=== PATIENT | female | born 1945 | race Two or more races ===

== ENCOUNTER → 2016-07-09 | Outpatient (CLI) | payer MEDICARE, OTHER ==
[~2016-07-09] MED LIST: LEVEMIR SC; LISI-646 PO; METF-312 PO; METO-158 PO; OMEPRAZOLE PO
== END | disposition home or self-care (01) ==
LOC: Rad HDHVI 10:24
PROVIDERS: ATTEND Internal Medicine Cardiovascular Disease
DX: I10 Essential (primary) hypertension (principal); E78.00 Pure hypercholesterolemia, unspecified
CPT/HCPCS: 93306

== ENCOUNTER → 2016-07-23 | Outpatient (CLI) | payer MEDICARE, OTHER | END | disposition home or self-care (01) | LOC: Rad HDHVI 08:33 | PROVIDERS: ATTEND Internal Medicine Cardiovascular Disease | DX: I10 Essential (primary) hypertension (principal); E78.00 Pure hypercholesterolemia, unspecified | CPT/HCPCS: 93880 ==

== ENCOUNTER → 2016-08-07 | Outpatient (CLI) | payer MEDICARE, OTHER ==
[~2016-08-07] VITALS: Ht 149.9 cm; Wt 54.4 kg
== END | disposition home or self-care (01) ==
LOC: Rad HDHVI 09:46
PROVIDERS: ATTEND Internal Medicine Cardiovascular Disease
DX: I07.1 Rheumatic tricuspid insufficiency (principal); I10 Essential (primary) hypertension; I25.2 Old myocardial infarction; E11.9 Type 2 diabetes mellitus without complications; E78.00 Pure hypercholesterolemia, unspecified; Z82.49 Family history of ischemic heart disease and other diseases of the circulatory system
CPT/HCPCS: 78452; 93017; 96374; A9500

== ENCOUNTER → 2017-01-27 | Outpatient (CLI) | payer MEDICARE, OTHER ==
[~2017-01-27] MED LIST changes: +IOHEXOL 350 MG/ML 100ML IJ ONE; -METF-312 PO; +METF-370 PO
[2017-01-27 09:55] VITALS: BP 141/61
[2017-01-27 10:40] VITALS: BP 156/79
== END | disposition home or self-care (01) ==
LOC: Rad HDHVI 09:36
PROVIDERS: ATTEND Internal Medicine Cardiovascular Disease
DX: I65.29 Occlusion and stenosis of unspecified carotid artery (principal); I65.02 Occlusion and stenosis of left vertebral artery; E11.9 Type 2 diabetes mellitus without complications; G51.0 Bell's palsy
CPT/HCPCS: 70498; 82565; 93880; 96374; G0463; Q9967; 70496

== ENCOUNTER → 2017-03-02 | Outpatient (CLI) | payer MEDICARE, OTHER ==
[~2017-03-02] MED LIST changes: +ALBU1AER4 IN; +AMLO10TA2 PO; +ASPI81TA27 PO; +BUDE2SUS3 IN; +CLOP75TA28 PO; +INSLISPI SC; -IOHEXOL 350 MG/ML 100ML IJ ONE; +RAMI2.5C33 PO
[2017-03-02 11:10] VITALS: BP 116/74
[2017-03-02 11:45] VITALS: BP 137/77
[2017-03-02 13:06] LABS: Basophils # (auto) 0 uL; Basophils % (auto) 0.5 % (0.0-2.0); Eosinophils # (auto) 0.3 uL; Hematocrit 42.4 % (36.0-46.0); Hemoglobin 14.7 g/dL (12.2-16.2); Lymphocytes # (auto) 1.9 uL; Lymphocytes % (auto) 32.2 % (10.0-50.0); Mean Corpuscular Hemoglobin 30.9 pg (28.0-32.0); Mean Corpuscular Hgb Conc. 34.6 g/dL (32.0-36.0); Mean Corpuscular Volume 89.3 fL (80.0-100.0); Mean Platelet Volume 8.3 fL (6.9-10.8); Monocytes # (auto) 0.4 uL; Monocytes % (auto) 7.5 % (0.0-12.0); Neutrophils # (auto) 3.2 uL; Neutrophils % (auto) 54.8 % (37.0-80.0); Nucleated Red Blood Cells % 0.1 %; Platelet Count (auto) 206 10^3/uL (140-450); Red Cell Distribution Width 12.7 % (11.8-14.3); White Blood Cell 5.8 10^3/uL (4.4-10.8)
[2017-03-02 13:14] LABS: INR 0.93 (0.9-1.15); Partial Thromboplastin Time 23.6 sec (22.64-33.71); Prothrombin Time 10.1 sec (9.37-12.3)
[2017-03-02 13:29] LABS: BUN/Creatinine Ratio 36.9; Calcium 9.3 mg/dL (8.5-10.1); Potassium 4.6 mmol/L (3.5-5.1)
== END | disposition home or self-care (01) ==
LOC: Rad HDHVI 10:42
PROVIDERS: ATTEND Internal Medicine Cardiovascular Disease
DX: Z01.818 Encounter for other preprocedural examination (principal); I70.0 Atherosclerosis of aorta; I10 Essential (primary) hypertension; D64.9 Anemia, unspecified; R79.1 Abnormal coagulation profile; I65.29 Occlusion and stenosis of unspecified carotid artery; I25.2 Old myocardial infarction; E78.00 Pure hypercholesterolemia, unspecified
CPT/HCPCS: 36415; 71020; 80048; 85025; 85610; 85730; 93005; G0463

== ENCOUNTER → 2017-04-13 | Outpatient (CLI) | payer MEDICARE, OTHER ==
[~2017-04-13] MED LIST changes: -LISI-646 PO; -OMEPRAZOLE PO; +PRAS10TA6 PO
[2017-04-13 11:30] VITALS: BP 163/74
[2017-04-13 11:50] VITALS: BP 153/69
[2017-04-13 16:20] LABS: Basophils # (auto) 0 uL; Basophils % (auto) 0.9 % (0.0-2.0); Eosinophils # (auto) 0.4 uL; Eosinophils % (auto) 8.5 % (0.0-7.0); Lymphocytes # (auto) 1.4 uL; Lymphocytes % (auto) 26.2 % (10.0-50.0); Mean Corpuscular Hemoglobin 30.4 pg (28.0-32.0); Mean Corpuscular Hgb Conc. 34.1 g/dL (32.0-36.0); Mean Corpuscular Volume 89.2 fL (80.0-100.0); Monocytes # (auto) 0.4 uL; Monocytes % (auto) 7.8 % (0.0-12.0); Neutrophils # (auto) 2.9 uL; Neutrophils % (auto) 56.6 % (37.0-80.0); Nucleated Red Blood Cells % 0.1 %; Platelet Count (auto) 204 10^3/uL (140-450); Red Blood Cells 4.59 10^6/uL (4.0-5.20); Red Cell Distribution Width 12.6 % (11.8-14.3); White Blood Cell 5.2 10^3/uL (4.4-10.8)
[2017-04-13 16:35] LABS: INR 0.94 (0.9-1.15); Partial Thromboplastin Time 25.2 sec (22.64-33.71); Prothrombin Time 10.2 sec (9.37-12.3)
[2017-04-13 16:37] LABS: BUN/Creatinine Ratio 36.2; Calcium 8.7 mg/dL (8.5-10.1); Potassium 4.1 mmol/L (3.5-5.1)
== END | disposition home or self-care (01) ==
LOC: Rad HDHVI 10:39
PROVIDERS: ATTEND Internal Medicine Cardiovascular Disease
DX: Z01.812 Encounter for preprocedural laboratory examination (principal); D64.9 Anemia, unspecified; I10 Essential (primary) hypertension; R79.1 Abnormal coagulation profile
CPT/HCPCS: 36415; 71046; 80048; 85025; 85610; 85730; 93005; G0463

== ENCOUNTER 2017-04-16 07:19 | Inpatient (IN) | payer MEDICARE, OTHER ==
[~2017-04-16] VITALS: Ht 149.9 cm; Wt 53.1 kg
[~2017-04-16 07:19] MED LIST changes: -AMLO10TA2 PO; +ANGIOMAX 250 MG VIAL IV ONE; -CLOP75TA28 PO; +fentaNYL CITRATE 100 MCG/2 ML VL ONE
[2017-04-16] MEDS ORDERED: MIDAZOLAM HCL 1MG/1ML-2 ML VIAL ONE (07:20)
[2017-04-16] MEDS ORDERED: IOHEXOL 350 MG/ML 100ML IJ ONE ×2 (07:30→07:37)
[2017-04-16] MEDS ORDERED: LIDOCAINE 2%HCL (LOCAL ANESTH.) INJ 20ML MDV ONE (07:30)
[2017-04-16] MEDS ORDERED: DOPamine 1600MCG/ML D5W 250 ML IV ONE (08:11)
[2017-04-16] MEDS ORDERED: HEPARIN DRIP/D5W 100UNITS/ML 250 ML IV ONE (08:56)
[2017-04-16] MEDS ORDERED: NITROGLYCERIN 0.4 MG SL TAB SL PRN (09:30)
[2017-04-16] MEDS ORDERED: ONDANSETRON HCL 4 MG/2 ML VIAL IV PRN (09:30)
[2017-04-16] MEDS ORDERED: HEPARIN SODIUM (PORCINE) 5000 UNITS/ML 1ML VIAL ONE (09:30)
[2017-04-16] MEDS ORDERED: HEPARIN SODIUM (PORCINE) 5000 UNITS/ML 1ML VIAL IV ONE (09:30)
[2017-04-16] MEDS ORDERED: ZOLPIDEM TARTRATE 5 MG TAB PO PRN (09:30)
[2017-04-16] MEDS ORDERED: LORazepam 0.5 MG TAB PO PRN (09:30)
[2017-04-16] MEDS ORDERED: ACETAMINOPHEN 500 MG TAB PO PRN (09:30)
[2017-04-16] MEDS ORDERED: MORPHINE SULF INJ 2 MG/ML SYRINGE 1ML IV PRN ×2 (09:30)
[2017-04-16] MEDS ORDERED: HEPARIN DRIP/D5W 100UNITS/ML 250 ML IV SCH (09:45)
[2017-04-16] MEDS: HEPARIN DRIP/D5W 100UNITS/ML 250 ML IV SCH (10:15)
[2017-04-16 10:23] LABS: Basophils # (auto) 0 uL; Basophils % (auto) 0.7 % (0.0-2.0); Eosinophils # (auto) 0.3 uL; Hemoglobin 14.8 g/dL (12.2-16.2); Lymphocytes # (auto) 1.3 uL; Lymphocytes % (auto) 22.2 % (10.0-50.0); Mean Corpuscular Hemoglobin 30.2 pg (28.0-32.0); Mean Corpuscular Hgb Conc. 34.3 g/dL (32.0-36.0); Monocytes # (auto) 0.4 uL; Monocytes % (auto) 7.3 % (0.0-12.0); Neutrophils # (auto) 3.8 uL; Neutrophils % (auto) 64.8 % (37.0-80.0); Nucleated Red Blood Cells % 0.2 %; Platelet Count (auto) 205 10^3/uL (140-450); Red Blood Cells 4.89 10^6/uL (4.0-5.20); Red Cell Distribution Width 12.7 % (11.8-14.3); White Blood Cell 5.8 10^3/uL (4.4-10.8)
[2017-04-16] MEDS ORDERED: DEXTROSE (50%) 50ML SYRG IV PRN ×2 (10:30)
[2017-04-16 10:48] LABS: INR 3.45 (0.9-1.15); Prothrombin Time 38.1 sec (9.37-12.3)
[2017-04-16 10:52] LABS: Partial Thromboplastin Time 72.4 sec (22.64-33.71)
[2017-04-16] MEDS: ACCU-CHEK COMFORT CURVE STRIP VI SCH ×3 (10:55→21:50)
[2017-04-16] MEDS: InsuLIN REG 1unit/0.01ml Soln (100units/ml) SC SCH ×3 (10:57→21:54)
[2017-04-16] MEDS ORDERED: InsuLIN REG 1unit/0.01ml Soln (100units/ml) SC SCH (11:30)
[2017-04-16] MEDS ORDERED: ACCU-CHEK COMFORT CURVE STRIP VI SCH (11:30)
[2017-04-16 17:30] VITALS: BP 151/58
[2017-04-16 17:36] LABS: INR 0.98 (0.9-1.15); Partial Thromboplastin Time 39.9 sec (22.64-33.71); Prothrombin Time 10.7 sec (9.37-12.3)
[2017-04-16 20:00] VITALS: BP 136/70
[2017-04-16] MEDS ORDERED: INSULIN DETEMIR(LEVEMIR) 1unit/0.01ml Soln (100units/ml) SC SCH (22:00)
[2017-04-17] VITALS (7 sets, daily range): BP systolic 113–150; BP diastolic 61–77
[2017-04-17 01:03] LABS: INR 0.96 (0.9-1.15); Partial Thromboplastin Time 45.8 sec (22.64-33.71); Prothrombin Time 10.5 sec (9.37-12.3)
[2017-04-17 05:37] LABS: Basophils # (auto) 0 uL; Basophils % (auto) 0.5 % (0.0-2.0); Eosinophils # (auto) 0.4 uL; Eosinophils % (auto) 5.4 % (0.0-7.0); Hematocrit 41.6 % (36.0-46.0); Hemoglobin 14.3 g/dL (12.2-16.2); Lymphocytes % (auto) 28.4 % (10.0-50.0); Mean Corpuscular Hemoglobin 30.2 pg (28.0-32.0); Mean Corpuscular Hgb Conc. 34.4 g/dL (32.0-36.0); Mean Corpuscular Volume 87.6 fL (80.0-100.0); Monocytes # (auto) 0.6 uL; Monocytes % (auto) 8.8 % (0.0-12.0); Neutrophils # (auto) 4.1 uL; Neutrophils % (auto) 56.9 % (37.0-80.0); Nucleated Red Blood Cells % 0.1 %; Platelet Count (auto) 212 10^3/uL (140-450); Red Blood Cells 4.75 10^6/uL (4.0-5.20); Red Cell Distribution Width 12.7 % (11.8-14.3); White Blood Cell 7.2 10^3/uL (4.4-10.8)
[2017-04-17 05:54] LABS: Calcium 8.8 mg/dL (8.5-10.1); Potassium 3.8 mmol/L (3.5-5.1)
[2017-04-17 05:55] LABS: INR 0.96 (0.9-1.15); Partial Thromboplastin Time 56.5 sec (22.64-33.71); Prothrombin Time 10.5 sec (9.37-12.3)
[2017-04-17] MEDS: InsuLIN REG 1unit/0.01ml Soln (100units/ml) SC SCH ×3 (06:41→17:31)
[2017-04-17] MEDS: ACCU-CHEK COMFORT CURVE STRIP VI SCH ×3 (06:41→17:31)
[2017-04-17] MEDS: HEPARIN DRIP/D5W 100UNITS/ML 250 ML IV SCH (12:00)
[2017-04-17 15:15] LABS: INR 0.97 (0.9-1.15); Prothrombin Time 10.6 sec (9.37-12.3)
[2017-04-17 22:22] LABS: INR 0.99 (0.9-1.15); Prothrombin Time 10.8 sec (9.37-12.3)
[2017-04-18 04:00] VITALS: BP 133/67
[2017-04-18 05:55] LABS: INR 0.98 (0.9-1.15); Prothrombin Time 10.7 sec (9.37-12.3)
[2017-04-18 06:03] LABS: Partial Thromboplastin Time 72.3 sec (22.64-33.71)
[2017-04-18] MEDS: InsuLIN REG 1unit/0.01ml Soln (100units/ml) SC SCH ×5 (06:38→22:07)
[2017-04-18] MEDS: INSULIN DETEMIR(LEVEMIR) 1unit/0.01ml Soln (100units/ml) SC SCH ×3 (06:38→22:08)
[2017-04-18] MEDS: ACCU-CHEK COMFORT CURVE STRIP VI SCH ×5 (06:39→22:08)
[2017-04-18] MEDS: HEPARIN DRIP/D5W 100UNITS/ML 250 ML IV SCH (10:26)
[2017-04-18 11:59] VITALS: BP 134/74
[2017-04-18 16:47] VITALS: BP 143/64
[2017-04-18 20:00] VITALS: BP 145/70
[2017-04-19] VITALS (7 sets, daily range): BP systolic 114–152; BP diastolic 55–74
[2017-04-19] MEDS: HYDROcodone-ACET 5/325MG TAB PO PRN ×2 (04:50→20:25)
[2017-04-19] MEDS: INSULIN DETEMIR(LEVEMIR) 1unit/0.01ml Soln (100units/ml) SC SCH ×2 (06:39→22:20)
[2017-04-19] MEDS: InsuLIN REG 1unit/0.01ml Soln (100units/ml) SC SCH ×4 (06:39→22:20)
[2017-04-19] MEDS: ACCU-CHEK COMFORT CURVE STRIP VI SCH ×4 (06:40→22:20)
[2017-04-19] MEDS: HEPARIN DRIP/D5W 100UNITS/ML 250 ML IV SCH (07:30)
[2017-04-19 07:39] LABS: Basophils # (auto) 0.1 uL; Basophils % (auto) 0.9 % (0.0-2.0); Eosinophils # (auto) 0.4 uL; Eosinophils % (auto) 7.1 % (0.0-7.0); Hematocrit 38.5 % (36.0-46.0); Hemoglobin 13.2 g/dL (12.2-16.2); Lymphocytes # (auto) 1.9 uL; Lymphocytes % (auto) 33.4 % (10.0-50.0); Mean Corpuscular Hemoglobin 30.3 pg (28.0-32.0); Mean Corpuscular Hgb Conc. 34.4 g/dL (32.0-36.0); Mean Corpuscular Volume 88.2 fL (80.0-100.0); Monocytes # (auto) 0.5 uL; Monocytes % (auto) 8.8 % (0.0-12.0); Neutrophils # (auto) 2.9 uL; Neutrophils % (auto) 49.8 % (37.0-80.0); Platelet Count (auto) 193 10^3/uL (140-450); Red Blood Cells 4.36 10^6/uL (4.0-5.20); Red Cell Distribution Width 12.9 % (11.8-14.3); White Blood Cell 5.8 10^3/uL (4.4-10.8)
[2017-04-19 07:59] LABS: Albumin 2.8 g/dL (3.4-5.0); BUN/Creatinine Ratio 35.8; Calcium 9.2 mg/dL (8.5-10.1); Potassium 3.9 mmol/L (3.5-5.1)
[2017-04-19 08:01] LABS: Bilirubin, Total 0.6 mg/dL (0.2-1.0); Total Protein 6.7 g/dL (6.4-8.2)
[2017-04-19 08:02] LABS: INR 0.96 (0.9-1.15); Prothrombin Time 10.5 sec (9.37-12.3)
[2017-04-19 08:40] LABS: Partial Thromboplastin Time 73.8 sec (22.64-33.71)
[2017-04-20] VITALS: BP_SYST 102; BP_SYST 157; BP_DIAS 57; BP_DIAS 73
[2017-04-20 04:00] VITALS: BP 121/72
[2017-04-20 05:55] LABS: Basophils # (auto) 0 uL; Basophils % (auto) 0.5 % (0.0-2.0); Eosinophils # (auto) 0.5 uL; Eosinophils % (auto) 8.7 % (0.0-7.0); Hematocrit 40.2 % (36.0-46.0); Hemoglobin 13.7 g/dL (12.2-16.2); Lymphocytes # (auto) 1.9 uL; Lymphocytes % (auto) 36.4 % (10.0-50.0); Mean Corpuscular Hemoglobin 30.2 pg (28.0-32.0); Mean Corpuscular Hgb Conc. 34.1 g/dL (32.0-36.0); Mean Corpuscular Volume 88.3 fL (80.0-100.0); Monocytes # (auto) 0.5 uL; Monocytes % (auto) 9.6 % (0.0-12.0); Neutrophils # (auto) 2.3 uL; Neutrophils % (auto) 44.8 % (37.0-80.0); Nucleated Red Blood Cells % 0.1 %; Platelet Count (auto) 205 10^3/uL (140-450); Red Blood Cells 4.55 10^6/uL (4.0-5.20); White Blood Cell 5.2 10^3/uL (4.4-10.8)
[2017-04-20] MEDS: InsuLIN REG 1unit/0.01ml Soln (100units/ml) SC SCH ×4 (06:31→22:00)
[2017-04-20] MEDS: ACCU-CHEK COMFORT CURVE STRIP VI SCH ×4 (06:31→22:06)
[2017-04-20] MEDS: INSULIN DETEMIR(LEVEMIR) 1unit/0.01ml Soln (100units/ml) SC SCH ×2 (06:31→22:07)
[2017-04-20] MEDS: HEPARIN DRIP/D5W 100UNITS/ML 250 ML IV SCH (07:08)
[2017-04-20 08:00] VITALS: BP 128/64
[2017-04-20 12:00] VITALS: BP 127/76
[2017-04-20 15:56] VITALS: BP 137/70
[2017-04-20 19:59] VITALS: BP 125/71
[2017-04-20] MEDS: HYDROcodone-ACET 5/325MG TAB PO PRN (22:07)
[2017-04-21] VITALS: BP 133/68
[2017-04-21 04:00] VITALS: BP 143/69
[2017-04-21 05:30] LABS: Basophils # (auto) 0 uL; Basophils % (auto) 0.5 % (0.0-2.0); Eosinophils # (auto) 0.5 uL; Eosinophils % (auto) 9.6 % (0.0-7.0); Hematocrit 41.7 % (36.0-46.0); Hemoglobin 14.1 g/dL (12.2-16.2); Lymphocytes # (auto) 2.1 uL; Lymphocytes % (auto) 43.5 % (10.0-50.0); Mean Corpuscular Hemoglobin 30.5 pg (28.0-32.0); Mean Corpuscular Hgb Conc. 33.9 g/dL (32.0-36.0); Mean Corpuscular Volume 89.9 fL (80.0-100.0); Monocytes # (auto) 0.5 uL; Monocytes % (auto) 9.9 % (0.0-12.0); Neutrophils # (auto) 1.7 uL; Neutrophils % (auto) 36.5 % (37.0-80.0); Nucleated Red Blood Cells % 0.1 %; Platelet Count (auto) 193 10^3/uL (140-450); Red Blood Cells 4.64 10^6/uL (4.0-5.20); Red Cell Distribution Width 12.9 % (11.8-14.3); White Blood Cell 4.7 10^3/uL (4.4-10.8)
[2017-04-21 05:57] LABS: INR 0.95 (0.9-1.15); Prothrombin Time 10.4 sec (9.37-12.3)
[2017-04-21] MEDS: INSULIN DETEMIR(LEVEMIR) 1unit/0.01ml Soln (100units/ml) SC SCH ×2 (06:24→21:26)
[2017-04-21] MEDS: ACCU-CHEK COMFORT CURVE STRIP VI SCH ×4 (06:24→21:26)
[2017-04-21] MEDS: InsuLIN REG 1unit/0.01ml Soln (100units/ml) SC SCH ×4 (06:25→21:26)
[2017-04-21 08:00] VITALS: BP 144/69
[2017-04-21] MEDS: HEPARIN DRIP/D5W 100UNITS/ML 250 ML IV SCH (09:27)
[2017-04-21 11:50] VITALS: BP 136/76
[2017-04-21 12:51] LABS: INR 0.93 (0.9-1.15); Partial Thromboplastin Time 53.6 sec (22.64-33.71); Prothrombin Time 10.1 sec (9.37-12.3)
[2017-04-21 15:50] VITALS: BP 138/66
[2017-04-21 19:32] LABS: INR 0.95 (0.9-1.15); Prothrombin Time 10.4 sec (9.37-12.3)
[2017-04-21 19:54] VITALS: BP 137/67
[2017-04-21] MEDS: HYDROcodone-ACET 5/325MG TAB PO PRN (21:27)
[2017-04-22] VITALS (7 sets, daily range): BP systolic 136–154; BP diastolic 73–79
[2017-04-22 04:20] LABS: INR 0.94 (0.9-1.15); Prothrombin Time 10.2 sec (9.37-12.3)
[2017-04-22] MEDS: InsuLIN REG 1unit/0.01ml Soln (100units/ml) SC SCH ×4 (06:25→22:00)
[2017-04-22] MEDS: INSULIN DETEMIR(LEVEMIR) 1unit/0.01ml Soln (100units/ml) SC SCH ×2 (06:25→22:00)
[2017-04-22] MEDS: ACCU-CHEK COMFORT CURVE STRIP VI SCH ×5 (06:25→23:52)
[2017-04-22] MEDS ORDERED: VANCOMYCIN 1GM/250ML 250 ML IV ONE (07:30)
[2017-04-22] MEDS ORDERED: ACCU-CHEK COMFORT CURVE STRIP VI ONE (07:30)
[2017-04-22] MEDS: HEPARIN DRIP/D5W 100UNITS/ML 250 ML IV SCH (09:45)
[2017-04-22] MEDS: CHLORHEXIDINE 4% TOPICAL soln 473ML TOP SCH ×2 (10:00→22:00)
[2017-04-22 10:05] LABS: INR 0.95 (0.9-1.15); Prothrombin Time 10.4 sec (9.37-12.3)
[2017-04-22 11:09] LABS: Partial Thromboplastin Time 82.6 sec (22.64-33.71)
[2017-04-22] MEDS ORDERED: ALBUMIN 25% 400 ML IV ONE (13:33)
[2017-04-22 13:39] LABS: Urine Bacteria NONE SEEN /hpf (None Seen); Urine Blood Negative /uL (Negative); Urine Specific Gravity 1.006 (1.001-1.035); Urine WBC 1 /hpf (0 - 5)
[2017-04-22] MEDS: HYDROcodone-ACET 5/325MG TAB PO PRN (21:07)
[2017-04-22] MEDS ORDERED: ASCORBIC ACID 500 MG TAB PO ONE (22:00)
[2017-04-22] MEDS ORDERED: InsuLIN R (HUMAN) 100 UNITS in SODIUM CHL 0.9% 99 ML IV SCH ×8 (23:26)
[2017-04-22] MEDS ORDERED: DEXTROSE (50%) 50ML SYRG IV PRN (23:30)
[2017-04-23] VITALS (53 sets, daily range): BP systolic 102–167; BP diastolic 49–87
[2017-04-23] MEDS: ACCU-CHEK COMFORT CURVE STRIP VI SCH ×17 (01:30→23:00)
[2017-04-23] MEDS: CHLORHEXIDINE 4% TOPICAL soln 473ML TOP SCH ×2 (01:30→22:00)
[2017-04-23] MEDS ORDERED: CHLORHEXIDINE 4% TOPICAL soln 473ML TOP ONE (02:00)
[2017-04-23 03:43] LABS: Basophils # (auto) 0 uL; Basophils % (auto) 0.4 % (0.0-2.0); Eosinophils # (auto) 0.4 uL; Eosinophils % (auto) 6.1 % (0.0-7.0); Hematocrit 39.1 % (36.0-46.0); Hemoglobin 13.6 g/dL (12.2-16.2); Lymphocytes # (auto) 1.8 uL; Lymphocytes % (auto) 31.9 % (10.0-50.0); Mean Corpuscular Hemoglobin 30.6 pg (28.0-32.0); Mean Corpuscular Hgb Conc. 34.8 g/dL (32.0-36.0); Monocytes # (auto) 0.7 uL; Monocytes % (auto) 11.4 % (0.0-12.0); Neutrophils # (auto) 2.9 uL; Neutrophils % (auto) 50.2 % (37.0-80.0); Platelet Count (auto) 209 10^3/uL (140-450); Red Blood Cells 4.44 10^6/uL (4.0-5.20); Red Cell Distribution Width 12.9 % (11.8-14.3); White Blood Cell 5.8 10^3/uL (4.4-10.8)
[2017-04-23 03:56] LABS: INR 0.95 (0.9-1.15); Partial Thromboplastin Time 35.4 sec (22.64-33.71); Prothrombin Time 10.3 sec (9.37-12.3)
[2017-04-23 04:08] LABS: Albumin 3.1 g/dL (3.4-5.0); BUN/Creatinine Ratio 33.3; Bilirubin, Total 0.4 mg/dL (0.2-1.0); Calcium 8.9 mg/dL (8.5-10.1); Potassium 3.9 mmol/L (3.5-5.1); Total Protein 7.4 g/dL (6.4-8.2)
[2017-04-23] MEDS ORDERED: ALBUMIN 5% 750 ML IV ONE (05:54)
[2017-04-23] MEDS ORDERED: ALBUMIN 25% 400 ML IV ONE (05:54)
[2017-04-23] MEDS ORDERED: NITROGLYCERIN 50MG/250ML 250 ML IV ONE (05:55)
[2017-04-23] MEDS ORDERED: PROPOFOL 200 ML IV ONE (05:55)
[2017-04-23] MEDS ORDERED: CALCIUM CHLOR(10%) 100MG/ML 10ML SYRINGE IV ONE ×2 (05:55→16:13)
[2017-04-23] MEDS ORDERED: ROCURONIUM 10MG/ML 10ML VIAL IV ONE (05:56)
[2017-04-23] MEDS ORDERED: fentaNYL CITRATE 10 ML ONE (06:02)
[2017-04-23] MEDS ORDERED: MIDAZOLAM HCL 1MG/1ML-2 ML VIAL ONE ×2 (06:03)
[2017-04-23] MEDS: INSULIN DETEMIR(LEVEMIR) 1unit/0.01ml Soln (100units/ml) SC SCH ×2 (06:23→22:00)
[2017-04-23] MEDS ORDERED: PAPAVERINE HCL 60 MG/2 ML 2ML VIAL ONE (06:46)
[2017-04-23] MEDS ORDERED: BACITRACIN INJ 50000 UNIT VIAL ONE (06:47)
[2017-04-23] MEDS ORDERED: HEPARIN 1,000 UNITS/ml 1ML VIAL ONE (06:47)
[2017-04-23] MEDS ORDERED: NEOMYCIN-BACITRACIN-POLYM 15GM TOP OINT TOP ONE (06:59)
[2017-04-23] MEDS ORDERED: CHLORHEXIDINE 0.12% ORAL rinse 473ML MT ONE (07:30)
[2017-04-23] MEDS ORDERED: AZTREONAM 1GM INJ 1 GM in D5W 5% 50 ML IV ONE (07:30)
[2017-04-23] MEDS ORDERED: VASOPRESSIN 50 UNITS in SODIUM CHL 0.9% 247.5 ML IV ONE (08:00)
[2017-04-23] MEDS ORDERED: EPINEPHrine HCL 4 MG in D5W 5% 250 ML IV ONE (08:00)
[2017-04-23] MEDS ORDERED: InsuLIN R (HUMAN) 100 UNITS in SODIUM CHL 0.9% 99 ML IV ONE (08:00)
[2017-04-23] MEDS ORDERED: HEPARIN 30000 UNITS in SODIUM CHLORIDE 0.9% 1000 ML IV ONE (08:00)
[2017-04-23] MEDS ORDERED: PHENYLEPHRINE INJ 20 MG in SODIUM CHL 0.9% 250 ML IV ONE (08:00)
[2017-04-23] MEDS ORDERED: NOREPINEPHRINE 8 MG/250ML KIT 250 ML IV ONE (08:00)
[2017-04-23] MEDS ORDERED: AMINOCAPROIC ACID 5 GM in SODIUM CHL 0.9% 250 ML IV ONE (08:00)
[2017-04-23] MEDS ORDERED: AMINOCAPROIC ACID 10 GM in SODIUM CHL 0.9% 100 ML IV ONE (08:00)
[2017-04-23] MEDS ORDERED: PLASMA-LYTE A pH7.4 5,000 ML INJ ONE (09:41)
[2017-04-23] MEDS: HEPARIN DRIP/D5W 100UNITS/ML 250 ML IV SCH (09:45)
[2017-04-23] MEDS ORDERED: ESMOLOL HCL IV ONE (10:08)
[2017-04-23 13:44] LABS: Basophils # (auto) 0 uL; Basophils % (auto) 0.2 % (0.0-2.0); Eosinophils # (auto) 0.1 uL; Hematocrit 25.9 % (36.0-46.0); Hemoglobin 9.1 g/dL (12.2-16.2); Lymphocytes % (auto) 13.2 % (10.0-50.0); Mean Corpuscular Hemoglobin 31.4 pg (28.0-32.0); Mean Corpuscular Hgb Conc. 35.1 g/dL (32.0-36.0); Mean Corpuscular Volume 89.3 fL (80.0-100.0); Monocytes # (auto) 0.2 uL; Monocytes % (auto) 2.4 % (0.0-12.0); Neutrophils # (auto) 6.4 uL; Neutrophils % (auto) 83.2 % (37.0-80.0); Nucleated Red Blood Cells % 0.1 %; Platelet Count (auto) 90 10^3/uL (140-450); Red Cell Distribution Width 12.9 % (11.8-14.3); White Blood Cell 7.7 10^3/uL (4.4-10.8)
[2017-04-23 13:56] LABS: INR 1.23 (0.9-1.15); Partial Thromboplastin Time 30.1 sec (22.64-33.71); Prothrombin Time 13.4 sec (9.37-12.3)
[2017-04-23 14:07] LABS: Albumin 4.4 g/dL (3.4-5.0); Bilirubin, Total 1.2 mg/dL (0.2-1.0); Calcium 10.3 mg/dL (8.5-10.1); Potassium 4.1 mmol/L (3.5-5.1); Total Protein 6.4 g/dL (6.4-8.2)
[2017-04-23] MEDS ORDERED: INSULIN DRIP 100 UNIT/100ML 100 ML IV SCH (14:32)
[2017-04-23] MEDS ORDERED: PHENYLEPHRINE IV 250 ML IV SCH (14:33)
[2017-04-23] MEDS ORDERED: NITROGLYCERIN 50MG/250ML 250 ML IV SCH (14:33)
[2017-04-23] MEDS ORDERED: PROPOFOL 100 ML IV SCH (14:33)
[2017-04-23] MEDS ORDERED: NICARDIPINE 25MG/250ML BAG KIT 250 ML IV SCH (14:33)
[2017-04-23] MEDS ORDERED: DEXMEDETOMIDINE HCL 400 MCG in D5W 5% 96 ML IV SCH (14:42)
[2017-04-23] MEDS ORDERED: AMIODARONE HCL 900 MG in DEXTROSE 500 ML IV SCH (14:43)
[2017-04-23] MEDS ORDERED: SODIUM BICARBONATE 8.4% INJ 50ML SYRINGE IV PRN (14:45)
[2017-04-23] MEDS ORDERED: CALCIUM GLUC 4.65meq/50ml D5AE 50 ML IV PRN (14:45)
[2017-04-23] MEDS ORDERED: VANCOMYCIN 1GM/250ML 250 ML IV SCH (14:45)
[2017-04-23] MEDS ORDERED: ZOLPIDEM TARTRATE 5 MG TAB PO PRN (14:45)
[2017-04-23] MEDS ORDERED: MAGNESIUM SULFATE 1GM/100ML 100 ML IV PRN (14:45)
[2017-04-23] MEDS ORDERED: ONDANSETRON HCL 4 MG/2 ML VIAL IV PRN (14:45)
[2017-04-23] MEDS ORDERED: fentaNYL CITRATE 100 MCG/2 ML VL IV PRN (14:45)
[2017-04-23] MEDS ORDERED: MORPHINE SULFATE 10 MG/ML INJ 1ML SDV IV PRN ×3 (14:45)
[2017-04-23] MEDS ORDERED: FUROSEMIDE 20 MG/2 ML VIAL IV PRN (14:45)
[2017-04-23] MEDS ORDERED: AMIODARONE HCL 150 MG in D5W 5% 100 ML IV ONE (14:45)
[2017-04-23] MEDS ORDERED: DEXTROSE (50%) 50ML SYRG IV PRN (14:45)
[2017-04-23] MEDS ORDERED: METOCLOPRAMIDE HCL 5MG/ml INJ 2ml VIAL IV PRN (14:45)
[2017-04-23] MEDS: SODIUM CHLORIDE 0.9% 500 ML IV SCH (15:00)
[2017-04-23] MEDS: SODIUM CHLORIDE 0.9% 1,000 ML IV SCH (15:00)
[2017-04-23 15:09] LABS: Basophils # (auto) 0 uL; Basophils % (auto) 0.2 % (0.0-2.0); Eosinophils # (auto) 0.1 uL; Eosinophils % (auto) 0.9 % (0.0-7.0); Hematocrit 31.4 % (36.0-46.0); Lymphocytes # (auto) 1.1 uL; Lymphocytes % (auto) 11.8 % (10.0-50.0); Mean Corpuscular Hemoglobin 31.5 pg (28.0-32.0); Mean Corpuscular Hgb Conc. 34.9 g/dL (32.0-36.0); Mean Corpuscular Volume 90.1 fL (80.0-100.0); Monocytes # (auto) 0.6 uL; Neutrophils # (auto) 7.7 uL; Neutrophils % (auto) 81.1 % (37.0-80.0); Platelet Count (auto) 86 10^3/uL (140-450); Red Blood Cells 3.48 10^6/uL (4.0-5.20); Red Cell Distribution Width 12.5 % (11.8-14.3); White Blood Cell 9.5 10^3/uL (4.4-10.8)
[2017-04-23 15:22] LABS: INR 1.07 (0.9-1.15); Partial Thromboplastin Time 26.8 sec (22.64-33.71); Prothrombin Time 11.7 sec (9.37-12.3)
[2017-04-23] MEDS ORDERED: METOPROLOL TARTRATE 1MG/1ML-5ML VIAL IV ONE (15:30)
[2017-04-23 15:37] LABS: BUN/Creatinine Ratio 18.8; Bilirubin, Total 1.6 mg/dL (0.2-1.0); Calcium 9.5 mg/dL (8.5-10.1); Potassium 3.3 mmol/L (3.5-5.1); Total Protein 6.9 g/dL (6.4-8.2)
[2017-04-23 15:44] LABS: Phosphorus 0.5 mg/dL (2.5-4.90)
[2017-04-23 15:45] LABS: Magnesium 5.5 mg/dL (1.6-2.6)
[2017-04-23] MEDS: POTASSIUM CHL 20MEQ/50ML 50 ML IV PRN ×2 (16:13→18:02)
[2017-04-23] MEDS ORDERED: AMINOCAPROIC ACID 5 GM/20 ML VL IV ONE (16:13)
[2017-04-23] MEDS ORDERED: MAGNESIUM SULF 50% 40 MEQ/10 ML VL IV ONE (16:13)
[2017-04-23] MEDS ORDERED: ADENOSINE 6 MG/2 ML INJ IV ONE (16:13)
[2017-04-23] MEDS ORDERED: LIDOCAINE HCL 100 MG/5ML (2%) SYRG INJ IV ONE (16:13)
[2017-04-23] MEDS ORDERED: DEXAMETHASONE SODIUM PHOSP 120 MG/30ml VIAL IV ONE (16:13)
[2017-04-23] MEDS ORDERED: SODIUM BICARBONATE 8.4 % INJ 50ML VIAL IV ONE (16:13)
[2017-04-23] MEDS ORDERED: POTASSIUM CHL 2MEQ/ML 20ML IV ONE (16:13)
[2017-04-23] MEDS ORDERED: PHENYLEPHRINE HCL 10 MG/ML VL IV ONE (16:13)
[2017-04-23] MEDS ORDERED: MANNITOL 20% SOLN 100 gm/500ml BAG IV ONE (16:20)
[2017-04-23] MEDS ORDERED: ALBUMIN 25% 50 ML IV ONE (17:30)
[2017-04-23] MEDS: IPRATROPIUM BROM 0.5 MG/2.5ML INH SOL NEB SCH ×2 (17:59→22:20)
[2017-04-23] MEDS ORDERED: METOPROLOL TARTRATE 1MG/1ML-5ML VIAL IV SCH ×2 (18:00)
[2017-04-23 20:01] LABS: Basophils # (auto) 0 uL; Basophils % (auto) 0.2 % (0.0-2.0); Eosinophils # (auto) 0 uL; Eosinophils % (auto) 0.2 % (0.0-7.0); Hematocrit 31.9 % (36.0-46.0); Hemoglobin 11.1 g/dL (12.2-16.2); Lymphocytes # (auto) 0.7 uL; Lymphocytes % (auto) 7.7 % (10.0-50.0); Mean Corpuscular Hemoglobin 31.2 pg (28.0-32.0); Mean Corpuscular Hgb Conc. 34.8 g/dL (32.0-36.0); Mean Corpuscular Volume 89.9 fL (80.0-100.0); Monocytes # (auto) 0.7 uL; Monocytes % (auto) 8.3 % (0.0-12.0); Neutrophils # (auto) 7.1 uL; Neutrophils % (auto) 83.6 % (37.0-80.0); Platelet Count (auto) 98 10^3/uL (140-450); Red Blood Cells 3.54 10^6/uL (4.0-5.20); Red Cell Distribution Width 13.3 % (11.8-14.3); White Blood Cell 8.4 10^3/uL (4.4-10.8)
[2017-04-23 20:22] LABS: BUN/Creatinine Ratio 18.4; Calcium 9.7 mg/dL (8.5-10.1); Potassium 4.4 mmol/L (3.5-5.1)
[2017-04-23 20:26] LABS: Magnesium 4.6 mg/dL (1.6-2.6); Phosphorus 0.7 mg/dL (2.5-4.90)
[2017-04-23] MEDS: ALBUMIN 5% 250 ML IV PRN ×2 (20:40→21:34)
[2017-04-23] MEDS: AMIODARONE HCL 900 MG in DEXTROSE 500 ML IV SCH (20:43)
[2017-04-23] MEDS ORDERED: POTASSIUM PHOSPHATE 22 MEQ in SODIUM CHL 0.9% 100 ML IV ONE (20:45)
[2017-04-23] MEDS: AZTREONAM 1GM INJ 1 GM in D5W 5% 50 ML IV SCH (22:18)
[2017-04-23] MEDS: CHLORHEXIDINE 0.12% ORAL rinse 473ML MT SCH (22:18)
[2017-04-23] MEDS: ACETYLCYSTEINE 10 %(100MG/ML) SOL 4ML NEB SCH (22:20)
[2017-04-24] VITALS (100 sets, daily range): BP systolic 101–159; BP diastolic 53–96
[2017-04-24] MEDS ORDERED: METOPROLOL TARTRATE 1MG/1ML-5ML VIAL IV SCH
[2017-04-24] MEDS: ACCU-CHEK COMFORT CURVE STRIP VI SCH ×21 (00:29→23:24)
[2017-04-24 00:39] LABS: Potassium 4.2 mmol/L (3.5-5.1)
[2017-04-24 00:42] LABS: Magnesium 3.9 mg/dL (1.6-2.6)
[2017-04-24] MEDS: ALBUMIN 5% 250 ML IV PRN ×2 (01:03→12:39)
[2017-04-24] MEDS: IPRATROPIUM BROM 0.5 MG/2.5ML INH SOL NEB SCH ×6 (02:19→22:08)
[2017-04-24 04:43] LABS: Basophils # (auto) 0 uL; Basophils % (auto) 0.1 % (0.0-2.0); Eosinophils # (auto) 0 uL; Hematocrit 30.9 % (36.0-46.0); Hemoglobin 10.6 g/dL (12.2-16.2); Lymphocytes # (auto) 0.7 uL; Lymphocytes % (auto) 7.7 % (10.0-50.0); Mean Corpuscular Hemoglobin 30.9 pg (28.0-32.0); Mean Corpuscular Hgb Conc. 34.2 g/dL (32.0-36.0); Mean Corpuscular Volume 90.2 fL (80.0-100.0); Monocytes # (auto) 1.1 uL; Monocytes % (auto) 11.2 % (0.0-12.0); Neutrophils # (auto) 7.6 uL; Platelet Count (auto) 101 10^3/uL (140-450); Red Blood Cells 3.42 10^6/uL (4.0-5.20); Red Cell Distribution Width 13.1 % (11.8-14.3); White Blood Cell 9.4 10^3/uL (4.4-10.8)
[2017-04-24] MEDS: SODIUM CHLORIDE 0.9% 1,000 ML IV SCH (04:51)
[2017-04-24 04:55] LABS: BUN/Creatinine Ratio 27.8; Magnesium 3.9 mg/dL (1.6-2.6); Phosphorus 3.9 mg/dL (2.5-4.90); Potassium 4.2 mmol/L (3.5-5.1)
[2017-04-24] MEDS: VANCOMYCIN 1GM/250ML 250 ML IV SCH ×2 (05:18→17:39)
[2017-04-24] MEDS: ACETYLCYSTEINE 10 %(100MG/ML) SOL 4ML NEB SCH ×3 (05:50→18:35)
[2017-04-24] MEDS: AZTREONAM 1GM INJ 1 GM in D5W 5% 50 ML IV SCH ×3 (06:50→22:24)
[2017-04-24] MEDS: INSULIN DETEMIR(LEVEMIR) 1unit/0.01ml Soln (100units/ml) SC SCH ×2 (07:00→22:00)
[2017-04-24] MEDS ORDERED: ALBUMIN 25% 50 ML IV ONE ×3 (08:30→10:30)
[2017-04-24] MEDS ORDERED: PANTOPRAZOLE 40 MG/10 ML VIAL IV SCH (10:00)
[2017-04-24] MEDS: CHLORHEXIDINE 4% TOPICAL soln 473ML TOP SCH ×2 (10:00→22:00)
[2017-04-24] MEDS: CHLORHEXIDINE 0.12% ORAL rinse 473ML MT SCH ×2 (10:27→22:00)
[2017-04-24] MEDS ORDERED: HYDROcodone-ACET 7.5/325MG TAB PO PRN (12:30)
[2017-04-24] MEDS ORDERED: MORPHINE SULFATE 10 MG/ML INJ 1ML SDV IV PRN (12:30)
[2017-04-24] MEDS ORDERED: SENNA 8.6 MG TAB PO PRN (12:30)
[2017-04-24] MEDS ORDERED: HYDROcodone-ACET 5/325MG TAB PO PRN (12:30)
[2017-04-24] MEDS ORDERED: FUROSEMIDE 20 MG/2 ML VIAL ONE (12:45)
[2017-04-24] MEDS ORDERED: ZOLPIDEM TARTRATE 5 MG TAB PO PRN (12:45)
[2017-04-24] MEDS ORDERED: ASPirin-EC 81 mg tab PO ONE (12:45)
[2017-04-24] MEDS ORDERED: FUROSEMIDE 20 MG/2 ML VIAL IV ONE (12:45)
[2017-04-24] MEDS ORDERED: SODIUM CHLORIDE 0.9% 1,000 ML IV SCH (12:45)
[2017-04-24] MEDS ORDERED: ASCORBIC ACID 500 MG TAB PO ONE (13:00)
[2017-04-24] MEDS: SODIUM CHLORIDE 0.9% 500 ML IV SCH (14:33)
[2017-04-24 15:07] LABS: Basophils # (auto) 0 uL; Basophils % (auto) 0.1 % (0.0-2.0); Eosinophils # (auto) 0 uL; Hematocrit 27.9 % (36.0-46.0); Hemoglobin 9.5 g/dL (12.2-16.2); Lymphocytes # (auto) 0.6 uL; Lymphocytes % (auto) 5.9 % (10.0-50.0); Mean Corpuscular Hemoglobin 31.1 pg (28.0-32.0); Mean Corpuscular Hgb Conc. 34.2 g/dL (32.0-36.0); Mean Corpuscular Volume 91.1 fL (80.0-100.0); Monocytes # (auto) 0.9 uL; Monocytes % (auto) 9.2 % (0.0-12.0); Neutrophils # (auto) 8.5 uL; Neutrophils % (auto) 84.8 % (37.0-80.0); Platelet Count (auto) 97 10^3/uL (140-450); Red Blood Cells 3.07 10^6/uL (4.0-5.20); Red Cell Distribution Width 13.8 % (11.8-14.3)
[2017-04-24 15:25] LABS: Calcium 8.5 mg/dL (8.5-10.1); Magnesium 3.1 mg/dL (1.6-2.6); Phosphorus 4.6 mg/dL (2.5-4.90); Potassium 3.6 mmol/L (3.5-5.1)
[2017-04-24] MEDS: PROPRANOLOL HCL 1 MG/ML VIAL IV PRN (16:43)
[2017-04-24] MEDS: POTASSIUM CHL 20MEQ/100ML 100 ML IV PRN ×2 (16:54→18:53)
[2017-04-24] MEDS ORDERED: INSULIN DRIP 100 UNIT/100ML 100 ML IV SCH (17:30)
[2017-04-24] MEDS ORDERED: DEXTROSE (50%) 50ML SYRG IV PRN (17:30)
[2017-04-24] MEDS ORDERED: METOPROLOL TARTRATE 25 MG TAB PO ONE (17:45)
[2017-04-24] MEDS: FUROSEMIDE 40 MG TAB PO SCH (18:01)
[2017-04-24] MEDS: Boost Glucose Control 8 Ounces PO SCH (18:48)
[2017-04-24] MEDS: AMIODARONE HCL 900 MG in DEXTROSE 500 ML IV SCH (20:43)
[2017-04-24] MEDS ORDERED: METOPROLOL TARTRATE 25 MG TAB PO SCH (22:00)
[2017-04-24] MEDS: ATORVASTATIN 20 MG TAB PO SCH (22:30)
[2017-04-24] MEDS: ASCORBIC ACID 500 MG TAB PO SCH (22:30)
[2017-04-24] MEDS: DOCUSATE SOD 100 MG CAP PO SCH (22:30)
[2017-04-25] VITALS (95 sets, daily range): BP systolic 107–164; BP diastolic 50–95
[2017-04-25] MEDS: ACCU-CHEK COMFORT CURVE STRIP VI SCH ×20 (01:00→23:00)
[2017-04-25] MEDS: POTASSIUM CHL 20MEQ/100ML 100 ML IV PRN ×4 (03:56→21:07)
[2017-04-25 04:53] LABS: Basophils # (auto) 0 uL; Basophils % (auto) 0.2 % (0.0-2.0); Eosinophils # (auto) 0 uL; Eosinophils % (auto) 0.1 % (0.0-7.0); Hematocrit 29.4 % (36.0-46.0); Lymphocytes # (auto) 1.1 uL; Lymphocytes % (auto) 8.9 % (10.0-50.0); Mean Corpuscular Hemoglobin 31.1 pg (28.0-32.0); Mean Corpuscular Hgb Conc. 33.9 g/dL (32.0-36.0); Mean Corpuscular Volume 91.7 fL (80.0-100.0); Monocytes % (auto) 8.3 % (0.0-12.0); Neutrophils # (auto) 9.9 uL; Neutrophils % (auto) 82.5 % (37.0-80.0); Platelet Count (auto) 102 10^3/uL (140-450); Red Blood Cells 3.21 10^6/uL (4.0-5.20); Red Cell Distribution Width 13.6 % (11.8-14.3)
[2017-04-25 05:11] LABS: Albumin 4.5 g/dL (3.4-5.0); BUN/Creatinine Ratio 51.5; Calcium 8.7 mg/dL (8.5-10.1); Magnesium 2.7 mg/dL (1.6-2.6); Potassium 3.6 mmol/L (3.5-5.1)
[2017-04-25 05:14] LABS: Bilirubin, Total 1.3 mg/dL (0.2-1.0); Total Protein 6.9 g/dL (6.4-8.2)
[2017-04-25] MEDS: FUROSEMIDE 40 MG TAB PO SCH ×2 (05:19→18:06)
[2017-04-25] MEDS: AZTREONAM 1GM INJ 1 GM in D5W 5% 50 ML IV SCH ×2 (06:02→15:18)
[2017-04-25] MEDS: ACETYLCYSTEINE 10 %(100MG/ML) SOL 4ML NEB SCH ×3 (06:15→22:42)
[2017-04-25] MEDS: IPRATROPIUM BROM 0.5 MG/2.5ML INH SOL NEB SCH ×6 (06:15→22:42)
[2017-04-25] MEDS: INSULIN DETEMIR(LEVEMIR) 1unit/0.01ml Soln (100units/ml) SC SCH (06:23)
[2017-04-25] MEDS: PROPRANOLOL HCL 1 MG/ML VIAL IV PRN ×2 (06:38→18:14)
[2017-04-25] MEDS: Boost Glucose Control 8 Ounces PO SCH ×3 (08:00→17:54)
[2017-04-25] MEDS: SODIUM CHLORIDE 0.9% 1,000 ML IV SCH (08:30)
[2017-04-25] MEDS ORDERED: DEXTROSE (50%) 50ML SYRG IV PRN ×2 (08:30→16:45)
[2017-04-25] MEDS ORDERED: CALCIUM GLUC 4.65meq/50ml D5AE 50 ML IV PRN (09:00)
[2017-04-25] MEDS ORDERED: MAGNESIUM SULFATE 1GM/100ML 100 ML IV PRN (09:00)
[2017-04-25] MEDS: DOCUSATE SOD 100 MG CAP PO SCH ×2 (09:22→21:08)
[2017-04-25] MEDS: METOPROLOL TARTRATE 25 MG TAB PO SCH ×2 (09:23→21:07)
[2017-04-25] MEDS: RAMIPRIL 2.5 MG CAP PO SCH (09:23)
[2017-04-25] MEDS: ASCORBIC ACID 500 MG TAB PO SCH ×2 (09:23→21:07)
[2017-04-25] MEDS: PANTOPRAZOLE 40 MG TAB PO SCH (09:23)
[2017-04-25] MEDS: NITROGLYCERIN 0.4MG/HR TOPICAL PATCH TD SCH (09:24)
[2017-04-25] MEDS: CHLORHEXIDINE 0.12% ORAL rinse 473ML MT SCH ×2 (09:24→21:08)
[2017-04-25] MEDS: POTASSIUM CHL 20 Meq TABLET PO SCH (09:24)
[2017-04-25] MEDS ORDERED: AMIODARONE HCL (50 MG/ ML) 3 ML VIAL IV ONE (09:55)
[2017-04-25] MEDS: CHLORHEXIDINE 4% TOPICAL soln 473ML TOP SCH ×2 (10:00→22:00)
[2017-04-25] MEDS ORDERED: INSULIN DETEMIR(LEVEMIR) 1unit/0.01ml Soln (100units/ml) SC SCH (10:00)
[2017-04-25] MEDS ORDERED: ASPirin 81 mg TAB PO SCH (10:00)
[2017-04-25] MEDS: AMIODARONE HCL 900 MG in DEXTROSE 500 ML IV SCH (10:07)
[2017-04-25] MEDS ORDERED: DILTIAZEM 125mg/125ml BAG KIT 125 ML IV SCH (10:30)
[2017-04-25] MEDS ORDERED: InsuLIN REG 1unit/0.01ml Soln (100units/ml) SC SCH (12:00)
[2017-04-25] MEDS ORDERED: ACCU-CHEK COMFORT CURVE STRIP VI SCH (12:00)
[2017-04-25] MEDS: NICARDIPINE 25MG/250ML BAG KIT 250 ML IV SCH ×3 (13:00→23:00)
[2017-04-25] MEDS: ACETAMINOPHEN 325 MG TAB PO PRN (13:27)
[2017-04-25] MEDS: SODIUM CHLORIDE 0.9% 500 ML IV SCH (14:33)
[2017-04-25] MEDS: hydrALAZINE HCL 20 MG/ML VL IV PRN (15:37)
[2017-04-25] MEDS ORDERED: INSULIN DRIP 100 UNIT/100ML 100 ML IV SCH (16:32)
[2017-04-25 16:39] LABS: BUN/Creatinine Ratio 46.4; Potassium 5.1 mmol/L (3.5-5.1)
[2017-04-25] MEDS: KETOROLAC TROMETH 30 MG/ML 1ML VIAL IV PRN (18:06)
[2017-04-25 19:04] LABS: INR 1.04 (0.9-1.15)
[2017-04-25 20:22] LABS: Magnesium 2.6 mg/dL (1.6-2.6); Potassium 3.7 mmol/L (3.5-5.1)
[2017-04-25] MEDS: ATORVASTATIN 20 MG TAB PO SCH (21:07)
[2017-04-25] MEDS: AMIODARONE HCL 200 MG TAB PO SCH (21:08)
[2017-04-26] VITALS (86 sets, daily range): BP systolic 96–139; BP diastolic 51–79
[2017-04-26] MEDS ORDERED: NITROGLYCERIN 50MG/250ML 250 ML IV ONE (00:08)
[2017-04-26 00:50] LABS: Magnesium 2.5 mg/dL (1.6-2.6); Potassium 4.3 mmol/L (3.5-5.1)
[2017-04-26] MEDS: ACCU-CHEK COMFORT CURVE STRIP VI SCH ×23 (01:00→23:00)
[2017-04-26] MEDS: KETOROLAC TROMETH 30 MG/ML 1ML VIAL IV PRN (02:00)
[2017-04-26] MEDS: IPRATROPIUM BROM 0.5 MG/2.5ML INH SOL NEB SCH ×6 (02:00→21:52)
[2017-04-26] MEDS: NICARDIPINE 25MG/250ML BAG KIT 250 ML IV SCH ×4 (03:10→18:44)
[2017-04-26 05:15] LABS: Albumin 3.7 g/dL (3.4-5.0); BUN/Creatinine Ratio 72.4; Calcium 8.5 mg/dL (8.5-10.1); Magnesium 2.7 mg/dL (1.6-2.6); Total Protein 6.2 g/dL (6.4-8.2)
[2017-04-26 05:37] LABS: Basophils # (auto) 0 uL; Basophils % (auto) 0.3 % (0.0-2.0); Eosinophils # (auto) 0 uL; Eosinophils % (auto) 0.2 % (0.0-7.0); Hematocrit 28.7 % (36.0-46.0); Hemoglobin 9.5 g/dL (12.2-16.2); Lymphocytes # (auto) 1.3 uL; Mean Corpuscular Hemoglobin 30.7 pg (28.0-32.0); Mean Corpuscular Hgb Conc. 33.1 g/dL (32.0-36.0); Mean Corpuscular Volume 92.8 fL (80.0-100.0); Monocytes # (auto) 0.5 uL; Monocytes % (auto) 4.8 % (0.0-12.0); Neutrophils # (auto) 9.1 uL; Neutrophils % (auto) 82.7 % (37.0-80.0); Nucleated Red Blood Cells % 0.1 %; Platelet Count (auto) 117 10^3/uL (140-450); Red Cell Distribution Width 13.8 % (11.8-14.3)
[2017-04-26] MEDS: FUROSEMIDE 40 MG TAB PO SCH ×2 (05:44→17:47)
[2017-04-26] MEDS: ACETYLCYSTEINE 10 %(100MG/ML) SOL 4ML NEB SCH ×3 (06:00→21:52)
[2017-04-26] MEDS: Boost Glucose Control 8 Ounces PO SCH ×3 (08:09→17:47)
[2017-04-26] MEDS: SODIUM CHLORIDE 0.9% 1,000 ML IV SCH (08:30)
[2017-04-26] MEDS: PROPRANOLOL HCL 1 MG/ML VIAL IV PRN ×2 (08:38→18:43)
[2017-04-26 09:57] LABS: Magnesium 2.4 mg/dL (1.6-2.6)
[2017-04-26] MEDS: CHLORHEXIDINE 0.12% ORAL rinse 473ML MT SCH ×2 (10:00→21:35)
[2017-04-26] MEDS: CHLORHEXIDINE 4% TOPICAL soln 473ML TOP SCH ×2 (10:00→21:35)
[2017-04-26] MEDS: DOCUSATE SOD 100 MG CAP PO SCH ×2 (10:30→21:34)
[2017-04-26] MEDS: NITROGLYCERIN 0.4MG/HR TOPICAL PATCH TD SCH (10:30)
[2017-04-26] MEDS: ASCORBIC ACID 500 MG TAB PO SCH ×2 (10:30→21:34)
[2017-04-26] MEDS: PANTOPRAZOLE 40 MG TAB PO SCH (10:30)
[2017-04-26] MEDS: METOPROLOL TARTRATE 25 MG TAB PO SCH ×2 (10:31→21:34)
[2017-04-26] MEDS: RAMIPRIL 2.5 MG CAP PO SCH (10:31)
[2017-04-26] MEDS: POTASSIUM CHL 20 Meq TABLET PO SCH (10:31)
[2017-04-26] MEDS: AMIODARONE HCL 200 MG TAB PO SCH ×2 (10:32→21:34)
[2017-04-26] MEDS: POTASSIUM CHL 20MEQ/100ML 100 ML IV PRN ×2 (11:04→21:39)
[2017-04-26] MEDS: SODIUM CHLORIDE 0.9% 500 ML IV SCH (14:33)
[2017-04-26 14:39] LABS: Magnesium 2.5 mg/dL (1.6-2.6); Potassium 4.6 mmol/L (3.5-5.1)
[2017-04-26 17:07] LABS: BUN/Creatinine Ratio 72.1; Calcium 8.4 mg/dL (8.5-10.1); Potassium 4.3 mmol/L (3.5-5.1)
[2017-04-26] MEDS ORDERED: INSULIN DRIP 100 UNIT/100ML 100 ML IV SCH (17:11)
[2017-04-26] MEDS ORDERED: DEXTROSE (50%) 50ML SYRG IV PRN (17:15)
[2017-04-26 20:22] LABS: Potassium 3.9 mmol/L (3.5-5.1)
[2017-04-26 20:25] LABS: Magnesium 2.1 mg/dL (1.6-2.6)
[2017-04-26] MEDS: ATORVASTATIN 20 MG TAB PO SCH (21:34)
[2017-04-27] VITALS (42 sets, daily range): BP systolic 93–148; BP diastolic 38–76
[2017-04-27 00:59] LABS: Potassium 4.8 mmol/L (3.5-5.1)
[2017-04-27] MEDS: ACCU-CHEK COMFORT CURVE STRIP VI SCH ×19 (01:00→20:00)
[2017-04-27 01:01] LABS: Magnesium 2.4 mg/dL (1.6-2.6)
[2017-04-27] MEDS: hydrALAZINE HCL 20 MG/ML VL IV PRN (01:46)
[2017-04-27] MEDS: IPRATROPIUM BROM 0.5 MG/2.5ML INH SOL NEB SCH ×6 (02:28→22:19)
[2017-04-27 04:22] LABS: Basophils # (auto) 0 uL; Basophils % (auto) 0.3 % (0.0-2.0); Eosinophils # (auto) 0.3 uL; Eosinophils % (auto) 2.7 % (0.0-7.0); Hematocrit 28.8 % (36.0-46.0); Hemoglobin 9.8 g/dL (12.2-16.2); Lymphocytes # (auto) 1.2 uL; Lymphocytes % (auto) 10.7 % (10.0-50.0); Mean Corpuscular Hemoglobin 31.2 pg (28.0-32.0); Mean Corpuscular Volume 91.6 fL (80.0-100.0); Monocytes # (auto) 0.8 uL; Monocytes % (auto) 6.8 % (0.0-12.0); Neutrophils # (auto) 8.9 uL; Neutrophils % (auto) 79.5 % (37.0-80.0); Platelet Count (auto) 105 10^3/uL (140-450); Red Blood Cells 3.14 10^6/uL (4.0-5.20); Red Cell Distribution Width 12.9 % (11.8-14.3); White Blood Cell 11.2 10^3/uL (4.4-10.8)
[2017-04-27 04:46] LABS: Albumin 3.1 g/dL (3.4-5.0); BUN/Creatinine Ratio 72.9; Calcium 8.5 mg/dL (8.5-10.1); Magnesium 2.2 mg/dL (1.6-2.6); Potassium 3.9 mmol/L (3.5-5.1)
[2017-04-27 04:48] LABS: Bilirubin, Total 0.9 mg/dL (0.2-1.0)
[2017-04-27] MEDS: NICARDIPINE 25MG/250ML BAG KIT 250 ML IV SCH ×5 (05:00→20:00)
[2017-04-27] MEDS: FUROSEMIDE 40 MG TAB PO SCH ×2 (05:25→18:34)
[2017-04-27] MEDS: POTASSIUM CHL 20MEQ/100ML 100 ML IV PRN (05:26)
[2017-04-27] MEDS: PROPRANOLOL HCL 1 MG/ML VIAL IV PRN (05:48)
[2017-04-27] MEDS: ACETYLCYSTEINE 10 %(100MG/ML) SOL 4ML NEB SCH ×3 (07:06→22:19)
[2017-04-27] MEDS: SODIUM CHLORIDE 0.9% 1,000 ML IV SCH (08:39)
[2017-04-27] MEDS: Boost Glucose Control 8 Ounces PO SCH ×3 (08:39→19:30)
[2017-04-27 09:36] LABS: Magnesium 2.3 mg/dL (1.6-2.6); Potassium 4.1 mmol/L (3.5-5.1)
[2017-04-27] MEDS: NITROGLYCERIN 0.4MG/HR TOPICAL PATCH TD SCH (09:58)
[2017-04-27] MEDS: PANTOPRAZOLE 40 MG TAB PO SCH (09:59)
[2017-04-27] MEDS: ASCORBIC ACID 500 MG TAB PO SCH ×2 (09:59→20:50)
[2017-04-27] MEDS: RAMIPRIL 2.5 MG CAP PO SCH (09:59)
[2017-04-27] MEDS: METOPROLOL TARTRATE 25 MG TAB PO SCH (09:59)
[2017-04-27] MEDS: AMIODARONE HCL 200 MG TAB PO SCH ×2 (09:59→20:50)
[2017-04-27] MEDS: CHLORHEXIDINE 0.12% ORAL rinse 473ML MT SCH ×2 (10:00→20:39)
[2017-04-27] MEDS: DOCUSATE SOD 100 MG CAP PO SCH ×2 (10:00→20:39)
[2017-04-27] MEDS: POTASSIUM CHL 20 Meq TABLET PO SCH (10:00)
[2017-04-27] MEDS ORDERED: ASPirin 81 mg TAB PO SCH (10:00)
[2017-04-27] MEDS: CHLORHEXIDINE 4% TOPICAL soln 473ML TOP SCH ×2 (10:00→20:50)
[2017-04-27] MEDS: ACETAMINOPHEN 325 MG TAB PO PRN (11:30)
[2017-04-27] MEDS ORDERED: METOPROLOL TARTRATE 25 MG TAB PO ONE (12:00)
[2017-04-27] MEDS ORDERED: glipiZIDE 5 MG TAB PO ONE (12:45)
[2017-04-27] MEDS ORDERED: metFORMIN HYDROCHLORIDE 500 MG TAB PO ONE (12:45)
[2017-04-27] MEDS: SODIUM CHLORIDE 0.9% 500 ML IV SCH (14:33)
[2017-04-27] MEDS: metFORMIN HYDROCHLORIDE 500 MG TAB PO SCH (18:34)
[2017-04-27] MEDS: InsuLIN REG 1unit/0.01ml Soln (100units/ml) SC SCH (20:00)
[2017-04-27] MEDS: ATORVASTATIN 20 MG TAB PO SCH (20:50)
[2017-04-27] MEDS: METOPROLOL TARTRATE 50 MG TAB PO SCH (20:50)
[2017-04-27] MEDS: INSULIN DETEMIR(LEVEMIR) 1unit/0.01ml Soln (100units/ml) SC SCH (22:00)
[2017-04-28] VITALS (23 sets, daily range): BP systolic 98–133; BP diastolic 46–69
[2017-04-28] MEDS: InsuLIN REG 1unit/0.01ml Soln (100units/ml) SC SCH ×6 (00:13→20:56)
[2017-04-28] MEDS: ACCU-CHEK COMFORT CURVE STRIP VI SCH ×6 (00:13→20:00)
[2017-04-28] MEDS: NICARDIPINE 25MG/250ML BAG KIT 250 ML IV SCH ×5 (01:00→21:00)
[2017-04-28] MEDS: IPRATROPIUM BROM 0.5 MG/2.5ML INH SOL NEB SCH ×6 (02:15→22:11)
[2017-04-28 04:21] LABS: Basophils # (auto) 0 uL; Basophils % (auto) 0.2 % (0.0-2.0); Eosinophils # (auto) 0.3 uL; Eosinophils % (auto) 3.4 % (0.0-7.0); Hematocrit 28.9 % (36.0-46.0); Hemoglobin 10.1 g/dL (12.2-16.2); Lymphocytes # (auto) 1.2 uL; Mean Corpuscular Hemoglobin 31.5 pg (28.0-32.0); Mean Corpuscular Hgb Conc. 35.1 g/dL (32.0-36.0); Mean Corpuscular Volume 89.8 fL (80.0-100.0); Monocytes # (auto) 0.9 uL; Monocytes % (auto) 10.1 % (0.0-12.0); Neutrophils # (auto) 6.7 uL; Neutrophils % (auto) 73.3 % (37.0-80.0); Platelet Count (auto) 188 10^3/uL (140-450); Red Blood Cells 3.22 10^6/uL (4.0-5.20); White Blood Cell 9.1 10^3/uL (4.4-10.8)
[2017-04-28 04:55] LABS: Albumin 3.2 g/dL (3.4-5.0); BUN/Creatinine Ratio 53.4; Calcium 8.6 mg/dL (8.5-10.1); Magnesium 2.4 mg/dL (1.6-2.6); Potassium 4.2 mmol/L (3.5-5.1); Total Protein 6.4 g/dL (6.4-8.2)
[2017-04-28] MEDS: FUROSEMIDE 40 MG TAB PO SCH (06:00)
[2017-04-28] MEDS: metFORMIN HYDROCHLORIDE 500 MG TAB PO SCH (06:59)
[2017-04-28] MEDS ORDERED: glipiZIDE 5 MG TAB PO SCH (07:00)
[2017-04-28] MEDS: ACETYLCYSTEINE 10 %(100MG/ML) SOL 4ML NEB SCH ×3 (07:13→22:11)
[2017-04-28] MEDS: Boost Glucose Control 8 Ounces PO SCH ×3 (08:11→18:40)
[2017-04-28] MEDS: SODIUM CHLORIDE 0.9% 1,000 ML IV SCH (08:30)
[2017-04-28] MEDS: PROPRANOLOL HCL 1 MG/ML VIAL IV PRN (08:42)
[2017-04-28] MEDS: CHLORHEXIDINE 4% TOPICAL soln 473ML TOP SCH ×2 (10:00→22:16)
[2017-04-28] MEDS: RAMIPRIL 2.5 MG CAP PO SCH (10:16)
[2017-04-28] MEDS: NITROGLYCERIN 0.4MG/HR TOPICAL PATCH TD SCH (10:16)
[2017-04-28] MEDS: METOPROLOL TARTRATE 50 MG TAB PO SCH ×2 (10:17→22:15)
[2017-04-28] MEDS: AMIODARONE HCL 200 MG TAB PO SCH ×2 (10:17→22:15)
[2017-04-28] MEDS: PANTOPRAZOLE 40 MG TAB PO SCH (10:17)
[2017-04-28] MEDS: POTASSIUM CHL 20 Meq TABLET PO SCH (10:17)
[2017-04-28] MEDS: ASCORBIC ACID 500 MG TAB PO SCH ×2 (10:17→22:15)
[2017-04-28] MEDS: DOCUSATE SOD 100 MG CAP PO SCH ×2 (10:18→22:14)
[2017-04-28] MEDS: CHLORHEXIDINE 0.12% ORAL rinse 473ML MT SCH ×2 (10:31→22:00)
[2017-04-28] MEDS: INSULIN DETEMIR(LEVEMIR) 1unit/0.01ml Soln (100units/ml) SC SCH (10:31)
[2017-04-28] MEDS: ACETAMINOPHEN 325 MG TAB PO PRN (14:26)
[2017-04-28] MEDS: SODIUM CHLORIDE 0.9% 500 ML IV SCH (14:33)
[2017-04-28] MEDS ORDERED: POTASSIUM CHL 20 Meq TABLET PO PRN (14:45)
[2017-04-28] MEDS: metFORMIN HYDROCHLORIDE 850 MG TAB PO SCH (19:27)
[2017-04-28] MEDS ORDERED: INSULIN DETEMIR(LEVEMIR) 1unit/0.01ml Soln (100units/ml) SC SCH (22:00)
[2017-04-28] MEDS: ATORVASTATIN 20 MG TAB PO SCH (22:14)
[2017-04-29] VITALS (23 sets, daily range): BP systolic 90–125; BP diastolic 46–69
[2017-04-29] MEDS: IPRATROPIUM BROM 0.5 MG/2.5ML INH SOL NEB SCH ×6 (01:41→22:11)
[2017-04-29] MEDS: NICARDIPINE 25MG/250ML BAG KIT 250 ML IV SCH ×5 (02:00→21:15)
[2017-04-29 03:46] LABS: Basophils # (auto) 0 uL; Basophils % (auto) 0.2 % (0.0-2.0); Eosinophils # (auto) 0.4 uL; Eosinophils % (auto) 4.1 % (0.0-7.0); Hematocrit 27.9 % (36.0-46.0); Hemoglobin 9.7 g/dL (12.2-16.2); Lymphocytes # (auto) 1.5 uL; Lymphocytes % (auto) 15.4 % (10.0-50.0); Mean Corpuscular Hemoglobin 31.1 pg (28.0-32.0); Mean Corpuscular Hgb Conc. 34.6 g/dL (32.0-36.0); Mean Corpuscular Volume 89.8 fL (80.0-100.0); Monocytes % (auto) 10.8 % (0.0-12.0); Neutrophils # (auto) 6.7 uL; Neutrophils % (auto) 69.5 % (37.0-80.0); Platelet Count (auto) 204 10^3/uL (140-450); Red Blood Cells 3.11 10^6/uL (4.0-5.20); White Blood Cell 9.6 10^3/uL (4.4-10.8)
[2017-04-29] MEDS: ACCU-CHEK COMFORT CURVE STRIP VI SCH ×6 (04:00→20:00)
[2017-04-29] MEDS: InsuLIN REG 1unit/0.01ml Soln (100units/ml) SC SCH ×6 (04:00→20:00)
[2017-04-29 04:06] LABS: Albumin 2.9 g/dL (3.4-5.0); Calcium 9.2 mg/dL (8.5-10.1); Magnesium 2.3 mg/dL (1.6-2.6); Total Protein 6.2 g/dL (6.4-8.2)
[2017-04-29] MEDS: ACETYLCYSTEINE 10 %(100MG/ML) SOL 4ML NEB SCH ×3 (06:12→22:11)
[2017-04-29] MEDS: INSULIN DETEMIR(LEVEMIR) 1unit/0.01ml Soln (100units/ml) SC SCH (07:00)
[2017-04-29] MEDS: Boost Glucose Control 8 Ounces PO SCH ×3 (08:28→18:00)
[2017-04-29] MEDS: SODIUM CHLORIDE 0.9% 1,000 ML IV SCH (08:30)
[2017-04-29] MEDS: CHLORHEXIDINE 0.12% ORAL rinse 473ML MT SCH ×2 (10:02→21:16)
[2017-04-29] MEDS: DOCUSATE SOD 100 MG CAP PO SCH ×2 (10:04→21:16)
[2017-04-29] MEDS: RAMIPRIL 2.5 MG CAP PO SCH (10:04)
[2017-04-29] MEDS: AMIODARONE HCL 200 MG TAB PO SCH ×2 (10:05→21:17)
[2017-04-29] MEDS: POTASSIUM CHL 20 Meq TABLET PO SCH (10:05)
[2017-04-29] MEDS: METOPROLOL TARTRATE 50 MG TAB PO SCH ×2 (10:06→21:18)
[2017-04-29] MEDS: FUROSEMIDE 40 MG TAB PO SCH (10:06)
[2017-04-29] MEDS: ASCORBIC ACID 500 MG TAB PO SCH (10:07)
[2017-04-29] MEDS: PANTOPRAZOLE 40 MG TAB PO SCH (10:07)
[2017-04-29] MEDS: NITROGLYCERIN 0.4MG/HR TOPICAL PATCH TD SCH (10:07)
[2017-04-29] MEDS: CHLORHEXIDINE 4% TOPICAL soln 473ML TOP SCH ×2 (10:08→22:00)
[2017-04-29] MEDS: metFORMIN HYDROCHLORIDE 850 MG TAB PO SCH ×2 (13:09→19:12)
[2017-04-29] MEDS: glipiZIDE 5 MG TAB PO SCH (13:09)
[2017-04-29] MEDS: SODIUM CHLORIDE 0.9% 500 ML IV SCH (14:33)
[2017-04-29] MEDS: ACETAMINOPHEN 325 MG TAB PO PRN (16:26)
[2017-04-29] MEDS: ATORVASTATIN 20 MG TAB PO SCH (21:18)
[2017-04-29] MEDS ORDERED: INSULIN DETEMIR(LEVEMIR) 1unit/0.01ml Soln (100units/ml) SC SCH (22:00)
[2017-04-30] VITALS (21 sets, daily range): BP systolic 104–148; BP diastolic 52–96
[2017-04-30] MEDS: IPRATROPIUM BROM 0.5 MG/2.5ML INH SOL NEB SCH ×6 (02:21→22:23)
[2017-04-30] MEDS: InsuLIN REG 1unit/0.01ml Soln (100units/ml) SC SCH ×7 (04:00→23:44)
[2017-04-30 04:27] LABS: BUN/Creatinine Ratio 47.6; Calcium 9.1 mg/dL (8.5-10.1); Magnesium 2.1 mg/dL (1.6-2.6); Potassium 4.3 mmol/L (3.5-5.1)
[2017-04-30 04:30] LABS: Bilirubin, Total 0.9 mg/dL (0.2-1.0); Total Protein 6.5 g/dL (6.4-8.2)
[2017-04-30] MEDS: ACETYLCYSTEINE 10 %(100MG/ML) SOL 4ML NEB SCH ×3 (06:59→22:23)
[2017-04-30] MEDS: glipiZIDE 5 MG TAB PO SCH (07:00)
[2017-04-30] MEDS: metFORMIN HYDROCHLORIDE 850 MG TAB PO SCH ×2 (07:00→18:00)
[2017-04-30] MEDS: ACCU-CHEK COMFORT CURVE STRIP VI SCH ×6 (08:00→23:41)
[2017-04-30] MEDS: INSULIN DETEMIR(LEVEMIR) 1unit/0.01ml Soln (100units/ml) SC SCH (08:00)
[2017-04-30] MEDS: NICARDIPINE 25MG/250ML BAG KIT 250 ML IV SCH ×5 (08:00→23:00)
[2017-04-30] MEDS: Boost Glucose Control 8 Ounces PO SCH ×3 (08:00→18:00)
[2017-04-30] MEDS: SODIUM CHLORIDE 0.9% 1,000 ML IV SCH (08:32)
[2017-04-30] MEDS: CHLORHEXIDINE 0.12% ORAL rinse 473ML MT SCH ×2 (08:32→21:41)
[2017-04-30] MEDS: DOCUSATE SOD 100 MG CAP PO SCH ×2 (08:32→21:42)
[2017-04-30] MEDS: METOPROLOL TARTRATE 50 MG TAB PO SCH ×2 (08:38→21:41)
[2017-04-30] MEDS: NITROGLYCERIN 0.4MG/HR TOPICAL PATCH TD SCH (10:00)
[2017-04-30] MEDS: AMIODARONE HCL 200 MG TAB PO SCH ×2 (10:00→21:41)
[2017-04-30] MEDS: POTASSIUM CHL 20 Meq TABLET PO SCH (10:00)
[2017-04-30] MEDS: RAMIPRIL 2.5 MG CAP PO SCH (10:00)
[2017-04-30] MEDS: FUROSEMIDE 40 MG TAB PO SCH (10:00)
[2017-04-30] MEDS: PANTOPRAZOLE 40 MG TAB PO SCH (10:00)
[2017-04-30] MEDS ORDERED: IOHEXOL 350 MG/ML 100ML IJ ONE (10:16)
[2017-04-30] MEDS: CHLORHEXIDINE 4% TOPICAL soln 473ML TOP SCH ×2 (12:45→21:42)
[2017-04-30] MEDS: SODIUM CHLORIDE 0.9% 500 ML IV SCH (14:33)
[2017-04-30] MEDS ORDERED: InsuLIN REG 1unit/0.01ml Soln (100units/ml) IV ONE (21:30)
[2017-04-30] MEDS: ATORVASTATIN 20 MG TAB PO SCH (21:41)
[2017-04-30] MEDS ORDERED: INSULIN DETEMIR(LEVEMIR) 1unit/0.01ml Soln (100units/ml) SC SCH (22:00)
[2017-04-30] MEDS: PROPRANOLOL HCL 1 MG/ML VIAL IV PRN (23:44)
[2017-05-01] VITALS (25 sets, daily range): BP systolic 91–147; BP diastolic 39–92
[2017-05-01] MEDS: ACETAMINOPHEN 325 MG TAB PO PRN ×2 (00:15→10:54)
[2017-05-01] MEDS: IPRATROPIUM BROM 0.5 MG/2.5ML INH SOL NEB SCH ×6 (02:13→22:23)
[2017-05-01] MEDS: ACCU-CHEK COMFORT CURVE STRIP VI SCH ×6 (03:34→23:52)
[2017-05-01] MEDS: InsuLIN REG 1unit/0.01ml Soln (100units/ml) SC SCH ×6 (03:35→23:54)
[2017-05-01 03:59] LABS: BUN/Creatinine Ratio 31.4; Calcium 9.6 mg/dL (8.5-10.1); Potassium 3.8 mmol/L (3.5-5.1)
[2017-05-01] MEDS: NICARDIPINE 25MG/250ML BAG KIT 250 ML IV SCH ×4 (04:00→18:06)
[2017-05-01] MEDS: metFORMIN HYDROCHLORIDE 850 MG TAB PO SCH ×2 (07:00→18:00)
[2017-05-01] MEDS: glipiZIDE 5 MG TAB PO SCH (07:00)
[2017-05-01] MEDS: ACETYLCYSTEINE 10 %(100MG/ML) SOL 4ML NEB SCH ×3 (07:17→22:23)
[2017-05-01] MEDS: Boost Glucose Control 8 Ounces PO SCH ×3 (08:00→18:05)
[2017-05-01] MEDS: SODIUM CHLORIDE 0.9% 1,000 ML IV SCH (08:30)
[2017-05-01] MEDS: PANTOPRAZOLE 40 MG TAB PO SCH (10:45)
[2017-05-01] MEDS: FUROSEMIDE 40 MG TAB PO SCH (10:45)
[2017-05-01] MEDS: DOCUSATE SOD 100 MG CAP PO SCH ×2 (10:45→22:00)
[2017-05-01] MEDS: AMIODARONE HCL 200 MG TAB PO SCH ×2 (10:46→22:13)
[2017-05-01] MEDS: METOPROLOL TARTRATE 50 MG TAB PO SCH ×2 (10:46→22:12)
[2017-05-01] MEDS: POTASSIUM CHL 20 Meq TABLET PO SCH (10:47)
[2017-05-01] MEDS: NITROGLYCERIN 0.4MG/HR TOPICAL PATCH TD SCH (10:47)
[2017-05-01] MEDS: CHLORHEXIDINE 0.12% ORAL rinse 473ML MT SCH ×2 (10:49→22:00)
[2017-05-01] MEDS: CHLORHEXIDINE 4% TOPICAL soln 473ML TOP SCH ×2 (10:49→22:00)
[2017-05-01] MEDS: RAMIPRIL 2.5 MG CAP PO SCH (10:51)
[2017-05-01] MEDS: SODIUM CHLORIDE 0.9% 500 ML IV SCH (14:33)
[2017-05-01] MEDS: HYDROcodone-ACET 5/325MG TAB PO PRN ×2 (16:17→22:20)
[2017-05-01] MEDS: ATORVASTATIN 20 MG TAB PO SCH (22:12)
[2017-05-01] MEDS: INSULIN LANTUS (GLARGINE) 1 /0.01ml (100units/ml) SC SCH (22:19)
[2017-05-02] VITALS (65 sets, daily range): BP systolic 94–187; BP diastolic 47–79
[2017-05-02] MEDS: IPRATROPIUM BROM 0.5 MG/2.5ML INH SOL NEB SCH ×6 (02:11→22:32)
[2017-05-02] MEDS: InsuLIN REG 1unit/0.01ml Soln (100units/ml) SC SCH ×5 (04:00→20:19)
[2017-05-02 04:07] LABS: Basophils # (auto) 0.1 uL; Basophils % (auto) 0.6 % (0.0-2.0); Eosinophils # (auto) 0.6 uL; Eosinophils % (auto) 6.8 % (0.0-7.0); Hemoglobin 9.9 g/dL (12.2-16.2); Lymphocytes # (auto) 1.3 uL; Lymphocytes % (auto) 14.1 % (10.0-50.0); Mean Corpuscular Hgb Conc. 34.4 g/dL (32.0-36.0); Mean Corpuscular Volume 90.1 fL (80.0-100.0); Monocytes # (auto) 0.9 uL; Monocytes % (auto) 9.6 % (0.0-12.0); Neutrophils # (auto) 6.3 uL; Neutrophils % (auto) 68.9 % (37.0-80.0); Platelet Count (auto) 321 10^3/uL (140-450); Red Blood Cells 3.21 10^6/uL (4.0-5.20); Red Cell Distribution Width 13.2 % (11.8-14.3); White Blood Cell 9.1 10^3/uL (4.4-10.8)
[2017-05-02] MEDS: ACCU-CHEK COMFORT CURVE STRIP VI SCH ×5 (04:07→20:17)
[2017-05-02] MEDS: NICARDIPINE 25MG/250ML BAG KIT 250 ML IV SCH ×5 (04:08→20:00)
[2017-05-02 04:25] LABS: Potassium 4.8 mmol/L (3.5-5.1)
[2017-05-02 04:29] LABS: BUN/Creatinine Ratio 44.2; Calcium 9.6 mg/dL (8.5-10.1)
[2017-05-02] MEDS: HYDROcodone-ACET 5/325MG TAB PO PRN (06:21)
[2017-05-02] MEDS: metFORMIN HYDROCHLORIDE 850 MG TAB PO SCH ×2 (06:21→19:01)
[2017-05-02] MEDS: glipiZIDE 5 MG TAB PO SCH (06:21)
[2017-05-02] MEDS: INSULIN LANTUS (GLARGINE) 1 /0.01ml (100units/ml) SC SCH ×2 (06:23→21:30)
[2017-05-02] MEDS: ACETYLCYSTEINE 10 %(100MG/ML) SOL 4ML NEB SCH ×3 (07:11→22:32)
[2017-05-02] MEDS: SODIUM CHLORIDE 0.9% 1,000 ML IV SCH ×2 (08:30→13:43)
[2017-05-02] MEDS: Boost Glucose Control 8 Ounces PO SCH ×3 (08:50→18:00)
[2017-05-02] MEDS: CHLORHEXIDINE 0.12% ORAL rinse 473ML MT SCH ×2 (08:51→21:26)
[2017-05-02] MEDS: RAMIPRIL 2.5 MG CAP PO SCH ×2 (10:00→10:32)
[2017-05-02] MEDS: METOPROLOL TARTRATE 50 MG TAB PO SCH ×3 (10:00→21:27)
[2017-05-02] MEDS: AMIODARONE HCL 200 MG TAB PO SCH ×3 (10:00→21:27)
[2017-05-02] MEDS: PANTOPRAZOLE 40 MG TAB PO SCH ×2 (10:00→10:33)
[2017-05-02] MEDS: POTASSIUM CHL 20 Meq TABLET PO SCH ×2 (10:00→10:32)
[2017-05-02] MEDS: FUROSEMIDE 40 MG TAB PO SCH ×2 (10:00→10:33)
[2017-05-02] MEDS: DOCUSATE SOD 100 MG CAP PO SCH ×2 (10:32→21:26)
[2017-05-02] MEDS: NITROGLYCERIN 0.4MG/HR TOPICAL PATCH TD SCH (10:33)
[2017-05-02] MEDS: CHLORHEXIDINE 4% TOPICAL soln 473ML TOP SCH ×2 (10:34→21:30)
[2017-05-02] MEDS ORDERED: MIDAZOLAM HCL 1MG/1ML-2 ML VIAL ONE (10:59)
[2017-05-02] MEDS ORDERED: MIDAZOLAM HCL 5 MG/ML-1ML VIAL IV ONE (11:03)
[2017-05-02] MEDS ORDERED: SUCCINYLCHOLINE CHLORIDE 20 MG/ML 10ML VIAL IV ONE ×2 (11:04)
[2017-05-02] MEDS: MIDAZOLAM DRIP 50 mg/50mL 50 ML IV SCH (11:10)
[2017-05-02] MEDS ORDERED: MIDAZOLAM DRIP 50 mg/50mL 50 ML IV ONE ×2 (11:15→11:18)
[2017-05-02] MEDS ORDERED: NITROGLYCERIN 50MG/250ML 250 ML IV ONE (11:38)
[2017-05-02] MEDS: SODIUM CHLORIDE 0.9% 500 ML IV SCH (13:45)
[2017-05-02] MEDS: NITROGLYCERIN 50MG/250ML 250 ML IV SCH (13:46)
[2017-05-02] MEDS: cloNIDine 0.2 mg/24hr 7DAY PATCH TD SCH (13:48)
[2017-05-02] MEDS: ACETAMINOPHEN 325 MG TAB PO PRN (20:18)
[2017-05-02] MEDS: ATORVASTATIN 20 MG TAB PO SCH (21:27)
[2017-05-03] VITALS (86 sets, daily range): BP systolic 84–159; BP diastolic 40–76
[2017-05-03] MEDS: NICARDIPINE 25MG/250ML BAG KIT 250 ML IV SCH ×5 (01:00→21:00)
[2017-05-03] MEDS: MIDAZOLAM DRIP 50 mg/50mL 50 ML IV SCH (01:47)
[2017-05-03] MEDS: IPRATROPIUM BROM 0.5 MG/2.5ML INH SOL NEB SCH ×6 (02:13→22:20)
[2017-05-03] MEDS: ACCU-CHEK COMFORT CURVE STRIP VI SCH ×7 (03:50→23:37)
[2017-05-03] MEDS: InsuLIN REG 1unit/0.01ml Soln (100units/ml) SC SCH ×7 (03:58→23:37)
[2017-05-03] MEDS: HYDROcodone-ACET 5/325MG TAB PO PRN ×2 (04:21→21:03)
[2017-05-03 05:58] LABS: Basophils # (auto) 0 uL; Basophils % (auto) 0.3 % (0.0-2.0); Eosinophils # (auto) 0.4 uL; Hematocrit 29.3 % (36.0-46.0); Hemoglobin 10.1 g/dL (12.2-16.2); Lymphocytes # (auto) 1.2 uL; Lymphocytes % (auto) 12.6 % (10.0-50.0); Mean Corpuscular Hemoglobin 31.2 pg (28.0-32.0); Mean Corpuscular Hgb Conc. 34.5 g/dL (32.0-36.0); Mean Corpuscular Volume 90.3 fL (80.0-100.0); Monocytes # (auto) 0.7 uL; Monocytes % (auto) 6.9 % (0.0-12.0); Neutrophils # (auto) 7.3 uL; Neutrophils % (auto) 76.2 % (37.0-80.0); Platelet Count (auto) 316 10^3/uL (140-450); Red Blood Cells 3.24 10^6/uL (4.0-5.20); Red Cell Distribution Width 13.2 % (11.8-14.3); White Blood Cell 9.5 10^3/uL (4.4-10.8)
[2017-05-03] MEDS: INSULIN LANTUS (GLARGINE) 1 /0.01ml (100units/ml) SC SCH ×2 (06:28→21:34)
[2017-05-03] MEDS: glipiZIDE 5 MG TAB PO SCH (06:28)
[2017-05-03] MEDS: metFORMIN HYDROCHLORIDE 850 MG TAB PO SCH ×2 (06:28→17:09)
[2017-05-03] MEDS: ACETYLCYSTEINE 10 %(100MG/ML) SOL 4ML NEB SCH ×3 (06:33→22:20)
[2017-05-03 06:47] LABS: BUN/Creatinine Ratio 32.3; Calcium 8.8 mg/dL (8.5-10.1); Magnesium 2.5 mg/dL (1.6-2.6)
[2017-05-03] MEDS: Boost Glucose Control 8 Ounces PO SCH ×3 (08:00→17:07)
[2017-05-03] MEDS: SODIUM CHLORIDE 0.9% 1,000 ML IV SCH ×2 (08:00→08:30)
[2017-05-03] MEDS: POTASSIUM CHL 20 Meq TABLET PO SCH (10:00)
[2017-05-03] MEDS: NITROGLYCERIN 0.4MG/HR TOPICAL PATCH TD SCH (10:00)
[2017-05-03] MEDS: DOCUSATE SOD 100 MG CAP PO SCH ×2 (10:00→21:30)
[2017-05-03] MEDS: RAMIPRIL 2.5 MG CAP PO SCH (10:40)
[2017-05-03] MEDS: FUROSEMIDE 40 MG TAB PO SCH (10:40)
[2017-05-03] MEDS: METOPROLOL TARTRATE 50 MG TAB PO SCH ×2 (10:40→21:30)
[2017-05-03] MEDS: AMIODARONE HCL 200 MG TAB PO SCH ×2 (10:40→21:30)
[2017-05-03] MEDS: NITROGLYCERIN 50MG/250ML 250 ML IV SCH (12:00)
[2017-05-03] MEDS: CHLORHEXIDINE 0.12% ORAL rinse 473ML MT SCH ×2 (13:34→21:31)
[2017-05-03] MEDS: PANTOPRAZOLE 40 MG TAB PO SCH (13:36)
[2017-05-03] MEDS: CHLORHEXIDINE 4% TOPICAL soln 473ML TOP SCH ×2 (13:36→21:31)
[2017-05-03] MEDS: SODIUM CHLORIDE 0.9% 500 ML IV SCH (14:33)
[2017-05-03] MEDS ORDERED: MANNITOL 20% SOLN 100 gm/500ml 400 ML IV ONE (19:45)
[2017-05-03] MEDS: ATORVASTATIN 20 MG TAB PO SCH (21:29)
[2017-05-04] VITALS (107 sets, daily range): BP systolic 107–164; BP diastolic 46–83
[2017-05-04] MEDS: NICARDIPINE 25MG/250ML BAG KIT 250 ML IV SCH ×5 (02:00→22:00)
[2017-05-04] MEDS: IPRATROPIUM BROM 0.5 MG/2.5ML INH SOL NEB SCH ×6 (02:27→22:15)
[2017-05-04] MEDS: MIDAZOLAM DRIP 50 mg/50mL 50 ML IV SCH (02:36)
[2017-05-04] MEDS: hydrALAZINE HCL 20 MG/ML VL IV PRN ×2 (02:37→11:50)
[2017-05-04] MEDS: InsuLIN REG 1unit/0.01ml Soln (100units/ml) SC SCH ×5 (03:34→20:15)
[2017-05-04] MEDS: ACCU-CHEK COMFORT CURVE STRIP VI SCH ×5 (03:34→20:12)
[2017-05-04 03:58] LABS: Basophils # (auto) 0 uL; Basophils % (auto) 0.4 % (0.0-2.0); Eosinophils # (auto) 0.4 uL; Eosinophils % (auto) 3.6 % (0.0-7.0); Hematocrit 30.7 % (36.0-46.0); Hemoglobin 10.5 g/dL (12.2-16.2); Lymphocytes # (auto) 1.3 uL; Lymphocytes % (auto) 10.4 % (10.0-50.0); Mean Corpuscular Hemoglobin 30.7 pg (28.0-32.0); Mean Corpuscular Hgb Conc. 34.1 g/dL (32.0-36.0); Mean Corpuscular Volume 89.9 fL (80.0-100.0); Monocytes # (auto) 0.8 uL; Monocytes % (auto) 6.4 % (0.0-12.0); Neutrophils # (auto) 9.6 uL; Neutrophils % (auto) 79.2 % (37.0-80.0); Platelet Count (auto) 342 10^3/uL (140-450); Red Blood Cells 3.41 10^6/uL (4.0-5.20); Red Cell Distribution Width 13.4 % (11.8-14.3); White Blood Cell 12.1 10^3/uL (4.4-10.8)
[2017-05-04] MEDS: SODIUM CHLORIDE 0.9% 1,000 ML IV SCH ×2 (04:00→09:01)
[2017-05-04 04:25] LABS: BUN/Creatinine Ratio 21.3; Calcium 8.7 mg/dL (8.5-10.1); Potassium 3.8 mmol/L (3.5-5.1)
[2017-05-04] MEDS: HYDROcodone-ACET 5/325MG TAB PO PRN ×2 (06:05→15:36)
[2017-05-04] MEDS: metFORMIN HYDROCHLORIDE 850 MG TAB PO SCH ×2 (06:08→18:00)
[2017-05-04] MEDS: glipiZIDE 5 MG TAB PO SCH (06:08)
[2017-05-04] MEDS: INSULIN LANTUS (GLARGINE) 1 /0.01ml (100units/ml) SC SCH ×2 (06:08→22:17)
[2017-05-04] MEDS: ACETYLCYSTEINE 10 %(100MG/ML) SOL 4ML NEB SCH ×3 (06:48→22:15)
[2017-05-04] MEDS: Boost Glucose Control 8 Ounces PO SCH ×3 (08:00→18:00)
[2017-05-04] MEDS: FUROSEMIDE 40 MG TAB PO SCH (09:59)
[2017-05-04] MEDS: PANTOPRAZOLE 40 MG TAB PO SCH (09:59)
[2017-05-04] MEDS: POTASSIUM CHL 20 Meq TABLET PO SCH (09:59)
[2017-05-04] MEDS: NITROGLYCERIN 0.4MG/HR TOPICAL PATCH TD SCH (10:00)
[2017-05-04] MEDS: DOCUSATE SOD 100 MG CAP PO SCH ×2 (10:00→22:00)
[2017-05-04] MEDS: METOPROLOL TARTRATE 50 MG TAB PO SCH ×2 (10:00→22:14)
[2017-05-04] MEDS: AMIODARONE HCL 200 MG TAB PO SCH ×2 (10:00→22:13)
[2017-05-04] MEDS: RAMIPRIL 2.5 MG CAP PO SCH (10:01)
[2017-05-04] MEDS: CHLORHEXIDINE 0.12% ORAL rinse 473ML MT SCH ×2 (10:01→22:11)
[2017-05-04] MEDS: CHLORHEXIDINE 4% TOPICAL soln 473ML TOP SCH ×2 (10:02→22:36)
[2017-05-04] MEDS: NITROGLYCERIN 50MG/250ML 250 ML IV SCH (11:20)
[2017-05-04] MEDS: SODIUM CHLORIDE 0.9% 500 ML IV SCH (14:33)
[2017-05-04] MEDS: CLOPIDOGREL BISULFATE 75 MG TAB PO SCH (15:36)
[2017-05-04] MEDS ORDERED: AMIODARONE HCL 900 MG/500ML D5W KIT IV ONE (20:25)
[2017-05-04] MEDS ORDERED: NITROGLYCERIN 50MG/250ML BTL IV ONE (20:25)
[2017-05-04] MEDS: ATORVASTATIN 20 MG TAB PO SCH (22:13)
[2017-05-05] VITALS (72 sets, daily range): BP systolic 116–169; BP diastolic 50–85
[2017-05-05] MEDS: ACCU-CHEK COMFORT CURVE STRIP VI SCH ×6 (00:11→20:07)
[2017-05-05] MEDS: InsuLIN REG 1unit/0.01ml Soln (100units/ml) SC SCH ×6 (00:13→20:13)
[2017-05-05] MEDS: SODIUM CHLORIDE 0.9% 1,000 ML IV SCH ×3 (01:09→21:35)
[2017-05-05] MEDS: IPRATROPIUM BROM 0.5 MG/2.5ML INH SOL NEB SCH ×6 (02:22→22:54)
[2017-05-05] MEDS: NICARDIPINE 25MG/250ML BAG KIT 250 ML IV SCH ×5 (03:00→23:00)
[2017-05-05 03:55] LABS: Basophils # (auto) 0 uL; Basophils % (auto) 0.3 % (0.0-2.0); Eosinophils # (auto) 0.1 uL; Eosinophils % (auto) 1.1 % (0.0-7.0); Hematocrit 27.3 % (36.0-46.0); Hemoglobin 9.5 g/dL (12.2-16.2); Lymphocytes # (auto) 0.8 uL; Lymphocytes % (auto) 6.3 % (10.0-50.0); Mean Corpuscular Hgb Conc. 34.8 g/dL (32.0-36.0); Mean Corpuscular Volume 89.2 fL (80.0-100.0); Monocytes # (auto) 0.8 uL; Monocytes % (auto) 5.9 % (0.0-12.0); Neutrophils # (auto) 11.6 uL; Neutrophils % (auto) 86.4 % (37.0-80.0); Platelet Count (auto) 335 10^3/uL (140-450); Red Blood Cells 3.07 10^6/uL (4.0-5.20); Red Cell Distribution Width 13.2 % (11.8-14.3); White Blood Cell 13.4 10^3/uL (4.4-10.8)
[2017-05-05 04:25] LABS: Albumin 2.6 g/dL (3.4-5.0); BUN/Creatinine Ratio 36.7; Bilirubin, Total 0.7 mg/dL (0.2-1.0); Calcium 8.6 mg/dL (8.5-10.1); Potassium 3.1 mmol/L (3.5-5.1); Total Protein 6.9 g/dL (6.4-8.2)
[2017-05-05] MEDS: HYDROcodone-ACET 5/325MG TAB PO PRN ×3 (04:25→18:00)
[2017-05-05] MEDS: ACETYLCYSTEINE 10 %(100MG/ML) SOL 4ML NEB SCH ×3 (06:16→22:54)
[2017-05-05] MEDS: metFORMIN HYDROCHLORIDE 850 MG TAB PO SCH ×2 (06:18→17:28)
[2017-05-05] MEDS: glipiZIDE 5 MG TAB PO SCH (06:18)
[2017-05-05] MEDS: INSULIN LANTUS (GLARGINE) 1 /0.01ml (100units/ml) SC SCH ×2 (06:45→22:40)
[2017-05-05] MEDS ORDERED: POTASSIUM CHL 20MEQ/100ML 100 ML IV ONE (06:51)
[2017-05-05] MEDS: POTASSIUM CHL 20MEQ/100ML 100 ML IV SCH ×2 (07:11→09:00)
[2017-05-05] MEDS: Boost Glucose Control 8 Ounces PO SCH ×3 (08:00→17:28)
[2017-05-05] MEDS: PROPRANOLOL HCL 1 MG/ML VIAL IV PRN (08:38)
[2017-05-05] MEDS: DOCUSATE SOD 100 MG CAP PO SCH ×2 (10:00→21:27)
[2017-05-05] MEDS: NITROGLYCERIN 0.4MG/HR TOPICAL PATCH TD SCH (10:00)
[2017-05-05] MEDS: AMIODARONE HCL 200 MG TAB PO SCH ×2 (10:08→21:20)
[2017-05-05] MEDS: POTASSIUM CHL 20 Meq TABLET PO SCH (10:08)
[2017-05-05] MEDS: FUROSEMIDE 40 MG TAB PO SCH (10:08)
[2017-05-05] MEDS: PANTOPRAZOLE 40 MG TAB PO SCH (10:09)
[2017-05-05] MEDS: CHLORHEXIDINE 0.12% ORAL rinse 473ML MT SCH ×2 (10:09→22:00)
[2017-05-05] MEDS: METOPROLOL TARTRATE 50 MG TAB PO SCH ×2 (10:09→21:20)
[2017-05-05] MEDS: CLOPIDOGREL BISULFATE 75 MG TAB PO SCH (10:09)
[2017-05-05] MEDS: RAMIPRIL 2.5 MG CAP PO SCH (10:09)
[2017-05-05] MEDS: CHLORHEXIDINE 4% TOPICAL soln 473ML TOP SCH ×2 (10:10→22:00)
[2017-05-05] MEDS: MIDAZOLAM DRIP 50 mg/50mL 50 ML IV SCH (11:10)
[2017-05-05] MEDS: NITROGLYCERIN 50MG/250ML 250 ML IV SCH (12:00)
[2017-05-05] MEDS: SODIUM CHLORIDE 0.9% 500 ML IV SCH (14:33)
[2017-05-05] MEDS: hydrALAZINE HCL 20 MG/ML VL IV PRN (17:26)
[2017-05-05] MEDS: ATORVASTATIN 20 MG TAB PO SCH (21:20)
[2017-05-05] MEDS ORDERED: CHLORHEXIDINE 4% TOPICAL soln 237ML TOP ONE (21:37)
[2017-05-06] VITALS (41 sets, daily range): BP systolic 111–172; BP diastolic 51–83
[2017-05-06] MEDS: ACCU-CHEK COMFORT CURVE STRIP VI SCH ×6 (00:13→20:30)
[2017-05-06] MEDS: InsuLIN REG 1unit/0.01ml Soln (100units/ml) SC SCH ×6 (00:15→20:32)
[2017-05-06] MEDS: IPRATROPIUM BROM 0.5 MG/2.5ML INH SOL NEB SCH ×6 (02:33→22:28)
[2017-05-06 03:33] LABS: Basophils # (auto) 0 uL; Basophils % (auto) 0.1 % (0.0-2.0); Eosinophils # (auto) 0.1 uL; Eosinophils % (auto) 0.7 % (0.0-7.0); Hematocrit 27.5 % (36.0-46.0); Hemoglobin 9.5 g/dL (12.2-16.2); Lymphocytes # (auto) 0.7 uL; Lymphocytes % (auto) 4.4 % (10.0-50.0); Mean Corpuscular Hemoglobin 30.7 pg (28.0-32.0); Mean Corpuscular Hgb Conc. 34.6 g/dL (32.0-36.0); Mean Corpuscular Volume 88.9 fL (80.0-100.0); Monocytes # (auto) 0.9 uL; Monocytes % (auto) 5.2 % (0.0-12.0); Neutrophils % (auto) 89.6 % (37.0-80.0); Platelet Count (auto) 357 10^3/uL (140-450); Red Cell Distribution Width 13.2 % (11.8-14.3); White Blood Cell 16.8 10^3/uL (4.4-10.8)
[2017-05-06 03:39] LABS: Calcium 8.8 mg/dL (8.5-10.1); Potassium 3.1 mmol/L (3.5-5.1)
[2017-05-06] MEDS: NICARDIPINE 25MG/250ML BAG KIT 250 ML IV SCH ×2 (04:00→09:00)
[2017-05-06] MEDS: HYDROcodone-ACET 5/325MG TAB PO PRN (05:40)
[2017-05-06] MEDS: ACETYLCYSTEINE 10 %(100MG/ML) SOL 4ML NEB SCH ×3 (06:18→22:28)
[2017-05-06] MEDS: metFORMIN HYDROCHLORIDE 850 MG TAB PO SCH ×2 (06:26→18:00)
[2017-05-06] MEDS: glipiZIDE 5 MG TAB PO SCH (06:26)
[2017-05-06] MEDS: INSULIN LANTUS (GLARGINE) 1 /0.01ml (100units/ml) SC SCH ×2 (07:00→22:45)
[2017-05-06] MEDS: Boost Glucose Control 8 Ounces PO SCH ×3 (08:00→18:00)
[2017-05-06] MEDS: POTASSIUM CHL 20 Meq TABLET PO SCH (10:00)
[2017-05-06] MEDS: CHLORHEXIDINE 4% TOPICAL soln 473ML TOP SCH (10:00)
[2017-05-06] MEDS: NITROGLYCERIN 0.4MG/HR TOPICAL PATCH TD SCH (10:00)
[2017-05-06] MEDS: CHLORHEXIDINE 0.12% ORAL rinse 473ML MT SCH (10:44)
[2017-05-06] MEDS: RAMIPRIL 2.5 MG CAP PO SCH (10:59)
[2017-05-06] MEDS: DOCUSATE SOD 100 MG CAP PO SCH ×2 (11:00→22:47)
[2017-05-06] MEDS: PANTOPRAZOLE 40 MG TAB PO SCH (11:00)
[2017-05-06] MEDS: FUROSEMIDE 40 MG TAB PO SCH (11:01)
[2017-05-06] MEDS: CLOPIDOGREL BISULFATE 75 MG TAB PO SCH (11:01)
[2017-05-06] MEDS: METOPROLOL TARTRATE 50 MG TAB PO SCH ×2 (11:02→22:46)
[2017-05-06] MEDS: AMIODARONE HCL 200 MG TAB PO SCH ×2 (11:03→22:47)
[2017-05-06] MEDS: MIDAZOLAM DRIP 50 mg/50mL 50 ML IV SCH (11:10)
[2017-05-06] MEDS: NITROGLYCERIN 50MG/250ML 250 ML IV SCH (12:00)
[2017-05-06] MEDS ORDERED: EPINEPHrine HCL 0.5 ML NEB ONE (14:21)
[2017-05-06] MEDS ORDERED: EPINEPHrine HCL 0.5 ML NEB NEB ONE (14:30)
[2017-05-06] MEDS: SODIUM CHLORIDE 0.9% 500 ML IV SCH (14:33)
[2017-05-06] MEDS: SODIUM CHLORIDE 0.9% 1,000 ML IV SCH ×2 (16:05→16:10)
[2017-05-06] MEDS: PROPRANOLOL HCL 1 MG/ML VIAL IV PRN (20:16)
[2017-05-06] MEDS: ATORVASTATIN 20 MG TAB PO SCH (22:47)
[2017-05-07] VITALS (29 sets, daily range): BP systolic 111–154; BP diastolic 48–95
[2017-05-07] MEDS: ACCU-CHEK COMFORT CURVE STRIP VI SCH ×6 (00:32→20:00)
[2017-05-07] MEDS: InsuLIN REG 1unit/0.01ml Soln (100units/ml) SC SCH ×6 (00:32→20:00)
[2017-05-07] MEDS: IPRATROPIUM BROM 0.5 MG/2.5ML INH SOL NEB SCH ×6 (02:00→22:40)
[2017-05-07 04:34] LABS: Basophils # (auto) 0 uL; Basophils % (auto) 0.1 % (0.0-2.0); Eosinophils # (auto) 0 uL; Hematocrit 29.8 % (36.0-46.0); Lymphocytes # (auto) 0.6 uL; Lymphocytes % (auto) 2.9 % (10.0-50.0); Mean Corpuscular Hemoglobin 29.7 pg (28.0-32.0); Mean Corpuscular Hgb Conc. 33.5 g/dL (32.0-36.0); Mean Corpuscular Volume 88.8 fL (80.0-100.0); Monocytes # (auto) 1.1 uL; Monocytes % (auto) 5.3 % (0.0-12.0); Neutrophils # (auto) 19.4 uL; Neutrophils % (auto) 91.7 % (37.0-80.0); Platelet Count (auto) 400 10^3/uL (140-450); Red Blood Cells 3.36 10^6/uL (4.0-5.20); Red Cell Distribution Width 13.1 % (11.8-14.3); White Blood Cell 21.1 10^3/uL (4.4-10.8)
[2017-05-07 04:49] LABS: BUN/Creatinine Ratio 38.5; Calcium 8.7 mg/dL (8.5-10.1)
[2017-05-07 04:53] LABS: Potassium 2.7 mmol/L (3.5-5.1)
[2017-05-07] MEDS: ACETYLCYSTEINE 10 %(100MG/ML) SOL 4ML NEB SCH ×3 (06:06→22:41)
[2017-05-07] MEDS: metFORMIN HYDROCHLORIDE 850 MG TAB PO SCH ×2 (06:53→18:00)
[2017-05-07] MEDS: glipiZIDE 5 MG TAB PO SCH (06:53)
[2017-05-07] MEDS: INSULIN LANTUS (GLARGINE) 1 /0.01ml (100units/ml) SC SCH ×2 (06:53→22:00)
[2017-05-07] MEDS: POTASSIUM CHL 20MEQ/100ML 100 ML IV SCH ×4 (07:30→13:30)
[2017-05-07] MEDS: Boost Glucose Control 8 Ounces PO SCH ×3 (08:00→18:00)
[2017-05-07] MEDS: SODIUM CHLORIDE 0.9% 1,000 ML IV SCH ×3 (08:25→12:09)
[2017-05-07] MEDS: DOCUSATE SOD 100 MG CAP PO SCH ×2 (10:00→22:00)
[2017-05-07] MEDS: POTASSIUM CHL 20 Meq TABLET PO SCH (10:00)
[2017-05-07] MEDS: FUROSEMIDE 40 MG TAB PO SCH (10:00)
[2017-05-07] MEDS: RAMIPRIL 2.5 MG CAP PO SCH (10:00)
[2017-05-07] MEDS: PANTOPRAZOLE 40 MG TAB PO SCH (10:00)
[2017-05-07] MEDS: CLOPIDOGREL BISULFATE 75 MG TAB PO SCH (10:00)
[2017-05-07] MEDS: METOPROLOL TARTRATE 50 MG TAB PO SCH ×2 (10:00→13:23)
[2017-05-07] MEDS: NITROGLYCERIN 0.4MG/HR TOPICAL PATCH TD SCH (10:00)
[2017-05-07] MEDS: AMIODARONE HCL 200 MG TAB PO SCH ×2 (10:00→22:00)
[2017-05-07] MEDS: NITROGLYCERIN 50MG/250ML 250 ML IV SCH (12:00)
[2017-05-07 17:02] LABS: Urine Amorphous Crystal FEW /hpf (None Seen); Urine Bacteria FEW /hpf (None Seen); Urine Hyaline Cast FEW /lpf (0 - 2); Urine Mucus FEW (None Seen); Urine Sperm PRESENT /hpf (None Seen); Urine WBC 64 /hpf (0 - 5)
[2017-05-07] MEDS: ATORVASTATIN 20 MG TAB PO SCH (22:00)
[2017-05-08] VITALS (22 sets, daily range): BP systolic 101–151; BP diastolic 48–96
[2017-05-08] MEDS: ACCU-CHEK COMFORT CURVE STRIP VI SCH ×6 (00:28→20:14)
[2017-05-08] MEDS: IPRATROPIUM BROM 0.5 MG/2.5ML INH SOL NEB SCH ×6 (02:38→22:05)
[2017-05-08] MEDS: hydrALAZINE HCL 20 MG/ML VL IV PRN (03:15)
[2017-05-08] MEDS: PROPRANOLOL HCL 1 MG/ML VIAL IV PRN (03:20)
[2017-05-08] MEDS: InsuLIN REG 1unit/0.01ml Soln (100units/ml) SC SCH ×6 (03:55→20:00)
[2017-05-08] MEDS: METOPROLOL TARTRATE 50 MG TAB PO SCH ×2 (03:56→16:16)
[2017-05-08 04:09] LABS: Basophils # (auto) 0 uL; Basophils % (auto) 0.2 % (0.0-2.0); Eosinophils # (auto) 0 uL; Eosinophils % (auto) 0.1 % (0.0-7.0); Hematocrit 28.8 % (36.0-46.0); Hemoglobin 9.7 g/dL (12.2-16.2); Lymphocytes # (auto) 0.6 uL; Lymphocytes % (auto) 4.1 % (10.0-50.0); Mean Corpuscular Hemoglobin 30.1 pg (28.0-32.0); Mean Corpuscular Hgb Conc. 33.7 g/dL (32.0-36.0); Mean Corpuscular Volume 89.3 fL (80.0-100.0); Monocytes # (auto) 0.8 uL; Neutrophils # (auto) 14.4 uL; Neutrophils % (auto) 90.6 % (37.0-80.0); Platelet Count (auto) 413 10^3/uL (140-450); Red Blood Cells 3.23 10^6/uL (4.0-5.20); Red Cell Distribution Width 13.8 % (11.8-14.3); White Blood Cell 15.9 10^3/uL (4.4-10.8)
[2017-05-08 04:18] LABS: Albumin 2.5 g/dL (3.4-5.0); BUN/Creatinine Ratio 43.1; Bilirubin, Total 1.1 mg/dL (0.2-1.0); Calcium 8.8 mg/dL (8.5-10.1); Potassium 3.2 mmol/L (3.5-5.1); Total Protein 7.1 g/dL (6.4-8.2)
[2017-05-08] MEDS: glipiZIDE 5 MG TAB PO SCH (06:36)
[2017-05-08] MEDS: INSULIN LANTUS (GLARGINE) 1 /0.01ml (100units/ml) SC SCH ×2 (06:37→22:14)
[2017-05-08] MEDS: metFORMIN HYDROCHLORIDE 850 MG TAB PO SCH ×2 (06:40→18:00)
[2017-05-08] MEDS: Boost Glucose Control 8 Ounces PO SCH ×2 (08:00→16:17)
[2017-05-08] MEDS: SODIUM CHLORIDE 0.9% 1,000 ML IV SCH ×3 (08:00→08:30)
[2017-05-08] MEDS: ACETYLCYSTEINE 10 %(100MG/ML) SOL 4ML NEB SCH ×3 (08:41→22:05)
[2017-05-08] MEDS: PANTOPRAZOLE 40 MG/10 ML VIAL IV SCH (09:34)
[2017-05-08] MEDS: DOCUSATE SOD 100 MG CAP PO SCH ×2 (09:35→22:00)
[2017-05-08] MEDS: RAMIPRIL 2.5 MG CAP PO SCH (09:35)
[2017-05-08] MEDS: AMIODARONE HCL 200 MG TAB PO SCH ×2 (09:36→22:13)
[2017-05-08] MEDS: FUROSEMIDE 40 MG TAB PO SCH (09:36)
[2017-05-08] MEDS: POTASSIUM CHL 20 Meq TABLET PO SCH (09:36)
[2017-05-08] MEDS: CLOPIDOGREL BISULFATE 75 MG TAB PO SCH (09:37)
[2017-05-08] MEDS: NITROGLYCERIN 0.4MG/HR TOPICAL PATCH TD SCH (09:38)
[2017-05-08] MEDS ORDERED: OMEPRAZOLE 20MG/10ML ORAL SUSP GT SCH (10:00)
[2017-05-08] MEDS: NITROGLYCERIN 50MG/250ML 250 ML IV SCH (12:00)
[2017-05-08] MEDS: LEVOFLOXACIN 500MG 100 ML IV SCH (15:56)
[2017-05-08] MEDS: ATORVASTATIN 20 MG TAB PO SCH (22:13)
[2017-05-09] VITALS (22 sets, daily range): BP systolic 102–155; BP diastolic 55–96
[2017-05-09] MEDS: ACCU-CHEK COMFORT CURVE STRIP VI SCH ×6 (00:27→20:40)
[2017-05-09] MEDS: IPRATROPIUM BROM 0.5 MG/2.5ML INH SOL NEB SCH ×6 (02:32→22:46)
[2017-05-09] MEDS: InsuLIN REG 1unit/0.01ml Soln (100units/ml) SC SCH ×6 (04:00→20:40)
[2017-05-09] MEDS: METOPROLOL TARTRATE 50 MG TAB PO SCH ×2 (05:00→16:00)
[2017-05-09 05:23] LABS: BUN/Creatinine Ratio 63.6; Calcium 8.4 mg/dL (8.5-10.1)
[2017-05-09 05:33] LABS: Potassium 2.5 mmol/L (3.5-5.1)
[2017-05-09] MEDS: ACETYLCYSTEINE 10 %(100MG/ML) SOL 4ML NEB SCH ×3 (06:36→22:46)
[2017-05-09] MEDS: metFORMIN HYDROCHLORIDE 850 MG TAB PO SCH ×2 (07:00→17:08)
[2017-05-09] MEDS: glipiZIDE 5 MG TAB PO SCH (07:00)
[2017-05-09] MEDS: INSULIN LANTUS (GLARGINE) 1 /0.01ml (100units/ml) SC SCH ×2 (07:00→23:11)
[2017-05-09] MEDS: Boost Glucose Control 8 Ounces PO SCH (08:00)
[2017-05-09] MEDS: SODIUM CHLORIDE 0.9% 1,000 ML IV SCH (08:30)
[2017-05-09] MEDS ORDERED: Diabetisource AC 1 Liter GT SCH (09:45)
[2017-05-09] MEDS: DOCUSATE SOD 100 MG CAP PO SCH ×2 (09:54→23:11)
[2017-05-09] MEDS: NITROGLYCERIN 0.4MG/HR TOPICAL PATCH TD SCH (10:00)
[2017-05-09] MEDS: PANTOPRAZOLE 40 MG/10 ML VIAL IV SCH (10:00)
[2017-05-09] MEDS: FUROSEMIDE 40 MG TAB PO SCH (10:00)
[2017-05-09] MEDS: RAMIPRIL 2.5 MG CAP PO SCH (10:00)
[2017-05-09] MEDS: CLOPIDOGREL BISULFATE 75 MG TAB PO SCH (10:00)
[2017-05-09] MEDS: LEVOFLOXACIN 500MG 100 ML IV SCH (10:00)
[2017-05-09] MEDS: AMIODARONE HCL 200 MG TAB PO SCH ×2 (10:00→23:11)
[2017-05-09] MEDS ORDERED: POTASSIUM CHLORIDE 80 MEQ, LIDOCAINE 1% (LOCAL ANESTH.) 6 ML in SODIUM CHL 0.9% 500 ML IV ONE (10:15)
[2017-05-09] MEDS: POTASSIUM CHL 10% (20 MEQ/15ML) 15ml ORAL SOLN PO SCH (11:00)
[2017-05-09] MEDS: NITROGLYCERIN 50MG/250ML 250 ML IV SCH (12:00)
[2017-05-09] MEDS: cloNIDine 0.2 mg/24hr 7DAY PATCH TD SCH (12:00)
[2017-05-09 12:18] LABS: INR 1.1 (0.9-1.15)
[2017-05-09] MEDS ORDERED: LIDOCAINE 1% HCL (LOCAL ANESTH.) INJ 20ML MDV ID ONE (14:15)
[2017-05-09] MEDS: ATORVASTATIN 20 MG TAB PO SCH (23:11)
[2017-05-09] MEDS: SODIUM CHLOR 0.9% PF (SALINE LOCK) 10ML VIAL IV SCH (23:12)
[2017-05-10] MEDS: IPRATROPIUM BROM 0.5 MG/2.5ML INH SOL NEB SCH ×6 (02:44→22:09)
[2017-05-10 03:50] VITALS: BP 159/74
[2017-05-10] MEDS: ACCU-CHEK COMFORT CURVE STRIP VI SCH ×6 (04:02→20:03)
[2017-05-10] MEDS: InsuLIN REG 1unit/0.01ml Soln (100units/ml) SC SCH ×6 (04:07→20:00)
[2017-05-10] MEDS: METOPROLOL TARTRATE 50 MG TAB PO SCH ×2 (04:07→16:09)
[2017-05-10] MEDS: ACETYLCYSTEINE 10 %(100MG/ML) SOL 4ML NEB SCH ×3 (06:19→22:09)
[2017-05-10] MEDS: INSULIN LANTUS (GLARGINE) 1 /0.01ml (100units/ml) SC SCH ×2 (06:53→22:00)
[2017-05-10] MEDS: glipiZIDE 5 MG TAB PO SCH (06:53)
[2017-05-10] MEDS: metFORMIN HYDROCHLORIDE 850 MG TAB PO SCH ×2 (06:59→18:06)
[2017-05-10 07:50] VITALS: BP 163/78
[2017-05-10 09:21] VITALS: BP 163/78
[2017-05-10] MEDS: AMIODARONE HCL 200 MG TAB PO SCH ×2 (11:05→22:40)
[2017-05-10] MEDS: SODIUM CHLOR 0.9% PF (SALINE LOCK) 10ML VIAL IV SCH ×2 (11:05→23:36)
[2017-05-10] MEDS: FUROSEMIDE 40 MG TAB PO SCH (11:05)
[2017-05-10] MEDS: PANTOPRAZOLE 40 MG/10 ML VIAL IV SCH (11:05)
[2017-05-10] MEDS: NITROGLYCERIN 0.4MG/HR TOPICAL PATCH TD SCH (11:06)
[2017-05-10] MEDS: CLOPIDOGREL BISULFATE 75 MG TAB PO SCH (11:06)
[2017-05-10] MEDS: LEVOFLOXACIN 500MG 100 ML IV SCH (11:07)
[2017-05-10] MEDS: DOCUSATE SOD 100 MG CAP PO SCH ×2 (11:08→22:00)
[2017-05-10] MEDS: POTASSIUM CHL 10% (20 MEQ/15ML) 15ml ORAL SOLN PO SCH (11:08)
[2017-05-10] MEDS: SODIUM CHLORIDE 0.9% 1,000 ML IV SCH ×3 (11:45→20:00)
[2017-05-10] MEDS: RAMIPRIL 2.5 MG CAP PO SCH (11:45)
[2017-05-10] MEDS: NITROGLYCERIN 50MG/250ML 250 ML IV SCH (11:46)
[2017-05-10 11:53] VITALS: BP 135/70
[2017-05-10 15:55] VITALS: BP 131/68
[2017-05-10 19:59] VITALS: BP 121/64
[2017-05-10] MEDS ORDERED: DOCUSATE ORAL LIQUID 100 MG/10 ML UD ONE (22:18)
[2017-05-10] MEDS: ATORVASTATIN 20 MG TAB PO SCH (22:40)
[2017-05-11] VITALS: BP 125/61
[2017-05-11] MEDS: IPRATROPIUM BROM 0.5 MG/2.5ML INH SOL NEB SCH ×6 (02:15→22:23)
[2017-05-11] MEDS: ACCU-CHEK COMFORT CURVE STRIP VI SCH ×6 (02:20→20:00)
[2017-05-11 04:00] VITALS: BP 123/61
[2017-05-11] MEDS: InsuLIN REG 1unit/0.01ml Soln (100units/ml) SC SCH ×6 (04:01→20:00)
[2017-05-11] MEDS: METOPROLOL TARTRATE 50 MG TAB PO SCH ×2 (04:08→16:42)
[2017-05-11] MEDS: ACETYLCYSTEINE 10 %(100MG/ML) SOL 4ML NEB SCH ×3 (06:18→22:23)
[2017-05-11] MEDS: INSULIN LANTUS (GLARGINE) 1 /0.01ml (100units/ml) SC SCH ×2 (06:43→22:00)
[2017-05-11] MEDS: glipiZIDE 5 MG TAB PO SCH (06:43)
[2017-05-11] MEDS: metFORMIN HYDROCHLORIDE 850 MG TAB PO SCH ×2 (06:43→18:15)
[2017-05-11] MEDS: SODIUM CHLORIDE 0.9% 1,000 ML IV SCH ×2 (08:30→15:16)
[2017-05-11] MEDS: CLOPIDOGREL BISULFATE 75 MG TAB PO SCH (10:20)
[2017-05-11] MEDS: SODIUM CHLOR 0.9% PF (SALINE LOCK) 10ML VIAL IV SCH ×2 (10:20→22:25)
[2017-05-11] MEDS: AMIODARONE HCL 200 MG TAB PO SCH ×2 (10:20→22:25)
[2017-05-11] MEDS: DOCUSATE SOD 100 MG CAP PO SCH ×2 (10:20→22:00)
[2017-05-11] MEDS: NITROGLYCERIN 0.4MG/HR TOPICAL PATCH TD SCH (10:20)
[2017-05-11] MEDS: FUROSEMIDE 40 MG TAB PO SCH (10:21)
[2017-05-11] MEDS: PANTOPRAZOLE 40 MG/10 ML VIAL IV SCH (10:21)
[2017-05-11] MEDS: LEVOFLOXACIN 500MG 100 ML IV SCH (10:21)
[2017-05-11] MEDS: POTASSIUM CHL 10% (20 MEQ/15ML) 15ml ORAL SOLN PO SCH (10:22)
[2017-05-11] MEDS: RAMIPRIL 2.5 MG CAP PO SCH (10:50)
[2017-05-11 11:50] VITALS: BP 139/70
[2017-05-11 15:53] VITALS: BP 126/67
[2017-05-11 19:44] VITALS: BP 134/70
[2017-05-11] MEDS: ATORVASTATIN 20 MG TAB PO SCH (22:25)
[2017-05-11 23:54] VITALS: BP 128/60
[2017-05-12] MEDS: ACCU-CHEK COMFORT CURVE STRIP VI SCH ×7 (00:04→23:58)
[2017-05-12] MEDS: IPRATROPIUM BROM 0.5 MG/2.5ML INH SOL NEB SCH ×6 (02:46→22:15)
[2017-05-12 04:00] VITALS: BP 103/50
[2017-05-12] MEDS: METOPROLOL TARTRATE 50 MG TAB PO SCH ×2 (04:00→16:32)
[2017-05-12] MEDS: InsuLIN REG 1unit/0.01ml Soln (100units/ml) SC SCH ×7 (04:00→23:58)
[2017-05-12 05:00] LABS: Basophils # (auto) 0 uL; Basophils % (auto) 0.2 % (0.0-2.0); Eosinophils # (auto) 0.2 uL; Eosinophils % (auto) 2.2 % (0.0-7.0); Hematocrit 30.1 % (36.0-46.0); Hemoglobin 10.2 g/dL (12.2-16.2); Lymphocytes # (auto) 1.2 uL; Mean Corpuscular Hemoglobin 30.2 pg (28.0-32.0); Mean Corpuscular Volume 88.8 fL (80.0-100.0); Monocytes # (auto) 0.6 uL; Monocytes % (auto) 7.7 % (0.0-12.0); Neutrophils # (auto) 6.1 uL; Neutrophils % (auto) 74.9 % (37.0-80.0); Nucleated Red Blood Cells % 0.1 %; Platelet Count (auto) 322 10^3/uL (140-450); Red Blood Cells 3.39 10^6/uL (4.0-5.20); Red Cell Distribution Width 13.2 % (11.8-14.3); White Blood Cell 8.1 10^3/uL (4.4-10.8)
[2017-05-12 05:16] LABS: Calcium 8.7 mg/dL (8.5-10.1)
[2017-05-12] MEDS: ACETYLCYSTEINE 10 %(100MG/ML) SOL 4ML NEB SCH ×3 (06:08→22:15)
[2017-05-12] MEDS: metFORMIN HYDROCHLORIDE 850 MG TAB PO SCH ×2 (06:37→18:00)
[2017-05-12] MEDS: INSULIN LANTUS (GLARGINE) 1 /0.01ml (100units/ml) SC SCH ×2 (06:38→20:40)
[2017-05-12] MEDS: glipiZIDE 5 MG TAB PO SCH (06:38)
[2017-05-12 08:00] VITALS: BP 153/73
[2017-05-12] MEDS: POTASSIUM CHL 10% (20 MEQ/15ML) 15ml ORAL SOLN PO SCH (10:00)
[2017-05-12] MEDS: SODIUM CHLOR 0.9% PF (SALINE LOCK) 10ML VIAL IV SCH ×2 (10:00→21:48)
[2017-05-12] MEDS: NITROGLYCERIN 0.4MG/HR TOPICAL PATCH TD SCH (11:04)
[2017-05-12] MEDS: LEVOFLOXACIN 500MG 100 ML IV SCH (11:06)
[2017-05-12] MEDS: CLOPIDOGREL BISULFATE 75 MG TAB PO SCH (11:19)
[2017-05-12] MEDS: PANTOPRAZOLE 40 MG/10 ML VIAL IV SCH (11:19)
[2017-05-12] MEDS: FUROSEMIDE 40 MG TAB PO SCH (11:20)
[2017-05-12] MEDS: AMIODARONE HCL 200 MG TAB PO SCH ×2 (11:20→21:49)
[2017-05-12] MEDS: SODIUM CHLORIDE 0.9% 1,000 ML IV SCH (12:00)
[2017-05-12 13:08] VITALS: BP 148/72
[2017-05-12] MEDS: RAMIPRIL 2.5 MG CAP PO SCH (14:45)
[2017-05-12] MEDS: POTASSIUM CHL 20MEQ/100ML 100 ML IV SCH ×4 (14:46→22:52)
[2017-05-12] MEDS: DOCUSATE ORAL LIQUID 100 MG/10 ML UD GT SCH ×2 (14:46→21:48)
[2017-05-12] MEDS: ACETAMINOPHEN 325 MG TAB PO PRN (15:43)
[2017-05-12 16:45] VITALS: BP 129/77
[2017-05-12 20:10] VITALS: BP 126/73
[2017-05-12] MEDS: ATORVASTATIN 20 MG TAB PO SCH (21:49)
[2017-05-13] VITALS (7 sets, daily range): BP systolic 115–147; BP diastolic 59–78
[2017-05-13] MEDS: SODIUM CHLORIDE 0.9% 1,000 ML IV SCH ×3 (02:01→08:30)
[2017-05-13] MEDS: IPRATROPIUM BROM 0.5 MG/2.5ML INH SOL NEB SCH ×6 (02:10→22:30)
[2017-05-13] MEDS: InsuLIN REG 1unit/0.01ml Soln (100units/ml) SC SCH ×6 (04:00→23:48)
[2017-05-13] MEDS: ACCU-CHEK COMFORT CURVE STRIP VI SCH ×6 (04:13→23:47)
[2017-05-13] MEDS: METOPROLOL TARTRATE 50 MG TAB PO SCH ×2 (04:13→16:26)
[2017-05-13] MEDS: ACETYLCYSTEINE 10 %(100MG/ML) SOL 4ML NEB SCH ×3 (05:53→22:30)
[2017-05-13] MEDS: metFORMIN HYDROCHLORIDE 850 MG TAB PO SCH ×2 (06:43→18:14)
[2017-05-13] MEDS: glipiZIDE 5 MG TAB PO SCH (06:43)
[2017-05-13] MEDS: INSULIN LANTUS (GLARGINE) 1 /0.01ml (100units/ml) SC SCH ×2 (06:44→21:32)
[2017-05-13 08:00] LABS: Albumin 2.6 g/dL (3.4-5.0); BUN/Creatinine Ratio 47.1; Potassium 3.8 mmol/L (3.5-5.1)
[2017-05-13 08:03] LABS: Bilirubin, Total 0.8 mg/dL (0.2-1.0); Total Protein 6.7 g/dL (6.4-8.2)
[2017-05-13] MEDS: PANTOPRAZOLE 40 MG/10 ML VIAL IV SCH (11:19)
[2017-05-13] MEDS: DOCUSATE ORAL LIQUID 100 MG/10 ML UD GT SCH ×2 (11:19→21:46)
[2017-05-13] MEDS: SODIUM CHLOR 0.9% PF (SALINE LOCK) 10ML VIAL IV SCH ×2 (11:19→21:32)
[2017-05-13] MEDS: NITROGLYCERIN 0.4MG/HR TOPICAL PATCH TD SCH (11:20)
[2017-05-13] MEDS: CLOPIDOGREL BISULFATE 75 MG TAB PO SCH (11:21)
[2017-05-13] MEDS: RAMIPRIL 2.5 MG CAP PO SCH (11:22)
[2017-05-13] MEDS: AMIODARONE HCL 200 MG TAB PO SCH ×2 (11:23→21:46)
[2017-05-14] MEDS: IPRATROPIUM BROM 0.5 MG/2.5ML INH SOL NEB SCH ×6 (02:32→22:37)
[2017-05-14] MEDS: SODIUM CHLORIDE 0.9% 1,000 ML IV SCH (03:51)
[2017-05-14] MEDS: METOPROLOL TARTRATE 50 MG TAB PO SCH ×2 (03:51→15:37)
[2017-05-14 03:52] VITALS: BP 111/62
[2017-05-14] MEDS: ACCU-CHEK COMFORT CURVE STRIP VI SCH ×5 (03:52→20:07)
[2017-05-14] MEDS: InsuLIN REG 1unit/0.01ml Soln (100units/ml) SC SCH ×5 (03:52→20:07)
[2017-05-14 05:34] LABS: Basophils # (auto) 0 uL; Basophils % (auto) 0.3 % (0.0-2.0); Eosinophils # (auto) 0.5 uL; Eosinophils % (auto) 7.3 % (0.0-7.0); Hematocrit 32.6 % (36.0-46.0); Hemoglobin 11.2 g/dL (12.2-16.2); Lymphocytes # (auto) 1.4 uL; Lymphocytes % (auto) 18.7 % (10.0-50.0); Mean Corpuscular Hemoglobin 30.5 pg (28.0-32.0); Mean Corpuscular Hgb Conc. 34.4 g/dL (32.0-36.0); Mean Corpuscular Volume 88.6 fL (80.0-100.0); Monocytes # (auto) 0.6 uL; Neutrophils # (auto) 4.9 uL; Neutrophils % (auto) 65.7 % (37.0-80.0); Nucleated Red Blood Cells % 0.1 %; Platelet Count (auto) 311 10^3/uL (140-450); Red Blood Cells 3.68 10^6/uL (4.0-5.20); Red Cell Distribution Width 13.1 % (11.8-14.3); White Blood Cell 7.5 10^3/uL (4.4-10.8)
[2017-05-14 06:11] LABS: Albumin 2.7 g/dL (3.4-5.0); Calcium 8.8 mg/dL (8.5-10.1); Potassium 3.4 mmol/L (3.5-5.1)
[2017-05-14 06:16] LABS: Bilirubin, Total 0.8 mg/dL (0.2-1.0); Total Protein 6.8 g/dL (6.4-8.2)
[2017-05-14] MEDS: glipiZIDE 5 MG TAB PO SCH (06:21)
[2017-05-14] MEDS: metFORMIN HYDROCHLORIDE 850 MG TAB PO SCH ×2 (06:32→18:25)
[2017-05-14] MEDS: INSULIN LANTUS (GLARGINE) 1 /0.01ml (100units/ml) SC SCH ×2 (06:35→22:27)
[2017-05-14] MEDS: ACETYLCYSTEINE 10 %(100MG/ML) SOL 4ML NEB SCH ×3 (06:45→22:37)
[2017-05-14 08:00] VITALS: BP 122/72
[2017-05-14] MEDS: CLOPIDOGREL BISULFATE 75 MG TAB PO SCH (08:49)
[2017-05-14] MEDS: PANTOPRAZOLE 40 MG/10 ML VIAL IV SCH (08:49)
[2017-05-14] MEDS ORDERED: SODIUM BICARBONATE 8.4 % INJ 50ML VIAL IV ONE (10:47)
[2017-05-14] MEDS: DOCUSATE ORAL LIQUID 100 MG/10 ML UD GT SCH ×2 (11:53→22:27)
[2017-05-14] MEDS: SODIUM CHLOR 0.9% PF (SALINE LOCK) 10ML VIAL IV SCH ×2 (11:54→22:27)
[2017-05-14] MEDS: cloNIDine 0.2 mg/24hr 7DAY PATCH TD SCH (11:56)
[2017-05-14 12:00] VITALS: BP 122/65
[2017-05-14] MEDS: POTASSIUM CHL 20MEQ/100ML 100 ML IV SCH ×2 (14:51→16:57)
[2017-05-14 15:51] VITALS: BP 119/64
[2017-05-14 22:00] VITALS: BP 115/52
[2017-05-15] MEDS: IPRATROPIUM BROM 0.5 MG/2.5ML INH SOL NEB SCH ×6 (02:23→22:49)
[2017-05-15] MEDS: METOPROLOL TARTRATE 50 MG TAB PO SCH ×2 (04:00→16:27)
[2017-05-15] MEDS: ACCU-CHEK COMFORT CURVE STRIP VI SCH ×5 (04:00→16:27)
[2017-05-15] MEDS: InsuLIN REG 1unit/0.01ml Soln (100units/ml) SC SCH ×5 (04:00→16:27)
[2017-05-15] MEDS: ACETYLCYSTEINE 10 %(100MG/ML) SOL 4ML NEB SCH ×3 (06:00→22:49)
[2017-05-15 06:02] VITALS: BP 132/58
[2017-05-15] MEDS: metFORMIN HYDROCHLORIDE 850 MG TAB PO SCH ×2 (07:00→18:00)
[2017-05-15] MEDS: glipiZIDE 5 MG TAB PO SCH (07:00)
[2017-05-15] MEDS: INSULIN LANTUS (GLARGINE) 1 /0.01ml (100units/ml) SC SCH ×2 (07:00→22:00)
[2017-05-15 09:11] VITALS: BP 132/59
[2017-05-15] MEDS: PANTOPRAZOLE 40 MG/10 ML VIAL IV SCH (09:30)
[2017-05-15] MEDS: CLOPIDOGREL BISULFATE 75 MG TAB PO SCH (09:30)
[2017-05-15] MEDS: DOCUSATE ORAL LIQUID 100 MG/10 ML UD GT SCH ×2 (09:30→22:00)
[2017-05-15] MEDS: SODIUM CHLOR 0.9% PF (SALINE LOCK) 10ML VIAL IV SCH ×2 (09:30→22:00)
[2017-05-15 13:00] VITALS: BP 113/56
[2017-05-15 17:00] VITALS: BP 125/58
[2017-05-15] MEDS: SODIUM CHLORIDE 0.9% 1,000 ML IV SCH ×2 (20:00)
[2017-05-15 22:00] VITALS: BP 126/65
[2017-05-16] MEDS: IPRATROPIUM BROM 0.5 MG/2.5ML INH SOL NEB SCH ×6 (02:17→22:16)
[2017-05-16] MEDS: METOPROLOL TARTRATE 50 MG TAB PO SCH ×2 (04:00→17:09)
[2017-05-16 05:00] VITALS: BP 147/70
[2017-05-16] MEDS: metFORMIN HYDROCHLORIDE 850 MG TAB PO SCH ×2 (06:19→17:09)
[2017-05-16] MEDS: glipiZIDE 5 MG TAB PO SCH (06:20)
[2017-05-16] MEDS: INSULIN LANTUS (GLARGINE) 1 /0.01ml (100units/ml) SC SCH ×2 (06:20→22:00)
[2017-05-16] MEDS: ACETYLCYSTEINE 10 %(100MG/ML) SOL 4ML NEB SCH ×3 (06:43→22:16)
[2017-05-16 09:00] VITALS: BP 162/75
[2017-05-16] MEDS: SODIUM CHLOR 0.9% PF (SALINE LOCK) 10ML VIAL IV SCH ×2 (10:00→22:19)
[2017-05-16] MEDS: CLOPIDOGREL BISULFATE 75 MG TAB PO SCH (11:11)
[2017-05-16] MEDS: DOCUSATE ORAL LIQUID 100 MG/10 ML UD GT SCH ×2 (11:11→22:19)
[2017-05-16] MEDS: PANTOPRAZOLE 40 MG/10 ML VIAL IV SCH (11:11)
[2017-05-16 13:00] VITALS: BP 138/61
[2017-05-16 13:51] LABS: Basophils # (auto) 0 uL; Basophils % (auto) 0.3 % (0.0-2.0); Eosinophils # (auto) 0.6 uL; Eosinophils % (auto) 5.3 % (0.0-7.0); Hematocrit 33.1 % (36.0-46.0); Hemoglobin 11.3 g/dL (12.2-16.2); Lymphocytes # (auto) 1.1 uL; Lymphocytes % (auto) 10.8 % (10.0-50.0); Mean Corpuscular Hemoglobin 30.3 pg (28.0-32.0); Mean Corpuscular Hgb Conc. 34.1 g/dL (32.0-36.0); Mean Corpuscular Volume 88.7 fL (80.0-100.0); Monocytes # (auto) 0.5 uL; Monocytes % (auto) 4.3 % (0.0-12.0); Neutrophils # (auto) 8.3 uL; Neutrophils % (auto) 79.3 % (37.0-80.0); Platelet Count (auto) 275 10^3/uL (140-450); Red Blood Cells 3.72 10^6/uL (4.0-5.20); Red Cell Distribution Width 13.6 % (11.8-14.3); White Blood Cell 10.5 10^3/uL (4.4-10.8)
[2017-05-16 14:11] LABS: Calcium 8.2 mg/dL (8.5-10.1); Potassium 3.7 mmol/L (3.5-5.1)
[2017-05-16 14:13] VITALS: BP 138/61
[2017-05-16] MEDS: SODIUM CHLORIDE 0.9% 1,000 ML IV SCH (15:45)
[2017-05-16] MEDS ORDERED: DEXTROSE (50%) 50ML SYRG IV PRN (16:30)
[2017-05-16] MEDS ORDERED: LACTULOSE 20Gm/30ML SOLN PO ONE (16:30)
[2017-05-16] MEDS: cloNIDine 0.2 mg/24hr 7DAY PATCH TD SCH (17:06)
[2017-05-16] MEDS: ACCU-CHEK COMFORT CURVE STRIP VI SCH ×2 (17:09→22:28)
[2017-05-16] MEDS: InsuLIN REG 1unit/0.01ml Soln (100units/ml) SC SCH ×2 (17:20→22:28)
[2017-05-16 17:40] VITALS: BP 138/59
[2017-05-16 22:04] VITALS: BP 119/54
[2017-05-17] MEDS: IPRATROPIUM BROM 0.5 MG/2.5ML INH SOL NEB SCH ×6 (02:22→22:32)
[2017-05-17] MEDS: METOPROLOL TARTRATE 50 MG TAB PO SCH ×2 (04:22→17:38)
[2017-05-17 04:32] VITALS: BP 139/48
[2017-05-17] MEDS: ACETYLCYSTEINE 10 %(100MG/ML) SOL 4ML NEB SCH ×3 (05:50→22:32)
[2017-05-17] MEDS: ACCU-CHEK COMFORT CURVE STRIP VI SCH ×4 (06:54→21:55)
[2017-05-17] MEDS: glipiZIDE 5 MG TAB PO SCH (06:54)
[2017-05-17] MEDS: InsuLIN REG 1unit/0.01ml Soln (100units/ml) SC SCH ×4 (06:54→21:51)
[2017-05-17] MEDS: INSULIN LANTUS (GLARGINE) 1 /0.01ml (100units/ml) SC SCH ×2 (06:54→21:55)
[2017-05-17 09:00] VITALS: BP 138/65
[2017-05-17] MEDS: DOCUSATE ORAL LIQUID 100 MG/10 ML UD GT SCH ×2 (10:19→21:35)
[2017-05-17] MEDS: SODIUM CHLOR 0.9% PF (SALINE LOCK) 10ML VIAL IV SCH ×2 (10:20→21:45)
[2017-05-17] MEDS: PANTOPRAZOLE 40 MG/10 ML VIAL IV SCH (10:20)
[2017-05-17] MEDS: CLOPIDOGREL BISULFATE 75 MG TAB PO SCH (10:21)
[2017-05-17] MEDS: SODIUM CHLORIDE 0.9% 1,000 ML IV SCH (11:35)
[2017-05-17 13:00] VITALS: BP 154/62
[2017-05-17 17:41] VITALS: BP 141/62
[2017-05-17 21:32] VITALS: BP 145/95
[2017-05-18] MEDS: IPRATROPIUM BROM 0.5 MG/2.5ML INH SOL NEB SCH ×6 (02:23→22:25)
[2017-05-18] MEDS: METOPROLOL TARTRATE 50 MG TAB PO SCH ×2 (04:21→16:54)
[2017-05-18 04:59] VITALS: BP 139/61
[2017-05-18] MEDS: INSULIN LANTUS (GLARGINE) 1 /0.01ml (100units/ml) SC SCH ×2 (06:38→21:59)
[2017-05-18] MEDS: ACCU-CHEK COMFORT CURVE STRIP VI SCH ×4 (06:38→21:37)
[2017-05-18] MEDS: InsuLIN REG 1unit/0.01ml Soln (100units/ml) SC SCH ×4 (06:38→21:37)
[2017-05-18] MEDS: SODIUM CHLORIDE 0.9% 1,000 ML IV SCH (06:55)
[2017-05-18] MEDS: ACETYLCYSTEINE 10 %(100MG/ML) SOL 4ML NEB SCH ×3 (07:33→22:25)
[2017-05-18 09:26] VITALS: BP 151/63
[2017-05-18] MEDS: DOCUSATE ORAL LIQUID 100 MG/10 ML UD GT SCH ×2 (10:27→21:59)
[2017-05-18] MEDS: CLOPIDOGREL BISULFATE 75 MG TAB PO SCH (10:28)
[2017-05-18] MEDS: SODIUM CHLOR 0.9% PF (SALINE LOCK) 10ML VIAL IV SCH ×2 (10:28→21:37)
[2017-05-18] MEDS: PANTOPRAZOLE 40 MG/10 ML VIAL IV SCH (10:28)
[2017-05-18 13:00] VITALS: BP 140/59
[2017-05-18 17:13] VITALS: BP 152/71
[2017-05-18 21:30] VITALS: BP 122/50
[2017-05-19] MEDS: IPRATROPIUM BROM 0.5 MG/2.5ML INH SOL NEB SCH ×6 (02:11→22:42)
[2017-05-19] MEDS: SODIUM CHLORIDE 0.9% 1,000 ML IV SCH (04:03)
[2017-05-19] MEDS: METOPROLOL TARTRATE 50 MG TAB PO SCH ×2 (04:07→17:42)
[2017-05-19 05:00] VITALS: BP 141/64
[2017-05-19] MEDS: InsuLIN REG 1unit/0.01ml Soln (100units/ml) SC SCH ×4 (06:11→22:00)
[2017-05-19] MEDS: INSULIN LANTUS (GLARGINE) 1 /0.01ml (100units/ml) SC SCH ×2 (06:12→22:00)
[2017-05-19] MEDS: ACCU-CHEK COMFORT CURVE STRIP VI SCH ×4 (06:12→22:25)
[2017-05-19] MEDS: ACETYLCYSTEINE 10 %(100MG/ML) SOL 4ML NEB SCH ×3 (06:57→22:42)
[2017-05-19 09:00] VITALS: BP 134/63
[2017-05-19] MEDS: DOCUSATE ORAL LIQUID 100 MG/10 ML UD GT SCH ×2 (10:33→22:00)
[2017-05-19] MEDS: CLOPIDOGREL BISULFATE 75 MG TAB PO SCH (10:34)
[2017-05-19] MEDS: SODIUM CHLOR 0.9% PF (SALINE LOCK) 10ML VIAL IV SCH ×2 (10:34→22:24)
[2017-05-19] MEDS: PANTOPRAZOLE 40 MG/10 ML VIAL IV SCH (10:34)
[2017-05-19 10:58] VITALS: BP 141/64
[2017-05-19 12:00] VITALS: BP 142/65
[2017-05-19] MEDS: Boost Glucose Control 8 Ounces PO SCH ×2 (12:00→18:00)
[2017-05-19 17:32] VITALS: BP 144/65
[2017-05-19 22:00] VITALS: BP 158/69
[2017-05-20] MEDS: ACETYLCYSTEINE 10 %(100MG/ML) SOL 4ML NEB SCH ×3 (02:00→14:33)
[2017-05-20] MEDS: IPRATROPIUM BROM 0.5 MG/2.5ML INH SOL NEB SCH ×5 (02:41→19:43)
[2017-05-20] MEDS: METOPROLOL TARTRATE 50 MG TAB PO SCH ×2 (04:25→15:53)
[2017-05-20 05:00] VITALS: BP 142/68
[2017-05-20] MEDS: InsuLIN REG 1unit/0.01ml Soln (100units/ml) SC SCH ×4 (06:24→23:14)
[2017-05-20] MEDS: INSULIN LANTUS (GLARGINE) 1 /0.01ml (100units/ml) SC SCH (06:25)
[2017-05-20] MEDS: ACCU-CHEK COMFORT CURVE STRIP VI SCH ×4 (07:00→22:00)
[2017-05-20 08:45] VITALS: BP 144/63
[2017-05-20] MEDS: Boost Glucose Control 8 Ounces PO SCH ×4 (08:54→18:53)
[2017-05-20] MEDS: PANTOPRAZOLE 40 MG/10 ML VIAL IV SCH (10:32)
[2017-05-20] MEDS: DOCUSATE ORAL LIQUID 100 MG/10 ML UD GT SCH ×2 (10:32→23:13)
[2017-05-20] MEDS: SODIUM CHLOR 0.9% PF (SALINE LOCK) 10ML VIAL IV SCH ×2 (10:32→23:13)
[2017-05-20] MEDS: CLOPIDOGREL BISULFATE 75 MG TAB PO SCH (10:32)
[2017-05-20 12:09] VITALS: BP 162/76
[2017-05-20] MEDS: SODIUM CHLORIDE 0.9% 1,000 ML IV SCH ×2 (12:37)
[2017-05-20 15:17] LABS: Basophils # (auto) 0 uL; Basophils % (auto) 0.4 % (0.0-2.0); Eosinophils # (auto) 0.3 uL; Eosinophils % (auto) 3.9 % (0.0-7.0); Hematocrit 33.7 % (36.0-46.0); Hemoglobin 11.6 g/dL (12.2-16.2); Lymphocytes % (auto) 12.1 % (10.0-50.0); Mean Corpuscular Hemoglobin 30.3 pg (28.0-32.0); Mean Corpuscular Hgb Conc. 34.4 g/dL (32.0-36.0); Mean Corpuscular Volume 88.3 fL (80.0-100.0); Monocytes # (auto) 0.6 uL; Monocytes % (auto) 6.8 % (0.0-12.0); Neutrophils # (auto) 6.6 uL; Neutrophils % (auto) 76.8 % (37.0-80.0); Nucleated Red Blood Cells % 0.1 %; Platelet Count (auto) 271 10^3/uL (140-450); Red Blood Cells 3.82 10^6/uL (4.0-5.20); Red Cell Distribution Width 14.8 % (11.8-14.3); White Blood Cell 8.6 10^3/uL (4.4-10.8)
[2017-05-20 15:36] LABS: Albumin 2.5 g/dL (3.4-5.0); BUN/Creatinine Ratio 17.8; Bilirubin, Total 0.8 mg/dL (0.2-1.0); Calcium 8.1 mg/dL (8.5-10.1); Total Protein 6.3 g/dL (6.4-8.2)
[2017-05-20 15:46] LABS: Potassium 2.7 mmol/L (3.5-5.1)
[2017-05-20 16:00] VITALS: BP 122/63
[2017-05-20] MEDS: POTASSIUM CHL 20MEQ/100ML 100 ML IV SCH ×3 (17:25→22:53)
[2017-05-20 22:00] VITALS: BP 104/55
[2017-05-21] MEDS: IPRATROPIUM BROM 0.5 MG/2.5ML INH SOL NEB SCH ×4 (02:00→14:50)
[2017-05-21] MEDS: POTASSIUM CHL 20MEQ/100ML 100 ML IV SCH (02:38)
[2017-05-21] MEDS: METOPROLOL TARTRATE 50 MG TAB PO SCH (04:00)
[2017-05-21 05:00] VITALS: BP 134/61
[2017-05-21] MEDS: InsuLIN REG 1unit/0.01ml Soln (100units/ml) SC SCH ×2 (06:31→11:36)
[2017-05-21] MEDS: ACCU-CHEK COMFORT CURVE STRIP VI SCH ×2 (06:32→11:36)
[2017-05-21] MEDS: ACETYLCYSTEINE 10 %(100MG/ML) SOL 4ML NEB SCH ×2 (06:46→14:51)
[2017-05-21] MEDS: Boost Glucose Control 8 Ounces PO SCH ×2 (09:07→12:18)
[2017-05-21 09:44] VITALS: BP 140/68
[2017-05-21] MEDS: PANTOPRAZOLE 40 MG/10 ML VIAL IV SCH (09:57)
[2017-05-21] MEDS: CLOPIDOGREL BISULFATE 75 MG TAB PO SCH (09:57)
[2017-05-21] MEDS: SODIUM CHLOR 0.9% PF (SALINE LOCK) 10ML VIAL IV SCH (09:57)
[2017-05-21] MEDS: DOCUSATE ORAL LIQUID 100 MG/10 ML UD GT SCH (10:12)
[2017-05-21 10:52] VITALS: BP 140/68
[2017-05-21 11:14] VITALS: BP 140/68
[2017-05-21 13:00] VITALS: BP 124/61
== END 2017-05-21 19:36 | DRG 231 ==
LOC: CATH 07:19 → ICU CENTRL 07:20 → DOU IN ICU 16:57 → ICU WEST 04-22 23:25 → DOU IN ICU 05-09 21:41 → TELE-CENTR 05-14 17:35
PROVIDERS: ADMIT Internal Medicine Cardiovascular Disease; ATTEND Internal Medicine Cardiovascular Disease
PROC: 027136Z Dilation of Coronary Artery, Two Arteries with Three Drug-eluting Intraluminal Devices, Percutaneous Approach (ICD-10-PCS; 2017-04-16)
PROC: 4A023N7 Measurement of Cardiac Sampling and Pressure, Left Heart, Percutaneous Approach (ICD-10-PCS; 2017-04-16)
PROC: B2111ZZ Fluoroscopy of Multiple Coronary Arteries using Low Osmolar Contrast (ICD-10-PCS; 2017-04-16)
PROC: B2151ZZ Fluoroscopy of Left Heart using Low Osmolar Contrast (ICD-10-PCS; 2017-04-16)
PROC: B54DZZZ Ultrasonography of Bilateral Lower Extremity Veins (ICD-10-PCS; 2017-04-19)
PROC: 021109W Bypass Coronary Artery, Two Arteries from Aorta with Autologous Venous Tissue, Open Approach (ICD-10-PCS; 2017-04-23)
PROC: 06BP4ZZ Excision of Right Saphenous Vein, Percutaneous Endoscopic Approach (ICD-10-PCS; 2017-04-23)
PROC: 5A1221Z Performance of Cardiac Output, Continuous (ICD-10-PCS; 2017-04-23)
PROC: 02100Z9 Bypass Coronary Artery, One Artery from Left Internal Mammary, Open Approach (ICD-10-PCS; principal; 2017-04-23 08:33)
PROC: 5A09357 Assistance with Respiratory Ventilation, Less than 24 Consecutive Hours, Continuous Positive Airway Pressure (ICD-10-PCS; 2017-04-24)
PROC: 5A09357 Assistance with Respiratory Ventilation, Less than 24 Consecutive Hours, Continuous Positive Airway Pressure (ICD-10-PCS; 2017-04-25)
PROC: 0W993ZZ Drainage of Right Pleural Cavity, Percutaneous Approach (ICD-10-PCS; 2017-04-27)
PROC: 0BH17EZ Insertion of Endotracheal Airway into Trachea, Via Natural or Artificial Opening (ICD-10-PCS; 2017-05-02)
PROC: 5A1945Z Respiratory Ventilation, 24-96 Consecutive Hours (ICD-10-PCS; 2017-05-02)
PROC: 5A09357 Assistance with Respiratory Ventilation, Less than 24 Consecutive Hours, Continuous Positive Airway Pressure (ICD-10-PCS; 2017-05-06)
PROC: 5A09357 Assistance with Respiratory Ventilation, Less than 24 Consecutive Hours, Continuous Positive Airway Pressure (ICD-10-PCS; 2017-05-07)
PROC: 02HV33Z Insertion of Infusion Device into Superior Vena Cava, Percutaneous Approach (ICD-10-PCS; 2017-05-09)
DX: I25.10 Atherosclerotic heart disease of native coronary artery without angina pectoris (principal); G93.41 Metabolic encephalopathy; I61.5 Nontraumatic intracerebral hemorrhage, intraventricular; I63.212 Cerebral infarction due to unspecified occlusion or stenosis of left vertebral artery; J96.90 Respiratory failure, unspecified, unspecified whether with hypoxia or hypercapnia; I62.00 Nontraumatic subdural hemorrhage, unspecified; T82.855A Stenosis of coronary artery stent, initial encounter; E44.0 Moderate protein-calorie malnutrition; R47.01 Aphasia; G81.91 Hemiplegia, unspecified affecting right dominant side; Y84.0 Cardiac catheterization as the cause of abnormal reaction of the patient, or of later complication, without mention of misadventure at the time of the procedure; Y92.89 Other specified places as the place of occurrence of the external cause; E11.319 Type 2 diabetes mellitus with unspecified diabetic retinopathy without macular edema; Z68.23 Body mass index [BMI] 23.0-23.9, adult; E11.65 Type 2 diabetes mellitus with hyperglycemia; E11.40 Type 2 diabetes mellitus with diabetic neuropathy, unspecified; E11.51 Type 2 diabetes mellitus with diabetic peripheral angiopathy without gangrene; E87.6 Hypokalemia; K59.00 Constipation, unspecified; G47.00 Insomnia, unspecified; E11.59 Type 2 diabetes mellitus with other circulatory complications; I11.9 Hypertensive heart disease without heart failure; E78.5 Hyperlipidemia, unspecified; Z79.4 Long term (current) use of insulin; Z79.899 Other long term (current) drug therapy; Z82.0 Family history of epilepsy and other diseases of the nervous system; Z82.49 Family history of ischemic heart disease and other diseases of the circulatory system; Z82.5 Family history of asthma and other chronic lower respiratory diseases; Z83.3 Family history of diabetes mellitus; Z88.1 Allergy status to other antibiotic agents; Z91.018 Allergy to other foods; Z88.2 Allergy status to sulfonamides; Z88.8 Allergy status to other drugs, medicaments and biological substances; Z79.82 Long term (current) use of aspirin
CPT/HCPCS: 32555; 36415; 36569; 36600; 70450; 70496; 71045; 71046; 76604; 76942; 80048; 80053; 81001; 81015; 81025; 82805; 82947; 82962; 83735; 84100; 84132; 85025; 85576; 85610; 85730; 86850; 86900; 86901; 86920; 87040; 87070; 87077; 87081; 87186; 87205; 92523; 92526; 92610; 92928; 93005; 93306; 93458; 93886; 93970; 94002; 94003; 94640; 94660; 95819; 97110; 97116; 97163; 97530; 99152; 99153; C1751; C1768; C1874; C9113; G0463; J0153; J0282; J0330; J0610; J1100; J1642; J1644; J1815; J1885; J1956; J2001; J2250; J2405; J2440; J2704; J3480; J7060

== ENCOUNTER → 2017-08-13 | Outpatient (CLI) | payer MEDICARE, OTHER ==
[~2017-08-13] MED LIST changes: -ANGIOMAX 250 MG VIAL IV ONE; +DIP25C PO; -fentaNYL CITRATE 100 MCG/2 ML VL ONE
[2017-08-13 10:50] VITALS: BP 153/87
[2017-08-13 11:15] VITALS: BP 144/80
[2017-08-13 12:05] LABS: Basophils # (auto) 0 uL; Basophils % (auto) 0.6 % (0.0-2.0); Eosinophils # (auto) 0.1 uL; Eosinophils % (auto) 1.8 % (0.0-7.0); Hematocrit 35.9 % (36.0-46.0); Hemoglobin 11.4 g/dL (12.2-16.2); Lymphocytes # (auto) 1.3 uL; Lymphocytes % (auto) 18.7 % (10.0-50.0); Mean Corpuscular Hgb Conc. 31.8 g/dL (32.0-36.0); Mean Corpuscular Volume 85.1 fL (80.0-100.0); Monocytes # (auto) 0.6 uL; Monocytes % (auto) 9.2 % (0.0-12.0); Neutrophils # (auto) 4.9 uL; Neutrophils % (auto) 69.7 % (37.0-80.0); Platelet Count (auto) 278 10^3/uL (140-450); Red Blood Cells 4.21 10^6/uL (4.0-5.20); Red Cell Distribution Width 15.6 % (11.8-14.3)
[2017-08-13 12:18] LABS: BUN/Creatinine Ratio 25.9; Calcium 9.2 mg/dL (8.5-10.1); Potassium 4.5 mmol/L (3.5-5.1)
== END | disposition home or self-care (01) ==
LOC: Rad HDHVI 09:30
PROVIDERS: ATTEND Internal Medicine Cardiovascular Disease
DX: I08.1 Rheumatic disorders of both mitral and tricuspid valves (principal); I11.0 Hypertensive heart disease with heart failure; I50.23 Acute on chronic systolic (congestive) heart failure; E11.9 Type 2 diabetes mellitus without complications; J45.909 Unspecified asthma, uncomplicated; Z95.0 Presence of cardiac pacemaker
CPT/HCPCS: 36415; 80048; 83036; 85025; 93306; 94640; G0463

== ENCOUNTER 2017-09-01 17:14 | Inpatient (IN) | payer MEDICARE, OTHER ==
[~2017-09-01] VITALS: Ht 149.9 cm; Wt 61.1 kg
[~2017-09-01 17:14] MED LIST changes: -DIP25C PO; -IOHEXOL 350 MG/ML 100ML IJ ONE; -SODIUM CHLORIDE 0.9% 1,000 ML IV SCH; -diphenhdrAMINE HCL 50 MG/1 ML VL IV ONE; -diphenhdrAMINE HCL 50 MG/1 ML VL ONE
[2017-09-01 19:53] LABS: Eosinophils # (auto) 0.1 uL
[2017-09-01 19:55] LABS: Basophils # (auto) 0.1 uL; Basophils % (auto) 0.7 % (0.0-2.0); Eosinophils % (auto) 1.7 % (0.0-7.0); Hematocrit 39.5 % (36.0-46.0); Hemoglobin 13.1 g/dL (12.2-16.2); Lymphocytes % (auto) 23.6 % (10.0-50.0); Mean Corpuscular Hemoglobin 26.3 pg (28.0-32.0); Mean Corpuscular Hgb Conc. 33.2 g/dL (32.0-36.0); Mean Corpuscular Volume 79.2 fL (80.0-100.0); Monocytes # (auto) 0.8 uL; Monocytes % (auto) 9.7 % (0.0-12.0); Neutrophils # (auto) 5.5 uL; Neutrophils % (auto) 64.3 % (37.0-80.0); Platelet Count (auto) 228 10^3/uL (140-450); Red Blood Cells 4.99 10^6/uL (4.0-5.20); Red Cell Distribution Width 17.1 % (11.8-14.3); White Blood Cell 8.6 10^3/uL (4.4-10.8)
[2017-09-01 20:11] LABS: Alanine Aminotransferase 32 U/L (13-56); Albumin 3.4 g/dL (3.4-5.0); Anion Gap 9 (5-15); Aspartate Aminotransferase 32 U/L (15-37); BUN/Creatinine Ratio 32.8; Blood Urea Nitrogen 21 mg/dL (7-18); Calcium 9.1 mg/dL (8.5-10.1); Carbon Dioxide 24 mmol/L (21-32); Chloride 105 mmol/L (98-107); GFR African American 117 mL/min; GFR Non-African American 97 mL/min; Glucose 75 mg/dL (74-106); Potassium 3.2 mmol/L (3.5-5.1); Sodium 138 mmol/L (136-145)
[2017-09-01 20:15] LABS: Alkaline Phosphatase 94 U/L (45-117); Bilirubin, Total 0.7 mg/dL (0.2-1.0); Total Protein 8.3 g/dL (6.4-8.2)
[2017-09-01 20:38] LABS: INR 1.03 (0.9-1.15); Partial Thromboplastin Time 24.5 sec (23.78-33.04)
[2017-09-01] MEDS ORDERED: POTASSIUM CHL 20MEQ/100ML 100 ML IV ONE (20:45)
[2017-09-01] MEDS ORDERED: POTASSIUM CHL 10% (20 MEQ/15ML) 15ml ORAL SOLN PO ONE (20:45)
[2017-09-01] MEDS ORDERED: DEXTROSE (50%) 50ML SYRG IV ONE (20:45)
[2017-09-01] MEDS ORDERED: DEXTROSE (50%) 50ML SYRG IV PRN (21:00)
[2017-09-01] MEDS ORDERED: TPN PER PHARMACY 0 ML IV SCH (21:00)
[2017-09-01] MEDS ORDERED: SODIUM CHLORIDE 0.9% 1,000 ML IV ONE (21:00)
[2017-09-01] MEDS ORDERED: HEPARIN SODIUM (PORCINE) 5000 UNITS/ML 1ML VIAL IV ONE (21:00)
[2017-09-01 21:50] LABS: Basophils # (auto) 0 uL; Lymphocytes # (auto) 1.8 uL; Lymphocytes % (auto) 21.4 % (10.0-50.0); Monocytes # (auto) 0.8 uL
[2017-09-01 21:52] LABS: Basophils % (auto) 0.5 % (0.0-2.0); Eosinophils # (auto) 0.2 uL; Hematocrit 38.1 % (36.0-46.0); Hemoglobin 12.5 g/dL (12.2-16.2); Mean Corpuscular Hemoglobin 25.8 pg (28.0-32.0); Mean Corpuscular Hgb Conc. 32.7 g/dL (32.0-36.0); Mean Corpuscular Volume 79.1 fL (80.0-100.0); Monocytes % (auto) 9.8 % (0.0-12.0); Neutrophils # (auto) 5.5 uL; Neutrophils % (auto) 66.3 % (37.0-80.0); Platelet Count (auto) 212 10^3/uL (140-450); Red Blood Cells 4.82 10^6/uL (4.0-5.20); Red Cell Distribution Width 16.6 % (11.8-14.3); White Blood Cell 8.3 10^3/uL (4.4-10.8)
[2017-09-01] MEDS: InsuLIN REG 1unit/0.01ml Soln (100units/ml) SC SCH (22:00)
[2017-09-01 22:11] LABS: INR 1.05 (0.9-1.15); Partial Thromboplastin Time 24.6 sec (23.78-33.04); Prothrombin Time 11.2 sec (9.27-12.13)
[2017-09-01] MEDS ORDERED: AMINO ACID INFUSION IN D10W 1,000 ML IV ONE (22:30)
[2017-09-01] MEDS ORDERED: DIP25C PO (22:40)
[2017-09-01] MEDS: ACCU-CHEK COMFORT CURVE STRIP VI SCH (23:10)
[2017-09-01] MEDS: HEPARIN DRIP/D5W 100UNITS/ML 250 ML IV SCH (23:45)
[2017-09-02 02:36] LABS: Urine Bacteria MOD /hpf (None Seen); Urine Blood TRACE /uL (Negative); Urine Mucus FEW (None Seen); Urine Specific Gravity 1.046 (1.001-1.035); Urine WBC 118 /hpf (0 - 5)
[2017-09-02 05:04] VITALS: BP 156/80
[2017-09-02] MEDS: ACCU-CHEK COMFORT CURVE STRIP VI SCH ×4 (06:27→22:16)
[2017-09-02] MEDS: InsuLIN REG 1unit/0.01ml Soln (100units/ml) SC SCH ×4 (06:27→22:00)
[2017-09-02 06:50] LABS: INR 1.33 (0.9-1.15)
[2017-09-02 06:58] LABS: Partial Thromboplastin Time 116.5 sec (23.78-33.04)
[2017-09-02 09:00] VITALS: BP 156/68
[2017-09-02] MEDS: LEVOFLOXACIN 500MG 100 ML IV SCH ×2 (09:08→09:09)
[2017-09-02 09:30] LABS: BUN/Creatinine Ratio 30.4; Bilirubin, Total 0.7 mg/dL (0.2-1.0); Calcium 8.5 mg/dL (8.5-10.1); Phosphorus 2.2 mg/dL (2.5-4.90); Potassium 3.2 mmol/L (3.5-5.1); Pre Albumin 19.8 mg/dL (20.0-40.0)
[2017-09-02] MEDS ORDERED: NITROGLYCERIN 0.2MG/HR TOPICAL PATCH TD ONE (10:00)
[2017-09-02] MEDS ORDERED: POTASSIUM PHOSPHATE 44 MEQ in D5W 5% 250 ML IV ONE (11:00)
[2017-09-02 13:00] VITALS: BP 144/80
[2017-09-02 14:00] LABS: INR 1.1 (0.9-1.15); Partial Thromboplastin Time 54.1 sec (23.78-33.04); Prothrombin Time 11.7 sec (9.27-12.13)
[2017-09-02] MEDS: KETOROLAC TROMETH 30 MG/ML 1ML VIAL IV PRN (18:47)
[2017-09-02] MEDS ORDERED: AMINO ACID INFUSION IN D10W 1,000 ML IV ONE (20:00)
[2017-09-02] MEDS ORDERED: TPN PER PHARMACY IV NR ×11 (20:00)
[2017-09-02 20:12] LABS: INR 1.09 (0.9-1.15); Partial Thromboplastin Time 48.1 sec (23.78-33.04); Prothrombin Time 11.6 sec (9.27-12.13)
[2017-09-02] MEDS: HEPARIN DRIP/D5W 100UNITS/ML 250 ML IV SCH (20:46)
[2017-09-02] MEDS: HYDROmorphone HCL 2 MG/ML VL IV PRN (20:47)
[2017-09-02 21:47] VITALS: BP 144/85
[2017-09-03] MEDS: LORazepam 2MG/ML-1ML VIAL IV PRN (01:18)
[2017-09-03 02:41] LABS: INR 1.13 (0.9-1.15)
[2017-09-03 04:43] VITALS: BP 141/85
[2017-09-03] MEDS: InsuLIN REG 1unit/0.01ml Soln (100units/ml) SC SCH ×4 (06:16→23:38)
[2017-09-03] MEDS: ACCU-CHEK COMFORT CURVE STRIP VI SCH ×4 (06:16→23:38)
[2017-09-03 06:18] LABS: Basophils # (auto) 0 uL; Hematocrit 31.7 % (36.0-46.0); Lymphocytes # (auto) 1.6 uL; Mean Corpuscular Hgb Conc. 33.6 g/dL (32.0-36.0); Monocytes # (auto) 0.6 uL; Neutrophils # (auto) 3.2 uL; Red Blood Cells 4.02 10^6/uL (4.0-5.20)
[2017-09-03 06:21] LABS: Basophils % (auto) 0.3 % (0.0-2.0); Eosinophils # (auto) 0.2 uL; Hemoglobin 10.7 g/dL (12.2-16.2); Lymphocytes % (auto) 28.5 % (10.0-50.0); Mean Corpuscular Hemoglobin 26.6 pg (28.0-32.0); Monocytes % (auto) 10.2 % (0.0-12.0); Nucleated Red Blood Cells % 0.1 %; Platelet Count (auto) 155 10^3/uL (140-450); Red Cell Distribution Width 16.5 % (11.8-14.3); White Blood Cell 5.6 10^3/uL (4.4-10.8)
[2017-09-03 06:39] LABS: Albumin 2.6 g/dL (3.4-5.0); Bilirubin, Total 0.5 mg/dL (0.2-1.0); Phosphorus 3.6 mg/dL (2.5-4.90); Potassium 3.4 mmol/L (3.5-5.1)
[2017-09-03] MEDS: HYDROmorphone HCL 2 MG/ML VL IV PRN ×3 (07:38→18:37)
[2017-09-03 08:06] LABS: Magnesium 1.5 mg/dL (1.6-2.6)
[2017-09-03 09:00] VITALS: BP 150/85
[2017-09-03] MEDS: KETOROLAC TROMETH 30 MG/ML 1ML VIAL IV PRN (10:10)
[2017-09-03] MEDS: BOOST 8 ounces PO SCH ×2 (10:11→21:37)
[2017-09-03] MEDS: LEVOFLOXACIN 500MG 100 ML IV SCH (10:12)
[2017-09-03 13:00] VITALS: BP 153/77
[2017-09-03] MEDS ORDERED: POTASSIUM CHL 20MEQ/100ML 100 ML IV ONE ×2 (13:30→14:45)
[2017-09-03] MEDS ORDERED: LIDOCAINE 1% (LOCAL ANESTH.) PF 5ml SDV ID ONE (14:00)
[2017-09-03] MEDS ORDERED: POTASSIUM CHL 10 MEQ/100 ML IV SCH (14:00)
[2017-09-03] MEDS ORDERED: EPOETIN ALFA 10,000 UNIT/1 ML VIAL SC ONE (14:30)
[2017-09-03] MEDS ORDERED: POTASSIUM CHL 20MEQ/100ML 100 ML IV SCH (14:30)
[2017-09-03] MEDS ORDERED: MAGNESIUM SULFATE 1GM/100ML 100 ML IV SCH ×2 (14:36→16:00)
[2017-09-03] MEDS ORDERED: DEXTROSE (50%) 50ML SYRG IV SCH (14:45)
[2017-09-03 15:28] LABS: INR 1.05 (0.9-1.15); Prothrombin Time 11.2 sec (9.27-12.13)
[2017-09-03] MEDS: HEPARIN DRIP/D5W 100UNITS/ML 250 ML IV SCH (16:21)
[2017-09-03 17:00] VITALS: BP 148/79
[2017-09-03] MEDS ORDERED: AMINO ACID INFUSION IN D10W 1,000 ML IV ONE (20:00)
[2017-09-03] MEDS ORDERED: TPN PER PHARMACY IV NR ×10 (20:00)
[2017-09-03] MEDS: SODIUM CHLOR 0.9% PF (SALINE LOCK) 10ML VIAL/SYR IV SCH (21:37)
[2017-09-03 22:00] VITALS: BP 146/73
[2017-09-03 22:45] LABS: INR 1.02 (0.9-1.15); Partial Thromboplastin Time 63.5 sec (23.78-33.04); Prothrombin Time 10.9 sec (9.27-12.13)
[2017-09-04 05:05] VITALS: BP 126/72
[2017-09-04 05:23] LABS: INR 1.03 (0.9-1.15); Partial Thromboplastin Time 59.2 sec (23.78-33.04)
[2017-09-04 05:33] LABS: Albumin 2.6 g/dL (3.4-5.0); BUN/Creatinine Ratio 20.7; Bilirubin, Total 0.4 mg/dL (0.2-1.0); Calcium 8.4 mg/dL (8.5-10.1); Phosphorus 2.7 mg/dL (2.5-4.90); Potassium 3.6 mmol/L (3.5-5.1)
[2017-09-04] MEDS: ACCU-CHEK COMFORT CURVE STRIP VI SCH ×4 (05:55→23:35)
[2017-09-04] MEDS: InsuLIN REG 1unit/0.01ml Soln (100units/ml) SC SCH ×4 (05:56→23:38)
[2017-09-04 08:30] VITALS: BP 157/86
[2017-09-04 08:55] VITALS: BP 157/86
[2017-09-04] MEDS: LEVOFLOXACIN 500MG 100 ML IV SCH (09:51)
[2017-09-04] MEDS: BOOST 8 ounces PO SCH ×2 (10:00→21:16)
[2017-09-04] MEDS: SODIUM CHLOR 0.9% PF (SALINE LOCK) 10ML VIAL/SYR IV SCH ×2 (10:00→21:16)
[2017-09-04 10:38] LABS: Partial Thromboplastin Time 59.6 sec (23.78-33.04); Prothrombin Time 10.7 sec (9.27-12.13)
[2017-09-04 13:05] VITALS: BP 133/94
[2017-09-04] MEDS: HEPARIN DRIP/D5W 100UNITS/ML 250 ML IV SCH (16:52)
[2017-09-04 17:14] VITALS: BP_SYST 111; BP_SYST 138; BP_DIAS 67; BP_DIAS 71
[2017-09-04] MEDS ORDERED: TPN PER PHARMACY IV NR ×9 (20:00)
[2017-09-04] MEDS: LORazepam 2MG/ML-1ML VIAL IV PRN (21:14)
[2017-09-04 22:00] VITALS: BP 144/82
[2017-09-04] MEDS ORDERED: LORazepam 2MG/ML-1ML VIAL IV PRN (22:15)
[2017-09-04] MEDS: ATORVASTATIN 20 MG TAB PO SCH (22:22)
[2017-09-05 05:11] VITALS: BP 143/88
[2017-09-05] MEDS: ACCU-CHEK COMFORT CURVE STRIP VI SCH ×3 (05:30→17:31)
[2017-09-05] MEDS: InsuLIN REG 1unit/0.01ml Soln (100units/ml) SC SCH ×3 (05:31→17:32)
[2017-09-05 06:40] LABS: Basophils # (auto) 0 uL; Basophils % (auto) 0.6 % (0.0-2.0); Eosinophils # (auto) 0.3 uL; Hemoglobin 11.4 g/dL (12.2-16.2); Lymphocytes # (auto) 1.3 uL; Monocytes # (auto) 0.5 uL; Monocytes % (auto) 9.7 % (0.0-12.0); Neutrophils # (auto) 2.7 uL; Nucleated Red Blood Cells % 0.1 %; Red Blood Cells 4.36 10^6/uL (4.0-5.20); White Blood Cell 4.7 10^3/uL (4.4-10.8)
[2017-09-05 06:43] LABS: Eosinophils % (auto) 5.5 % (0.0-7.0); Hematocrit 34.5 % (36.0-46.0); Lymphocytes % (auto) 27.5 % (10.0-50.0); Mean Corpuscular Hemoglobin 26.1 pg (28.0-32.0); Mean Corpuscular Volume 79.1 fL (80.0-100.0); Neutrophils % (auto) 56.7 % (37.0-80.0); Platelet Count (auto) 152 10^3/uL (140-450); Red Cell Distribution Width 16.9 % (11.8-14.3)
[2017-09-05 07:00] LABS: INR 1.02 (0.9-1.15); Partial Thromboplastin Time 67.4 sec (23.78-33.04); Prothrombin Time 10.9 sec (9.27-12.13)
[2017-09-05 07:04] LABS: BUN/Creatinine Ratio 18.5; Potassium 3.6 mmol/L (3.5-5.1)
[2017-09-05 07:05] LABS: Albumin 2.6 g/dL (3.4-5.0); Bilirubin, Total 0.5 mg/dL (0.2-1.0); Calcium 8.5 mg/dL (8.5-10.1); Magnesium 2.1 mg/dL (1.6-2.6); Total Protein 6.4 g/dL (6.4-8.2)
[2017-09-05 08:24] VITALS: BP 145/85
[2017-09-05 09:00] VITALS: BP 145/85
[2017-09-05] MEDS: LEVOFLOXACIN 500MG 100 ML IV SCH (09:49)
[2017-09-05] MEDS: BOOST 8 ounces PO SCH ×2 (09:49→22:07)
[2017-09-05] MEDS: SODIUM CHLOR 0.9% PF (SALINE LOCK) 10ML VIAL/SYR IV SCH ×2 (09:49→22:03)
[2017-09-05] MEDS: ASPirin-EC 81 mg tab PO SCH (09:49)
[2017-09-05 12:53] VITALS: BP 158/67
[2017-09-05 17:00] VITALS: BP 130/64
[2017-09-05] MEDS: HEPARIN DRIP/D5W 100UNITS/ML 250 ML IV SCH (17:15)
[2017-09-05] MEDS ORDERED: TPN PER PHARMACY IV NR ×11 (20:00)
[2017-09-05] MEDS: ATORVASTATIN 20 MG TAB PO SCH (21:55)
[2017-09-05] MEDS: LORazepam 2MG/ML-1ML VIAL IV PRN (21:56)
[2017-09-05 22:00] VITALS: BP 150/84
[2017-09-06] MEDS: InsuLIN REG 1unit/0.01ml Soln (100units/ml) SC SCH ×4 (00:51→18:10)
[2017-09-06 04:51] VITALS: BP 141/69
[2017-09-06] MEDS: ACCU-CHEK COMFORT CURVE STRIP VI SCH ×4 (06:17→18:08)
[2017-09-06 06:38] LABS: Basophils # (auto) 0 uL; Eosinophils # (auto) 0.3 uL; Hematocrit 33.2 % (36.0-46.0); Lymphocytes # (auto) 1.5 uL; Mean Corpuscular Hemoglobin 26.4 pg (28.0-32.0); Monocytes # (auto) 0.6 uL
[2017-09-06 06:41] LABS: Basophils % (auto) 0.6 % (0.0-2.0); Eosinophils % (auto) 5.3 % (0.0-7.0); Hemoglobin 11.1 g/dL (12.2-16.2); Lymphocytes % (auto) 26.6 % (10.0-50.0); Mean Corpuscular Hgb Conc. 33.5 g/dL (32.0-36.0); Mean Corpuscular Volume 78.7 fL (80.0-100.0); Monocytes % (auto) 10.6 % (0.0-12.0); Neutrophils # (auto) 3.1 uL; Neutrophils % (auto) 56.9 % (37.0-80.0); Platelet Count (auto) 149 10^3/uL (140-450); Red Blood Cells 4.22 10^6/uL (4.0-5.20); Red Cell Distribution Width 17.1 % (11.8-14.3); White Blood Cell 5.5 10^3/uL (4.4-10.8)
[2017-09-06 07:08] LABS: Albumin 2.8 g/dL (3.4-5.0); BUN/Creatinine Ratio 27.6; Bilirubin, Total 0.4 mg/dL (0.2-1.0); Calcium 8.9 mg/dL (8.5-10.1); Phosphorus 3.3 mg/dL (2.5-4.90); Potassium 4.1 mmol/L (3.5-5.1); Total Protein 6.7 g/dL (6.4-8.2)
[2017-09-06 07:44] VITALS: BP 125/63
[2017-09-06 07:45] LABS: Partial Thromboplastin Time 66.5 sec (23.78-33.04); Prothrombin Time 10.7 sec (9.27-12.13)
[2017-09-06 08:30] VITALS: BP 125/63
[2017-09-06] MEDS: BOOST 8 ounces PO SCH (09:43)
[2017-09-06] MEDS: LEVOFLOXACIN 500MG 100 ML IV SCH (09:43)
[2017-09-06] MEDS: SODIUM CHLOR 0.9% PF (SALINE LOCK) 10ML VIAL/SYR IV SCH ×2 (09:43→21:28)
[2017-09-06] MEDS: ASPirin-EC 81 mg tab PO SCH (09:43)
[2017-09-06 12:21] VITALS: BP 133/84
[2017-09-06] MEDS: HEPARIN DRIP/D5W 100UNITS/ML 250 ML IV SCH (16:20)
[2017-09-06 16:46] VITALS: BP 142/53
[2017-09-06] MEDS ORDERED: TPN PER PHARMACY IV NR ×10 (20:00)
[2017-09-06] MEDS: ATORVASTATIN 20 MG TAB PO SCH (21:28)
[2017-09-06] MEDS: LORazepam 2MG/ML-1ML VIAL IV PRN (21:28)
[2017-09-06 22:00] VITALS: BP 138/58
[2017-09-07] MEDS: BOOST 8 ounces PO SCH ×3 (00:48→21:31)
[2017-09-07] MEDS: InsuLIN REG 1unit/0.01ml Soln (100units/ml) SC SCH ×5 (01:31→23:39)
[2017-09-07 04:57] VITALS: BP 138/76
[2017-09-07] MEDS: ACCU-CHEK COMFORT CURVE STRIP VI SCH ×5 (06:00→23:22)
[2017-09-07 06:53] LABS: Basophils # (auto) 0 uL; Eosinophils # (auto) 0.4 uL; Hemoglobin 11.2 g/dL (12.2-16.2); Lymphocytes # (auto) 1.6 uL; Monocytes # (auto) 0.7 uL; Neutrophils # (auto) 3.4 uL
[2017-09-07 06:56] LABS: Basophils % (auto) 0.6 % (0.0-2.0); Eosinophils % (auto) 5.9 % (0.0-7.0); Hematocrit 33.4 % (36.0-46.0); Lymphocytes % (auto) 25.9 % (10.0-50.0); Mean Corpuscular Hemoglobin 26.5 pg (28.0-32.0); Mean Corpuscular Hgb Conc. 33.6 g/dL (32.0-36.0); Monocytes % (auto) 11.2 % (0.0-12.0); Neutrophils % (auto) 56.4 % (37.0-80.0); Platelet Count (auto) 153 10^3/uL (140-450); Red Blood Cells 4.23 10^6/uL (4.0-5.20); Red Cell Distribution Width 17.7 % (11.8-14.3)
[2017-09-07 07:11] LABS: Albumin 2.7 g/dL (3.4-5.0); BUN/Creatinine Ratio 27.1; Bilirubin, Total 0.4 mg/dL (0.2-1.0); Calcium 8.8 mg/dL (8.5-10.1); Magnesium 2.4 mg/dL (1.6-2.6); Phosphorus 2.9 mg/dL (2.5-4.90); Potassium 4.2 mmol/L (3.5-5.1); Total Protein 6.7 g/dL (6.4-8.2)
[2017-09-07 07:14] VITALS: BP 148/77
[2017-09-07 08:36] LABS: INR 0.99 (0.9-1.15); Partial Thromboplastin Time 69.9 sec (23.78-33.04); Prothrombin Time 10.6 sec (9.27-12.13)
[2017-09-07] MEDS: LEVOFLOXACIN 500MG 100 ML IV SCH (10:31)
[2017-09-07] MEDS: ASPirin-EC 81 mg tab PO SCH (10:31)
[2017-09-07] MEDS: CLOPIDOGREL BISULFATE 75 MG TAB PO SCH (10:31)
[2017-09-07] MEDS: SODIUM CHLOR 0.9% PF (SALINE LOCK) 10ML VIAL/SYR IV SCH ×2 (10:32→21:31)
[2017-09-07 11:56] VITALS: BP 150/53
[2017-09-07] MEDS ORDERED: TPN PER PHARMACY IV NR ×21 (13:15→20:00)
[2017-09-07 16:06] VITALS: BP 145/88
[2017-09-07] MEDS ORDERED: INSULIN LANTUS (GLARGINE) 1 /0.01ml (100units/ml) SC ONE (17:15)
[2017-09-07] MEDS: HEPARIN DRIP/D5W 100UNITS/ML 250 ML IV SCH (17:46)
[2017-09-07 20:00] VITALS: BP 156/75
[2017-09-07] MEDS: ATORVASTATIN 20 MG TAB PO SCH (21:30)
[2017-09-07 22:12] VITALS: BP 156/75
[2017-09-07] MEDS: LORazepam 2MG/ML-1ML VIAL IV PRN (23:22)
[2017-09-08] MEDS: HEPARIN DRIP/D5W 100UNITS/ML 250 ML IV SCH ×2 (01:08→16:00)
[2017-09-08] MEDS: HYDROmorphone HCL 2 MG/ML VL IV PRN (02:37)
[2017-09-08 05:24] VITALS: BP 153/78
[2017-09-08] MEDS: ACCU-CHEK COMFORT CURVE STRIP VI SCH ×3 (05:29→17:24)
[2017-09-08] MEDS: InsuLIN REG 1unit/0.01ml Soln (100units/ml) SC SCH ×3 (06:03→17:24)
[2017-09-08 07:16] LABS: INR 0.99 (0.9-1.15); Partial Thromboplastin Time 55.4 sec (23.78-33.04); Prothrombin Time 10.6 sec (9.27-12.13)
[2017-09-08 07:24] LABS: Albumin 3.1 g/dL (3.4-5.0); BUN/Creatinine Ratio 29.2; Bilirubin, Total 0.4 mg/dL (0.2-1.0); Calcium 9.3 mg/dL (8.5-10.1); Magnesium 2.4 mg/dL (1.6-2.6); Phosphorus 3.7 mg/dL (2.5-4.90); Potassium 4.1 mmol/L (3.5-5.1); Pre Albumin 17.8 mg/dL (20.0-40.0); Total Protein 7.6 g/dL (6.4-8.2)
[2017-09-08 09:00] VITALS: BP 136/68
[2017-09-08] MEDS: ASPirin-EC 81 mg tab PO SCH (09:21)
[2017-09-08] MEDS: CLOPIDOGREL BISULFATE 75 MG TAB PO SCH (09:21)
[2017-09-08] MEDS: LEVOFLOXACIN 500MG 100 ML IV SCH (09:21)
[2017-09-08] MEDS: INSULIN LANTUS (GLARGINE) 1 /0.01ml (100units/ml) SC SCH ×2 (09:38→21:52)
[2017-09-08] MEDS: SODIUM CHLOR 0.9% PF (SALINE LOCK) 10ML VIAL/SYR IV SCH ×2 (09:38→21:52)
[2017-09-08] MEDS: BOOST 8 ounces PO SCH (09:38)
[2017-09-08 13:00] VITALS: BP 134/80
[2017-09-08 13:40] LABS: Partial Thromboplastin Time 59.1 sec (23.78-33.04); Prothrombin Time 10.7 sec (9.27-12.13)
[2017-09-08] MEDS ORDERED: ONDANSETRON HCL 4 MG/2 ML VIAL IV PRN (15:30)
[2017-09-08 17:08] VITALS: BP 133/73
[2017-09-08] MEDS ORDERED: TPN PER PHARMACY IV NR ×11 (20:00)
[2017-09-08] MEDS: ATORVASTATIN 20 MG TAB PO SCH (21:52)
[2017-09-08] MEDS: Boost Glucose Control 8 Ounces PO SCH (21:52)
[2017-09-08 22:00] VITALS: BP 146/75
[2017-09-09] VITALS (12 sets, daily range): BP systolic 103–157; BP diastolic 51–71
[2017-09-09] MEDS: InsuLIN REG 1unit/0.01ml Soln (100units/ml) SC SCH ×4 (00:07→17:51)
[2017-09-09] MEDS: ACCU-CHEK COMFORT CURVE STRIP VI SCH ×4 (00:07→17:51)
[2017-09-09] MEDS: LORazepam 2MG/ML-1ML VIAL IV PRN (00:14)
[2017-09-09 05:49] LABS: Basophils # (auto) 0 uL; Eosinophils # (auto) 0.3 uL; Monocytes # (auto) 0.8 uL; Neutrophils # (auto) 3.8 uL; Red Blood Cells 4.25 10^6/uL (4.0-5.20)
[2017-09-09 05:51] LABS: Basophils % (auto) 0.4 % (0.0-2.0); Eosinophils % (auto) 4.8 % (0.0-7.0); Hematocrit 33.4 % (36.0-46.0); Hemoglobin 11.1 g/dL (12.2-16.2); Lymphocytes # (auto) 2.1 uL; Lymphocytes % (auto) 29.1 % (10.0-50.0); Mean Corpuscular Hemoglobin 26.2 pg (28.0-32.0); Mean Corpuscular Hgb Conc. 33.4 g/dL (32.0-36.0); Mean Corpuscular Volume 78.6 fL (80.0-100.0); Monocytes % (auto) 11.9 % (0.0-12.0); Neutrophils % (auto) 53.8 % (37.0-80.0); Platelet Count (auto) 167 10^3/uL (140-450); White Blood Cell 7.1 10^3/uL (4.4-10.8)
[2017-09-09 05:58] LABS: INR 0.96 (0.9-1.15); Partial Thromboplastin Time 49.8 sec (23.78-33.04); Prothrombin Time 10.3 sec (9.27-12.13)
[2017-09-09 06:10] LABS: Albumin 2.8 g/dL (3.4-5.0); BUN/Creatinine Ratio 31.9; Bilirubin, Total 0.5 mg/dL (0.2-1.0); Calcium 9.2 mg/dL (8.5-10.1); Magnesium 2.2 mg/dL (1.6-2.6); Phosphorus 3.8 mg/dL (2.5-4.90); Potassium 3.7 mmol/L (3.5-5.1); Total Protein 6.8 g/dL (6.4-8.2)
[2017-09-09] MEDS: Boost Glucose Control 8 Ounces PO SCH ×2 (08:00→18:15)
[2017-09-09] MEDS: CLOPIDOGREL BISULFATE 75 MG TAB PO SCH (09:54)
[2017-09-09] MEDS: LEVOFLOXACIN 500MG 100 ML IV SCH (09:55)
[2017-09-09] MEDS: ASPirin-EC 81 mg tab PO SCH (09:55)
[2017-09-09] MEDS: INSULIN LANTUS (GLARGINE) 1 /0.01ml (100units/ml) SC SCH ×2 (09:58→22:00)
[2017-09-09] MEDS: SODIUM CHLOR 0.9% PF (SALINE LOCK) 10ML VIAL/SYR IV SCH ×2 (09:58→22:00)
[2017-09-09 13:50] LABS: INR 0.97 (0.9-1.15); Prothrombin Time 10.4 sec (9.27-12.13)
[2017-09-09 14:00] LABS: Partial Thromboplastin Time 76.7 sec (23.78-33.04)
[2017-09-09] MEDS: HEPARIN DRIP/D5W 100UNITS/ML 250 ML IV SCH (14:35)
[2017-09-09 19:32] LABS: INR 0.96 (0.9-1.15); Partial Thromboplastin Time 69.7 sec (23.78-33.04); Prothrombin Time 10.3 sec (9.27-12.13)
[2017-09-09] MEDS ORDERED: TPN PER PHARMACY IV NR ×11 (20:00)
[2017-09-09] MEDS ORDERED: SUCCINYLCHOLINE CHLORIDE 20 MG/ML 10ML VIAL IV ONE (21:11)
[2017-09-09] MEDS ORDERED: ETOMIDATE (2MG/ML) 20ML VIAL IV ONE (21:11)
[2017-09-09] MEDS ORDERED: PROPOFOL 100 ML IV ONE (21:22)
[2017-09-09] MEDS: ATORVASTATIN 20 MG TAB PO SCH (22:00)
[2017-09-09] MEDS ORDERED: PROPOFOL 100 ML IV SCH (22:07)
[2017-09-09 23:55] LABS: Basophils # (auto) 0 uL; Eosinophils # (auto) 0.1 uL; Monocytes # (auto) 0.9 uL
[2017-09-09 23:57] LABS: Basophils % (auto) 0.2 % (0.0-2.0); Eosinophils % (auto) 0.5 % (0.0-7.0); Hematocrit 31.7 % (36.0-46.0); Hemoglobin 10.5 g/dL (12.2-16.2); Lymphocytes # (auto) 1.3 uL; Lymphocytes % (auto) 12.9 % (10.0-50.0); Mean Corpuscular Hgb Conc. 33.1 g/dL (32.0-36.0); Mean Corpuscular Volume 78.6 fL (80.0-100.0); Monocytes % (auto) 8.9 % (0.0-12.0); Neutrophils % (auto) 77.5 % (37.0-80.0); Platelet Count (auto) 159 10^3/uL (140-450); Red Blood Cells 4.03 10^6/uL (4.0-5.20); Red Cell Distribution Width 18.3 % (11.8-14.3); White Blood Cell 10.3 10^3/uL (4.4-10.8)
[2017-09-10] VITALS (82 sets, daily range): BP systolic 50–163; BP diastolic 30–97
[2017-09-10 00:21] LABS: Albumin 2.8 g/dL (3.4-5.0); BUN/Creatinine Ratio 29.9; Bilirubin, Total 0.4 mg/dL (0.2-1.0); Calcium 9.3 mg/dL (8.5-10.1); Potassium 3.2 mmol/L (3.5-5.1); Total Protein 6.9 g/dL (6.4-8.2)
[2017-09-10] MEDS: InsuLIN REG 1unit/0.01ml Soln (100units/ml) SC SCH ×4 (01:00→17:45)
[2017-09-10] MEDS: ACCU-CHEK COMFORT CURVE STRIP VI SCH ×4 (01:00→17:45)
[2017-09-10] MEDS ORDERED: MANNITOL 20 % (20GM/100ML) 500 ML IV ONE (03:36)
[2017-09-10] MEDS ORDERED: MANNITOL 20% SOLN 100 gm/500ml 250 ML IV ONE (04:00)
[2017-09-10] MEDS ORDERED: NOREPINEPHRINE 8 MG/250ML KIT 250 ML IV ONE (04:15)
[2017-09-10] MEDS: NOREPINEPHRINE 8 MG/250ML KIT 250 ML IV SCH ×2 (04:28→06:30)
[2017-09-10 05:20] LABS: Basophils # (auto) 0 uL; Basophils % (auto) 0.2 % (0.0-2.0); Eosinophils # (auto) 0 uL; Eosinophils % (auto) 0.4 % (0.0-7.0); Hematocrit 28.4 % (36.0-46.0); Hemoglobin 9.6 g/dL (12.2-16.2); Mean Corpuscular Hemoglobin 26.4 pg (28.0-32.0); Mean Corpuscular Hgb Conc. 33.6 g/dL (32.0-36.0); Mean Corpuscular Volume 78.5 fL (80.0-100.0); Monocytes # (auto) 1.1 uL; Neutrophils # (auto) 6.8 uL; Neutrophils % (auto) 76.4 % (37.0-80.0); Platelet Count (auto) 162 10^3/uL (140-450); Red Blood Cells 3.63 10^6/uL (4.0-5.20); White Blood Cell 8.9 10^3/uL (4.4-10.8)
[2017-09-10 05:45] LABS: Albumin 2.3 g/dL (3.4-5.0); BUN/Creatinine Ratio 25.7; Bilirubin, Total 0.4 mg/dL (0.2-1.0); Calcium 8.4 mg/dL (8.5-10.1); Phosphorus 2.1 mg/dL (2.5-4.90); Potassium 3.5 mmol/L (3.5-5.1); Total Protein 5.7 g/dL (6.4-8.2)
[2017-09-10] MEDS ORDERED: SODIUM CHL 3% 500 ML IV ONE (06:00)
[2017-09-10 07:57] LABS: INR 0.95 (0.9-1.15); Partial Thromboplastin Time 24.7 sec (23.78-33.04); Prothrombin Time 10.2 sec (9.27-12.13)
[2017-09-10] MEDS: Boost Glucose Control 8 Ounces PO SCH (08:00)
[2017-09-10] MEDS ORDERED: POTASSIUM CHL 20MEQ/100ML 100 ML IV ONE ×2 (08:15→10:30)
[2017-09-10] MEDS ORDERED: SODIUM PHOSP 20MEQ(15MMOL) IN NS 100 ML IV ONE (08:15)
[2017-09-10] MEDS ORDERED: MANNITOL IV SCH (09:00)
[2017-09-10] MEDS: LEVOFLOXACIN 500MG 100 ML IV SCH (10:12)
[2017-09-10] MEDS: INSULIN LANTUS (GLARGINE) 1 /0.01ml (100units/ml) SC SCH (10:12)
[2017-09-10] MEDS: SODIUM CHLOR 0.9% PF (SALINE LOCK) 10ML VIAL/SYR IV SCH (10:12)
[2017-09-10 10:23] LABS: BUN/Creatinine Ratio 24.2; Calcium 9.5 mg/dL (8.5-10.1); Potassium 3.5 mmol/L (3.5-5.1)
[2017-09-10] MEDS: MANNITOL IV SCH ×2 (10:44→15:29)
[2017-09-10] MEDS ORDERED: InsuLIN REG 1unit/0.01ml Soln (100units/ml) SC ONE (18:45)
[2017-09-10] MEDS ORDERED: MORPHINE SULFATE 8mg/ml INJ SDV IV PRN (19:00)
[2017-09-10] MEDS ORDERED: LORazepam 2MG/ML-1ML VIAL IV PRN (19:00)
[2017-09-10] MEDS ORDERED: TPN PER PHARMACY IV NR ×12 (20:00)
== END 2017-09-10 23:18 | disposition expired | DRG 64 ==
LOC: ER 17:14 → TELE 17:15 → TELE-WESTW 22:12 → DOU IN ICU 09-09 21:38
PROVIDERS: ADMIT Internal Medicine Cardiovascular Disease; ATTEND Internal Medicine Cardiovascular Disease
PROC: 02HV33Z Insertion of Infusion Device into Superior Vena Cava, Percutaneous Approach (ICD-10-PCS; 2017-09-03)
PROC: 5A1935Z Respiratory Ventilation, Less than 24 Consecutive Hours (ICD-10-PCS; principal; 2017-09-10)
PROC: 0BH17EZ Insertion of Endotracheal Airway into Trachea, Via Natural or Artificial Opening (ICD-10-PCS; 2017-09-10)
DX: I61.5 Nontraumatic intracerebral hemorrhage, intraventricular (principal); I50.23 Acute on chronic systolic (congestive) heart failure; G93.5 Compression of brain; J96.00 Acute respiratory failure, unspecified whether with hypoxia or hypercapnia; N39.0 Urinary tract infection, site not specified; G81.91 Hemiplegia, unspecified affecting right dominant side; I61.1 Nontraumatic intracerebral hemorrhage in hemisphere, cortical; I11.0 Hypertensive heart disease with heart failure; E87.6 Hypokalemia; I25.119 Atherosclerotic heart disease of native coronary artery with unspecified angina pectoris; E11.51 Type 2 diabetes mellitus with diabetic peripheral angiopathy without gangrene; E11.65 Type 2 diabetes mellitus with hyperglycemia; Z66 Do not resuscitate; Z51.5 Encounter for palliative care; E78.5 Hyperlipidemia, unspecified; F32.9 Major depressive disorder, single episode, unspecified; R26.2 Difficulty in walking, not elsewhere classified; E11.40 Type 2 diabetes mellitus with diabetic neuropathy, unspecified; I25.5 Ischemic cardiomyopathy; E11.21 Type 2 diabetes mellitus with diabetic nephropathy; E11.59 Type 2 diabetes mellitus with other circulatory complications; R13.10 Dysphagia, unspecified; R47.02 Dysphasia; Z79.82 Long term (current) use of aspirin; Z79.899 Other long term (current) drug therapy; Z82.0 Family history of epilepsy and other diseases of the nervous system; Z82.49 Family history of ischemic heart disease and other diseases of the circulatory system; Z82.5 Family history of asthma and other chronic lower respiratory diseases; Z83.3 Family history of diabetes mellitus; Z86.73 Personal history of transient ischemic attack (TIA), and cerebral infarction without residual deficits; Z95.1 Presence of aortocoronary bypass graft; Z95.0 Presence of cardiac pacemaker; Z80.8 Family history of malignant neoplasm of other organs or systems; Z88.1 Allergy status to other antibiotic agents; Z88.2 Allergy status to sulfonamides; Z88.8 Allergy status to other drugs, medicaments and biological substances; Z91.018 Allergy to other foods
CPT/HCPCS: 36415; 36569; 36600; 70450; 70496; 71045; 80048; 80053; 81001; 82040; 82565; 82805; 82962; 83735; 84100; 84478; 84484; 85025; 85610; 85730; 87070; 87081; 87205; 92610; 93005; 94002; 94003; 94761; 96360; 96361; 96374; 97116; 97163; 97530; G0463; J0330; J1815; J1885; J1956; J2704; J3480; J7060; J7131

== ENCOUNTER → 2017-09-01 | Outpatient (CLI) | payer MEDICARE, OTHER ==
[~2017-09-01] MED LIST changes: +IOHEXOL 350 MG/ML 100ML IJ ONE; +SODIUM CHLORIDE 0.9% 1,000 ML IV SCH; +diphenhdrAMINE HCL 50 MG/1 ML VL IV ONE; +diphenhdrAMINE HCL 50 MG/1 ML VL ONE
[2017-09-01 12:10] VITALS: BP 165/78
[2017-09-01 13:05] LABS: Basophils # (auto) 0 uL; Basophils % (auto) 0.5 % (0.0-2.0); Eosinophils # (auto) 0.1 uL; Lymphocytes # (auto) 1.7 uL; Monocytes # (auto) 0.5 uL; Monocytes % (auto) 7.7 % (0.0-12.0); Nucleated Red Blood Cells % 0.1 %
[2017-09-01 13:06] LABS: Eosinophils % (auto) 1.5 % (0.0-7.0); Hematocrit 41.8 % (36.0-46.0); Hemoglobin 13.7 g/dL (12.2-16.2); Lymphocytes % (auto) 26.9 % (10.0-50.0); Mean Corpuscular Hemoglobin 25.9 pg (28.0-32.0); Mean Corpuscular Hgb Conc. 32.7 g/dL (32.0-36.0); Mean Corpuscular Volume 79.4 fL (80.0-100.0); Neutrophils % (auto) 63.4 % (37.0-80.0); Platelet Count (auto) 233 10^3/uL (140-450); Red Blood Cells 5.27 10^6/uL (4.0-5.20); Red Cell Distribution Width 16.9 % (11.8-14.3); White Blood Cell 6.3 10^3/uL (4.4-10.8)
[2017-09-01 13:13] LABS: BUN/Creatinine Ratio 27.5; Calcium 9.7 mg/dL (8.5-10.1); Magnesium 2.2 mg/dL (1.6-2.6); Potassium 3.4 mmol/L (3.5-5.1)
[2017-09-01 16:55] VITALS: BP 135/64
== END | disposition home or self-care (01) ==
LOC: Rad HDHVI 12:00
PROVIDERS: ATTEND Internal Medicine Cardiovascular Disease
DX: D64.9 Anemia, unspecified (principal); R41.82 Altered mental status, unspecified; G93.89 Other specified disorders of brain; I25.10 Atherosclerotic heart disease of native coronary artery without angina pectoris; I11.0 Hypertensive heart disease with heart failure; I50.43 Acute on chronic combined systolic (congestive) and diastolic (congestive) heart failure; E11.9 Type 2 diabetes mellitus without complications; J45.909 Unspecified asthma, uncomplicated; Z95.0 Presence of cardiac pacemaker; Z86.73 Personal history of transient ischemic attack (TIA), and cerebral infarction without residual deficits
CPT/HCPCS: 36415; 70496; 80048; 82565; 83735; 85025; 96360; 96361; 96374; G0463